=== PATIENT | female | born 1990 | race Caucasian/White ===

== ENCOUNTER 2017-03-11 01:35 | Inpatient (IN) | payer MEDICAID ==
[2017-03-11] VITALS (8 sets, daily range): BP systolic 109–154; BP diastolic 56–95
[~2017-03-11] VITALS: Ht 157.5 cm; Wt 83.9 kg
[~2017-03-11 01:35] MED LIST: DICLEGIS1 TCP PO; SEROQUEL400 MG PO
[2017-03-11] MEDS ORDERED: NOMEDS XX (01:56)
[2017-03-11 02:44] LABS: LYMPH # 3.7 K/mm3 (0.7-4.5); LYMPH % 30.6 % (10-50.0)
[2017-03-11 02:47] LABS: HEMOGLOBIN 12.1 g/dL (12.2-16.2)
--- NOTE | 2017-03-11 02:53 | Emergency Room Report ---
History of Present Illness Time Seen by [id number] Presenting Problem in Triage Pt arrived:Carried Presenting Problem:SORE, REDDENED KNOT ON RIGHT JAIN X 2 DAYS. HAS DEVELOPED INTO A BLISTER, INCREASED SWELLING, REDNESS AND SWELLING SINCE THEN. ALSO SIMILAR LEISION LEFT LEG UNDER THE KNEE CAP X 7 DAYS. 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 N Clinical Suspician of Infection? Y Mental Status: 1 - Regular (Normal Baseline) Sepsis Risk:Severe Sepsis Risk Have you (or family members/close friends) recently traveled outside the [place]? N If Yes, where/when: Have you had exposure to infectious disease within the past month? TB? Other? Specify: Source patient, RN notes reviewed, family, RN/MD Exam Limitations no limitations Comment This is a 26-year-old lady presented to the emergency room with a sore on her RIGHT confucianist, noticed first time 3 days ago, gradually getting worse, associated with chills and subjective fever. 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 The patient is afebrile upon arrival. She also has a history of iv drug abuse, but stated that she has not abused any drugs recently. ALLERGIES Coded Allergies: Sulfa (Sulfonamide Antibiotics) (Mild, 04/21/16) amoxicillin (Mild, 04/21/16) penicillin G (Mild, 04/21/16) cefprozil (From CEFZIL) (04/21/16) Uncoded Allergies: CEFIZIL (Mild, 12/09/15) Home Medications Reported Medications No Home Medications (NO HOME MEDICATIONS) 1 EACH XX ONCE History Medical History General CAD? No Angina: No [place]: No Hypertension? No Hyperlipidemia? No CHF? No DVT? No PE? No COPD? No Asthma? Yes Anemia? No GERD? No Gastric ulcers? No GI Bleed? No Hernia? No Thyroid Problems? No Hypothyroidism? No CVA? No Seizures? No Diabetes? No Renal Insuffiency? No End Stage Renal Disease? No UTI? No Stones? No BPH? No GB Disease: No Nephritic Syndrome? No Asplenia? No Hepatitis? Yes Sickle Cell Disease? No Arthritis? No Migraines? No Cataracts? No Glaucoma? No MRSA? Yes HIV? No TB? No Anxiety? No Depression? No Cancer? No More? No Immunization Hx DT/Tetanus NOT SURE Surgical Hx Previous Surgery?Y OVARIAN CYST X3 PODIATRIST Hx LMP 3 Weeks Ago Social History Smoking Hx Smoker: Current Every Day Smoker Tobacco: Yes Type Cigarettes Packs/day < 1 Pack Alcohol Alcohol: No Review of Systems All Other Systems Reviewed and Negative Constitutional see HPI, chills, fever (subjecttive) Skin lumps Physical Exam Vital Signs Vital Signs Date Time Temp Pulse Resp B/P Pulse O2 O2 Flow FiO2 Ox Delivery Rate 03/11 0241 116 16 128/75 100 03/11 0143 98.4 133 14 154/95 100 General Appearance normal appearance, WD/WN Eye Exam - bilateral eye normal exam, bilateral eye PERRL, bilateral eye EOMI Ear, Nose, Throat hearing grossly normal, normal ENT inspection Neck normal inspection, non-tender, supple, full range of motion Respiratory Status Yes: trachea midline, chest symmetrical, non tender chest. No: respiratory distress. Lung Sounds bilateral: normal breath sounds, lungs clear. 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 Right confucianist with soft tissue swelling, 5x5, erythematous, very tender to paplpation, extending into the right upper eyelid. eyelid Medical Decision Making LABS/Meds/Orders Pt receiving controlled substance in ED? No Comment 0315am - case d/w Dr Spaulding, advised of the patient's presentation, condition and findings, agreeable with admisssion, and management. Plan is to get an ECHO in am, and continue the iv Vancomycin. Results/Orders Laboratory Tests 03/11/17 023: Lactic Acid 1.1 03/11/17229: Sodium 139, Potassium 3.7, Chloride 101, Carbon Dioxide 29, BUN 8, Creatinine 0.7, Estimated Creat Clear 164, Estimated GFR (MDRD) 103, Glucose 90, Calcium 9.2, Total Bilirubin 0.2, AST 12 L, ALT 17, Alkaline Phosphatase 62, Total Protein 8.4 H, Albumin 3.6, Globulin 4.8 H, Albumin/Globulin Ratio 0.8 L, WBC 12.1 H, RBC 4.47, Hgb 12.1 L, Hct 37.9, MCV 84.9, RDW 15.9, Plt Count 356, MPV 7.0 L, Gran % 63.6, Gran # 7.7, Lymphocytes % 30.6, Monocytes % 4.4, Eosinophils % 1.0, Basophils % 0.3, Lymphocytes # 3.7, Monocytes # 0.5, Eosinophils # 0.1, Basophils # 0.0, PUBS MCHC 31.9, MCH 27.0 Current Medication Orders Sig/Sisi Start time Last Medication Dose Route Stop Time Status Admin Sodium Chloride 1,000 ML .STK-MED ONE 03/11 025 DC IV Miscellaneous 1 EACH CONSULT PHARMACY 03/11 024 AC Information * 03/11 1438 Sodium Chloride 1,000 ML .Q1H1M 03/11 024 DC IV 03/11 0345 Sodium Chloride 10 ML PRN PRN 03/11 0245 AC IV 03/12 0245 Orders Procedure Date/time Status Decision to admit 03/11 0319 Active URINALYSIS/COMPLETE 03/11 024 Active URINE 03/11 024 Active DRUG ABUSE SCREEN (10) 03/11 024 Active CULTURE, BLOOD 03/11 023 Active LACTIC ACID 03/11 023 Complete CBC WITH AUTO DIFF 03/11 023 Complete CHEM 12 PROFILE 03/11 0238 Complete Departure Departure Time of Disposition 0329 Disposition Still a Patient Clinical Impression Primary Impression: Cellulitis, face Secondary Impressions: History of drug abuse, History of endocarditis, Sinus tachycardia Condition STABLE Referrals [facility] F II (Family) ED Critical Care Critical Care No at [id number]
--- NOTE | 2017-03-11 02:53 | Emergency Room Report ---
History of Present Illness Time Seen by [id number] Presenting Problem in Triage Pt arrived:Carried Presenting Problem:SORE, REDDENED KNOT ON RIGHT MU-ISM X 2 DAYS. HAS DEVELOPED INTO A BLISTER, INCREASED SWELLING, REDNESS AND SWELLING SINCE THEN. ALSO SIMILAR LEISION LEFT LEG UNDER THE KNEE CAP X 7 DAYS. 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 N Clinical Suspician of Infection? Y Mental Status: 1 - Regular (Normal Baseline) Sepsis Risk:Severe Sepsis Risk Have you (or family members/close friends) recently traveled outside the [place]? N If Yes, where/when: Have you had exposure to infectious disease within the past month? TB? Other? Specify: Source patient, RN notes reviewed, family, RN/MD Exam Limitations no limitations Comment This is a 26-year-old lady presented to the emergency room with a sore on her RIGHT orthodoxy, noticed first time 3 days ago, gradually getting worse, associated with chills and subjective fever. 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 The patient is afebrile upon arrival. She also has a history of iv drug abuse, but stated that she has not abused any drugs recently. ALLERGIES Coded Allergies: Sulfa (Sulfonamide Antibiotics) (Mild, 04/21/16) amoxicillin (Mild, 04/21/16) penicillin G (Mild, 04/21/16) cefprozil (From CEFZIL) (04/21/16) Uncoded Allergies: CEFIZIL (Mild, 12/09/15) Home Medications Reported Medications No Home Medications (NO HOME MEDICATIONS) 1 EACH XX ONCE History Medical History General CAD? No Angina: No [place]: No Hypertension? No Hyperlipidemia? No CHF? No DVT? No PE? No COPD? No Asthma? Yes Anemia? No GERD? No Gastric ulcers? No GI Bleed? No Hernia? No Thyroid Problems? No Hypothyroidism? No CVA? No Seizures? No Diabetes? No Renal Insuffiency? No End Stage Renal Disease? No UTI? No Stones? No BPH? No GB Disease: No Nephritic Syndrome? No Asplenia? No Hepatitis? Yes Sickle Cell Disease? No Arthritis? No Migraines? No Cataracts? No Glaucoma? No MRSA? Yes HIV? No TB? No Anxiety? No Depression? No Cancer? No More? 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 Social History Smoking Hx Smoker: Current Every Day Smoker Tobacco: Yes Type Cigarettes Packs/day < 1 Pack Alcohol Alcohol: No Review of Systems All Other Systems Reviewed and Negative Constitutional see HPI, chills, fever (subjecttive) Skin lumps Physical Exam Vital Signs Vital Signs Date Time Temp Pulse Resp B/P Pulse O2 O2 Flow FiO2 Ox Delivery Rate 03/11 0241 116 16 128/75 100 03/11 0143 98.4 133 14 154/95 100 General Appearance normal appearance, WD/WN Eye Exam - bilateral eye normal exam, bilateral eye PERRL, bilateral eye EOMI Ear, Nose, Throat hearing grossly normal, normal ENT inspection Neck normal inspection, non-tender, supple, full range of motion Respiratory Status Yes: trachea midline, chest symmetrical, non tender chest. No: respiratory distress. Lung Sounds bilateral: normal breath sounds, lungs clear. 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 Right orthodoxy with soft tissue swelling, 5x5, erythematous, very tender to paplpation, extending into the right upper eyelid. eyelid Medical Decision Making LABS/Meds/Orders Pt receiving controlled substance in ED? No Comment 0315am - case d/w Dr Spaulding, advised of the patient's presentation, condition and findings, agreeable with admisssion, and management. Plan is to get an ECHO in am, and continue the iv Vancomycin. Results/Orders Laboratory Tests 03/11/17 023: Lactic Acid 1.1 03/11/17229: Sodium 139, Potassium 3.7, Chloride 101, Carbon Dioxide 29, BUN 8, Creatinine 0.7, Estimated Creat Clear 164, Estimated GFR (MDRD) 103, Glucose 90, Calcium 9.2, Total Bilirubin 0.2, AST 12 L, ALT 17, Alkaline Phosphatase 62, Total Protein 8.4 H, Albumin 3.6, Globulin 4.8 H, Albumin/Globulin Ratio 0.8 L, WBC 12.1 H, RBC 4.47, Hgb 12.1 L, Hct 37.9, MCV 84.9, RDW 15.9, Plt Count 356, MPV 7.0 L, Gran % 63.6, Gran # 7.7, Lymphocytes % 30.6, Monocytes % 4.4, Eosinophils % 1.0, Basophils % 0.3, Lymphocytes # 3.7, Monocytes # 0.5, Eosinophils # 0.1, Basophils # 0.0, PUBS MCHC 31.9, MCH 27.0 Current Medication Orders Sig/Sisi Start time Last Medication Dose Route Stop Time Status Admin Sodium Chloride 1,000 ML .STK-MED ONE 03/11 025 DC IV Miscellaneous 1 EACH CONSULT PHARMACY 03/11 024 AC Information * 03/11 1438 Sodium Chloride 1,000 ML .Q1H1M 03/11 024 DC IV 03/11 0345 Sodium Chloride 10 ML PRN PRN 03/11 0245 AC IV 03/12 0245 Orders Procedure Date/time Status Decision to admit 03/11 0319 Active URINALYSIS/COMPLETE 03/11 024 Active URINE 03/11 024 Active DRUG ABUSE SCREEN (10) 03/11 024 Active CULTURE, BLOOD 03/11 023 Active LACTIC ACID 03/11 023 Complete CBC WITH AUTO DIFF 03/11 023 Complete CHEM 12 PROFILE 03/11 0238 Complete Departure Departure Time of Disposition 0329 Disposition Still a Patient Clinical Impression Primary Impression: Cellulitis, face Secondary Impressions: History of drug abuse, History of endocarditis, Sinus tachycardia Condition STABLE Referrals [facility] F II (Family) ED Critical Care Critical Care No at [phone]
--- NOTE | 2017-03-11 07:23 | PHARMACY CLINIC NOTE ---
Patient Demographics Patient Demographics Admission date: 03/11/17 Date: 03/11/17 Time: 0723 Allergies Coded Allergies: Sulfa (Sulfonamide Antibiotics) (Mild, 04/21/16) amoxicillin (Mild, 04/21/16) penicillin G (Mild, 04/21/16) cefprozil (From CEFZIL) (04/21/16) Uncoded Allergies: CEFIZIL (Mild, 12/09/15) HEIGHT- FT: 5 IN: 2.00 K.[id number] VTE General Information Labs: Laboratory Tests 03/11 0230 Hematology Hgb (12.2 - 16.2 g/dL) 12.1 L Hct (37.0 - 47.0 %) 37.9 Plt Count (142 - 424 K/mm3) 356 Disclaimer The following section includes nursing documentation that has been pulled in for pharmacy review. Patient's VTE score: 0 Patient's VTE Risk: VERY LOW RISK Clinical trial participant? No VTE prophylaxis [id number] VTE prophylaxis ordered? Yes Type of prophylaxis/treatment: PRESTON at 0723
--- NOTE | 2017-03-11 08:56 | CONSULT NOTE ---
Pharmacokinetic Consult Date of consult: 03/11/17 Time of consult: 853 Referring provider: DR. SCHMIDT Reason for consult: VANCOMYCIN DOSING Allergies: Coded Allergies: Sulfa (Sulfonamide Antibiotics) (Mild, 04/21/16) amoxicillin (Mild, 04/21/16) penicillin G (Mild, 04/21/16) cefprozil (From CEFZIL) (04/21/16) Uncoded Allergies: CEFIZIL (Mild, 12/09/15) Home Medications: Reported Medications No Home Medications (NO HOME MEDICATIONS) 1 EACH XX ONCE Height (feet): 5 Height (inches): 2.00 Medical History: CAD? No Angina: No [place]: No Hypertension? No Hyperlipidemia? No CHF? No DVT? No PE? No COPD? No Asthma? Yes Anemia? No GERD? No Gastric ulcers? No GI Bleed? No Hernia? No Thyroid Problems? No Hypothyroidism? No CVA? No Seizures? No Diabetes? No Renal Insuffiency? No UTI? No Stones? No BPH? No GB Disease: No Nephritic Syndrome? No Asplenia? No Hepatitis? Yes Sickle Cell Disease? No Arthritis? No Migraines? No Cataracts? No Glaucoma? No MRSA? Yes HIV? No TB? No Anxiety? No Depression? No Cancer? No More? No Labs: Laboratory Tests 03/11/17 0230: Lactic Acid 1.1 03/11/17 0230: Sodium 139, Potassium 3.7, Chloride 101, Carbon Dioxide 29, BUN 8, Creatinine 0.7, Estimated Creat Clear 164, Estimated GFR (MDRD) 103, Glucose 90, Calcium 9.2, Total Bilirubin 0.2, AST 12 L, ALT 17, Alkaline Phosphatase 62, Total Protein 8.4 H, Albumin 3.6, Globulin 4.8 H, Albumin/Globulin Ratio 0.8 L, WBC 12.1 H, RBC 4.47, Hgb 12.1 L, Hct 37.9, MCV 84.9, RDW 15.9, Plt Count 356, MPV 7.0 L, Gran % 63.6, Gran # 7.7, Lymphocytes % 30.6, Monocytes % 4.4, Eosinophils % 1.0, Basophils % 0.3, Lymphocytes # 3.7, Monocytes # 0.5, Eosinophils # 0.1, Basophils # 0.0, PUBS MCHC 31.9, MCH 27.0 Microbiology 09/11 0230 BLOOD: Anaerobic Blood Culture - RECD 03/11 230 BLOOD: Aerobic Blood Culture - RECD 03/11 230 BLOOD: Anaerobic Blood Culture - RECD 03/11 230 BLOOD: Aerobic Blood Culture - RECD Problem List: 1. Cellulitis, face Plan: BASED ON PATIENT FACTORS, RECOMMEND VANCOMYCIN 1500 MG IV ONCE, FOLLOWED BY VANCOMYCIN 1250 MG IV Q12H. WILL OBTAIN VANCOMYCIN TROUGH LEVEL PRIOR TO 4TH DOSE. PHARMACY WILL FOLLOW DAILY AND ADJUST APPROPRIATE. at 0855
--- NOTE | 2017-03-11 08:58 | HISTORY AND PHYSICAL REPORT ---
History and Physical ([facility]) Date of admission: 03/11/17 Chief complaint: infection on her face History: History of Present Illness: Ms Rebecca marrero s a 26-year-old lady who presented to the emergency room with a sore on her RIGHT scientologist. She first noticed this place 3 days ago. It gradually worsened with edema and pain on this side of the face. She did express some pus from the wound. She experienced chills and subjective fever. Thus she presented to the ER. She was adm for IV ABX. Patient has a history of endocarditis of the tricuspid valve for which she was treated with daptomycin (x6 weeks) at [facility] in [place] approximately 1 year ago. She also has a history of IV drug abuse, but stated that she has not abused any drugs since 10/2016. She arrived to her room about 0300 and has slept little. She cannot tell any difference in the sore on her face. She states that she also has a place on her left leg. Past Medical History: Medical History: CAD? No Angina: No [place]: No Hypertension? No Hyperlipidemia? No CHF? No DVT? No PE? No COPD? No Asthma? No Anemia? No GERD? No Gastric ulcers? No GI Bleed? No Hernia? No Thyroid Problems? No Hypothyroidism? No CVA? No Seizures? No Diabetes? No Renal Insuffiency? No UTI? No Stones? No BPH? No GB Disease: No Nephritic Syndrome? No Asplenia? No Hepatitis? Yes Sickle Cell Disease? No Arthritis? No Migraines? No Cataracts? No Glaucoma? No MRSA? Yes HIV? No TB? No Anxiety? No Depression? No Cancer? No More? No Additional hx: H/O of endocarditis Surgical history: Previous Surgery?Y OVARIAN CYST X3 Medications: Reported Medications No Home Medications (NO HOME MEDICATIONS) 1 EACH XX ONCE Allergies: Coded Allergies: Sulfa (Sulfonamide Antibiotics) (Mild, 04/21/16) amoxicillin (Mild, 04/21/16) penicillin G (Mild, 04/21/16) cefprozil (From CEFZIL) (04/21/16) Uncoded Allergies: CEFIZIL (Mild, 12/09/15) Family History: Family history: Postive for: cancer. Negative for: CAD, DM. Social History: Smoking Hx Tobacco: Yes Smoker: Current Every Day Smoker Type: Cigarettes Packs/day: < 1 Pack Are you exposed to second hand Yes Alcohol: Alcohol: No Hx of Drug Use: Drug Use? No Review of Systems: Constitutional Positive for: chills. ENT No: ear ache, mouth pain, nasal congestion, sore throat. Cardiovascular No: chest pain, edema, palpitations. Respiratory No: shortness of air, non-productive, productive cough (sputum). GI Positive for: nausea, vomitting. No: GERD, abdominal pain, constipation, diarrhea, hematemeis, hematochezia, melena. (female) No: frequency, hematuria. Neurological No: confusion, dizziness, gait problem, headache, seizure, syncope. Musculoskeletal No: extremity pain, extremity swelling, joint pain. Physical Exam: Vital signs: 1ST Vital Signs Result Date Time Pulse Ox 100 03/11 143 B/P 154/95 03/11 143 Temp 98.4 03/11 143 Pulse 133 03/11 143 Resp 14 03/11 143 O2 Delivery ROOM AIR 03/11 400 Exam: General appearance: alert, no acute distress, sitting up in the bed getting ready to eat breakfast Eyes: anicteric, pupils reactive to light ENT: mucous membranes moist, pharynx normal Neck: full range of motion, lymphadenopathy (right), thyroid (normal) Cardiovascular: regular rate & rhythm Respiratory: clear to auscultation (bilat anterior and posterior) ABD: non-distended, soft, no tenderness, no guarding, bowel sounds present Extremities: full range of motion, no peripheral edema, scabs scattered on lower legs; one on left leg has surrounding erythema; Bilateral arms with scabs up both arms ( states she has not used IV Drugs since 10/2016 but picks at the scabs) Skin: edema of right side of the face and periorbital edema; multiple erythemic papules scattered on the face and around the hairline; right scientologist with a small draining wound with surrounding erythema Neuro: alert, oriented, speech clear Lab data: Labs: Laboratory Tests 03/11/17229: Lactic Acid 1.1 03/11/17229: Sodium 139, Potassium 3.7, Chloride 101, Carbon Dioxide 29, BUN 8, Creatinine 0.7, Estimated Creat Clear 164, Estimated GFR (MDRD) 103, Glucose 90, Calcium 9.2, Total Bilirubin 0.2, AST 12 L, ALT 17, Alkaline Phosphatase 62, Total Protein 8.4 H, Albumin 3.6, Globulin 4.8 H, Albumin/Globulin Ratio 0.8 L, WBC 12.1 H, RBC 4.47, Hgb 12.1 L, Hct 37.9, MCV 84.9, RDW 15.9, Plt Count 356, MPV 7.0 L, Gran % 63.6, Gran # 7.7, Lymphocytes % 30.6, Monocytes % 4.4, Eosinophils % 1.0, Basophils % 0.3, Lymphocytes # 3.7, Monocytes # 0.5, Eosinophils # 0.1, Basophils # 0.0, PUBS MCHC 31.9, MCH 27.0 Microbiology 03/11 230 BLOOD: Anaerobic Blood Culture - RECD 03/11 230 BLOOD: Aerobic Blood Culture - RECD 03/11 230 BLOOD: Anaerobic Blood Culture - RECD 03/11 230 BLOOD: Aerobic Blood Culture - RECD Diagnosis(es): 1. Cellulitis, face 2. History of drug abuse 3. History of endocarditis Plan: Hibiclens wash of body to include face; wound culture; continue with IV VANC at 0858
--- NOTE | 2017-03-11 22:01 | RADIOLOGY REPORT PS360 ---
PROCEDURE: 2-D M-mode and color Doppler study INDICATIONS FOR THE TEST: Chest pain+ COPD Heart Murmur+ Tobacco Smoking+ Palpitations Fatigue Syncope Edema+ Hypertension Diabetes Mellitus Rheumatic Fever SOB REYNOLDS Obesity Hyperlipidemia Family History HD Additional History bug bite to rt eye with abscess, hx of endocarditis TV PATIENT INFORMATION HEIGHT: 62 WEIGHT: 185 GENDER: Female B/P: 121/72 2-D/M-MODE INTERPRETATION: 2-D MEASUREMENTS OBSERVED VALUES IN CMS Right Ventricular Dimension (RVDd) 2.5 Interventricular Septum (Thickness)(IVsd) 1.1 Left Ventricular Internal Dimensions(LVIDd) 4.5 Left Ventricular Posterior Wall (Thickness)(LVPWd) 1.0 Aortic Root 2.6 Aortic Cusp Separation 1.7 Left Atrial Dimensions (LAD) 3.9 2D 1. Left atrium is qualitatively mildly enlarged, left ventricle is normal size, there is no concentric left ventricular hypertrophy, visually estimated ejection fraction 55% with no obvious regional wall motion abnormality. 2. The right atrium is normal size, the right ventricle is qualitatively mildly enlarged with normal contractility. 3. The aortic valve is minimally thickened and fibrosed. 4. The mitral and tricuspid valve leaflets are minimally thickened, there is no obvious valvular regurgitation seen. 5. The pulmonic valve is poorly visualized. 6. No significant pericardial effusion noted. DOPPLER INTERROGATION: Doppler interrogation of the aortic mitral and tricuspid valvular presence of mild mitral and tricuspid regurgitation, tricuspid and jet velocity is insufficient for calculation of the right ventricular systolic pressure. CONCLUSION: 1. Normal left ventricular size, preserved left ventricular systolic function, visually estimated ejection fraction 55% with no obvious regional wall motion abnormality. 2. Mildly enlarged right ventricle with normal contractility. 3. Mild mitral and tricuspid regurgitation. 4. No obvious valvular regurgitation identified with this study.
[2017-03-12] VITALS (8 sets, daily range): BP systolic 119–139; BP diastolic 67–88
--- NOTE | 2017-03-12 09:17 | ACUTE CARE PROGRESS NOTE (QUA) ---
Progress Notes Subjective Date 03/12/17 Time 0911 Note Patient does not feel cellulitis is any better; thinks has a place on the left side of face. Is eating without problems; ambulates well; denies CP and SOB; voiding QS Objective Findings Microbiology 03/11 1130 WOUND: Wound Culture - RECD Vital Signs Date Time Temp Pulse Resp B/P Pulse O2 O2 Flow FiO2 Ox Delivery Rate 03/12 0723 98.5 104 18 139/77 98 ROOM AIR 03/12 0400 99.0 92 16 138/88 100 ROOM AIR 03/12 0035 98.4 96 18 137/72 100 ROOM AIR 03/11 2032 98.5 100 20 134/76 99 03/11 1956 98.5 100 20 134/76 99 ROOM AIR 03/11 1630 97.9 99 18 112/64 100 ROOM AIR 03/11 0945 98.6 96 16 109/56 100 Current Medications Acetaminophen 650 MG Q6HP PRN PO Ibuprofen 600 MG Q6HP PRN PO Ibuprofen 0 .STK-MED ONE PO (DC) Vancomycin HCl 1,250 MG Q12H IV Sodium Chloride 250 ML Sodium Chloride 1,000 ML .STK-MED ONE IV (DC) Nicotine 21 MG DAILYP PRN TD Sodium Chloride 1,000 ML .Q8H IV Sodium Chloride 10 ML PRN PRN IV (DC) 03/11 1500 03/11 2300 03/12 0700 Intake Total 475 695 4468 Output Total Balance 427 846 7678 Intake, Oral 017 324 2735 Last VS-Temp:98.5 B/P:139/77 Pulse:104 Resp:18 SaO2:98 ROOM AIR Last weight lbs:185 oz:0 K.916 Method:Stated ECHO 03/11/17 CONCLUSION: 1. Normal left ventricular size, preserved left ventricular systolic function, visually estimated ejection fraction 55% with no obvious regional wall motion abnormality. 2. Mildly enlarged right ventricle with normal contractility. 3. Mild mitral and tricuspid regurgitation. 4. No obvious valvular regurgitation identified with this study. Exam General appearance: alert, no acute distress Cardiovascular: regular rate & rhythm Respiratory: clear to auscultation (bilat anterior and posterior) ABD: soft, no tenderness, bowel sounds present Extremities: multiple scabs on arms and legs; left lower leg erythema has resolved Skin: overall face with less edema and erythema; still with periorbital edema ; some blotches of redness on left side of face and cheek; papular scabs appear less on face ( she states she washed face and body with Hibiclens yesterday) Neuro: alert, oriented, speech clear Assessment/Plan Problem List 1. Cellulitis, face 2. History of drug abuse 3. History of endocarditis Patient condition slightly improved Plan: continue current care This inpt stay is expected to cross 2 MNs from start of care Yes at 0917
--- NOTE | 2017-03-12 09:17 | ACUTE CARE PROGRESS NOTE (QUA) ---
Progress Notes Subjective Date 03/12/17 Time 0911 Note Patient does not feel cellulitis is any better; thinks has a place on the left side of face. Is eating without problems; ambulates well; denies CP and SOB; voiding QS Objective Findings Microbiology 03/11 1130 WOUND: Wound Culture - RECD Vital Signs Date Time Temp Pulse Resp B/P Pulse O2 O2 Flow FiO2 Ox Delivery Rate 03/12 0723 98.5 104 18 139/77 98 ROOM AIR 03/12 0400 99.0 92 16 138/88 100 ROOM AIR 03/12 0035 98.4 96 18 137/72 100 ROOM AIR 03/11 2032 98.5 100 20 134/76 99 03/11 1956 98.5 100 20 134/76 99 ROOM AIR 03/11 1630 97.9 99 18 112/64 100 ROOM AIR 03/11 0945 98.6 96 16 109/56 100 Current Medications Acetaminophen 650 MG Q6HP PRN PO Ibuprofen 600 MG Q6HP PRN PO Ibuprofen 0 .STK-MED ONE PO (DC) Vancomycin HCl 1,250 MG Q12H IV Sodium Chloride 250 ML Sodium Chloride 1,000 ML .STK-MED ONE IV (DC) Nicotine 21 MG DAILYP PRN TD Sodium Chloride 1,000 ML .Q8H IV Sodium Chloride 10 ML PRN PRN IV (DC) 03/11 1500 03/11 2300 03/12 0700 Intake Total 228 100 2316 Output Total Balance 528 720 6703 Intake, Oral 008 851 5839 Last VS-Temp:98.5 B/P:139/77 Pulse:104 Resp:18 SaO2:98 ROOM AIR Last weight lbs:185 oz:0 K.916 Method:Stated ECHO 03/11/17 CONCLUSION: 1. Normal left ventricular size, preserved left ventricular systolic function, visually estimated ejection fraction 55% with no obvious regional wall motion abnormality. 2. Mildly enlarged right ventricle with normal contractility. 3. Mild mitral and tricuspid regurgitation. 4. No obvious valvular regurgitation identified with this study. Exam General appearance: alert, no acute distress Cardiovascular: regular rate & rhythm Respiratory: clear to auscultation (bilat anterior and posterior) ABD: soft, no tenderness, bowel sounds present Extremities: multiple scabs on arms and legs; left lower leg erythema has resolved Skin: overall face with less edema and erythema; still with periorbital edema ; some blotches of redness on left side of face and cheek; papular scabs appear less on face ( she states she washed face and body with Hibiclens yesterday) Neuro: alert, oriented, speech clear Assessment/Plan Problem List 1. Cellulitis, face 2. History of drug abuse 3. History of endocarditis Patient condition slightly improved Plan: continue current care This inpt stay is expected to cross 2 MNs from start of care Yes at 0917
[2017-03-13 00:16] VITALS: BP 122/69
[2017-03-13 04:03] VITALS: BP 106/73
[2017-03-13 08:00] VITALS: BP 134/77
--- NOTE | 2017-03-13 08:20 | ACUTE CARE PROGRESS NOTE (QUA) ---
Progress Notes Subjective Date 03/13/17 Time 0813 Note better today; she thinks the swelling is better; slept well; eating without problems; has been up in the room; states she did wash with Hibiclens yesterday Objective Findings Laboratory Tests 03/12/17 1633: Vancomycin Trough 4.9 L Vital Signs Date Time Temp Pulse Resp B/P Pulse O2 O2 Flow FiO2 Ox Delivery Rate 03/13 040 98.2 78 18 106/73 95 ROOM AIR 03/13 0016 98.2 88 18 122/69 99 ROOM AIR 03/12 2017 98.3 99 18 122/67 100 03/12 1944 98.3 99 18 122/67 100 ROOM AIR 03/12 1600 98.5 84 20 119/72 97 ROOM AIR 03/12 1134 98.2 86 20 122/78 97 ROOM AIR 03/12 0915 98.5 104 18 139/77 98 Current Medications Sodium Chloride 250 ML .STK-MED ONE IV (DC) Vancomycin HCl 0 .STK-MED ONE .ROUTE (DC) Sodium Chloride 0 .STK-MED ONE IV (DC) Vancomycin HCl 0 .STK-MED ONE .ROUTE (DC) Vancomycin HCl 1,500 MG Q8H IV Sodium Chloride 250 ML Sodium Chloride 250 ML .STK-MED ONE IV (DC) Vancomycin HCl 0 .STK-MED ONE .ROUTE (DC) Miscellaneous Information 1 EACH ONCE ONE * (DC) Acetaminophen 0 .STK-MED ONE PO (DC) Acetaminophen 650 MG Q6HP PRN PO Ibuprofen 600 MG Q6HP PRN PO Vancomycin HCl 1,250 MG Q12H IV (DC) Sodium Chloride 250 ML Nicotine 21 MG DAILYP PRN TD Sodium Chloride 1,000 ML .Q8H IV 03/12 1500 03/12 2300 03/13 0700 Intake Total 1000 480 Output Total Balance 1000 480 Intake, Oral 1000 480 Last VS-Temp:98.2 B/P:106/73 Pulse:78 Resp:18 SaO2:95 ROOM AIR Last weight lbs:185 oz:0 K.916 Method:Stated > WOUND CULTURE Final 03/13/17-645 Organism 1 STAPHYLOCOCCUS AUREUS Organism 2 STAPHYLOCOCCUS EPIDERMIDIS S AUREUS S MICHAEL M.I.C. RX M.I.C. RX --------- ------ --------- ------ TRIMET/SULFA <=10 S CLINDAMYCIN <=0.25 S <=0.25 S ERYTHROMYCIN >=8 R >=8 R GENTAMICIN <=0.5 S <=0.5 S LEVOFLOXACIN 4 R <=0.12 R NITROFURANTOIN <=16 S <=16 S OXACILLIN >=4 R >=4 R BENZYLPEN >=0.5 R >=0.5 R RIFAMPIN <=0.5 S <=0.5 S TETRACYCLINE <=1 S <=1 S VANCOMYCIN 1 S 1 S Exam General appearance: alert, active, no acute distress, well-developed, well- nourished Cardiovascular: regular rate & rhythm Respiratory: clear to auscultation (bilat anterior and posterior) Extremities: one inflammed area on left lower leg Skin: face with less edema and minimal left facial erythema Neuro: alert, oriented Assessment/Plan Problem List 1. Cellulitis, face 2. History of drug abuse 3. History of endocarditis Patient condition Improved Plan: Wound culture + MRSA sensitive to Septra and Clindamycin; She is allergic to Sulfa; Can be discharged on the Clindamycin; Will need to continue to wash with Hibiclens This inpt stay is expected to cross 2 MNs from start of care No at 0819
--- NOTE | 2017-03-13 08:36 | CONSULT NOTE ---
Pharmacokinetic Consult Date of consult: 03/13/17 Time of consult: 0831 Referring provider: DR. SCHMIDT Reason for consult: VANCOMYCIN TROUGH LEVEL Allergies: Coded Allergies: Sulfa (Sulfonamide Antibiotics) (Mild, 04/21/16) amoxicillin (Mild, 04/21/16) penicillin G (Mild, 04/21/16) cefprozil (From CEFZIL) (04/21/16) Uncoded Allergies: CEFIZIL (Mild, 12/09/15) Home Medications: Reported Medications No Known Home Medications Height (feet): 5 Height (inches): 2.00 Medical History: CAD? No Angina: No NH: No Hypertension? No Hyperlipidemia? No CHF? No DVT? No PE? No COPD? No Asthma? No Anemia? No GERD? No Gastric ulcers? No GI Bleed? No Hernia? No Thyroid Problems? No Hypothyroidism? No CVA? No Seizures? No Diabetes? No Renal Insuffiency? No UTI? No Stones? No BPH? No GB Disease: No Nephritic Syndrome? No Asplenia? No Hepatitis? Yes Sickle Cell Disease? No Arthritis? No Migraines? No Cataracts? No Glaucoma? No MRSA? Yes HIV? No TB? No Anxiety? No Depression? No Cancer? No More? No Additional hx: H/O of endocarditis Labs: Laboratory Tests 03/12/17 1633: Vancomycin Trough 4.9 L Problem List: 1. Cellulitis, face Plan: BASED ON VANCOMYCIN TROUGH LEVEL AND PATIENT FACTORS, RECOMMEND CHANGING DOSE AND INTERVAL TO VANCOMYCIN 1500 MG IV Q8H. WILL OBTAIN ANOTHER VANCOMYCIN TROUGH LEVEL PRIOR TO DOSE TOMORROW MORNING. PHARMACY WILL CONTINUE TO MONITOR DAILY AND ADJUST APPROPRIATE. at 0835
[2017-03-13] MEDS ORDERED: CLINDAMYCIN HC300 MG PO (09:16)
--- NOTE | 2017-03-14 21:22 | DISCHARGE SUMMARY STANDARD ---
Discharge Summary ([facility]2) Date of admission: 03/11/17 Date of discharge: 03/13/17 Problem List: 1. Cellulitis, face 2. History of drug abuse 3. History of endocarditis History of present illness: History of Present Illness: Ms Rebecca marrero s a 26-year-old lady who presented to the emergency room with a sore on her RIGHT denominational. She first noticed this place 3 days ago. It gradually worsened with edema and pain on this side of the face. She did express some pus from the wound. She experienced chills and subjective fever. Thus she presented to the ER. She was adm for IV ABX. Patient has a history of endocarditis of the tricuspid valve for which she was treated with daptomycin (x6 weeks) at [facility] in [place] approximately 1 year ago. She also has a history of IV drug abuse, but stated that she has not abused any drugs since 10/2016. She arrived to her room about 0300 and has slept little. She cannot tell any difference in the sore on her face. She stated that she also has a place on her left leg. Exam on admission: 1ST Vital Signs Result Date Time Pulse Ox 100 03/11 0143 B/P 154/95 03/11 0143 Temp 98.4 03/11 0143 Pulse 133 03/11 0143 Resp 14 03/11 0143 O2 Delivery ROOM AIR 03/11 0400 Exam: General appearance: alert, no acute distress, sitting up in the bed getting ready to eat breakfast Eyes: anicteric, pupils reactive to light ENT: mucous membranes moist, pharynx normal Neck: full range of motion, lymphadenopathy (right), thyroid (normal) Cardiovascular: regular rate & rhythm Respiratory: clear to auscultation (bilat anterior and posterior) ABD: non-distended, soft, no tenderness, no guarding, bowel sounds present Extremities: full range of motion, no peripheral edema, scabs scattered on lower legs; one on left leg has surrounding erythema; Bilateral arms with scabs up both arms ( states she has not used IV Drugs since 10/2016 but picks at the scabs) Skin: edema of right side of the face and periorbital edema; multiple erythemic papules scattered on the face and around the hairline; right denominational with a small draining wound with surrounding erythema Neuro: alert, oriented, speech clear Hospital Course: Patient was started on IV vanc on admission. She washed her face and body with Hibiclens daily. The facial erythema and edema greatly improved as did the leg erythema and facial acne. She ate well and ambulated in in her room. Culture revealed MRSA sensitive to septra (which she is allergic to ) and clindamycin. On 03/13/17 she was improved and ready to be discharged to home on PO ABX. Laboratory data this visit: 03/11/17 0230: Lactic Acid 1.1 03/11/17 0230: Sodium 139, Potassium 3.7, Chloride 101, Carbon Dioxide 29, BUN 8, Creatinine 0.7, Estimated Creat Clear 164, Estimated GFR (MDRD) 103, Glucose 90, Calcium 9.2, Total Bilirubin 0.2, AST 12 L, ALT 17, Alkaline Phosphatase 62, Total Protein 8.4 H, Albumin 3.6, Globulin 4.8 H, Albumin/Globulin Ratio 0.8 L, WBC 12.1 H, RBC 4.47, Hgb 12.1 L, Hct 37.9, MCV 84.9, RDW 15.9, Plt Count 356, MPV 7.0 L, Gran % 63.6, Gran # 7.7, Lymphocytes % 30.6, Monocytes % 4.4, Eosinophils % 1.0, Basophils % 0.3, Lymphocytes # 3.7, Monocytes # 0.5, Eosinophils # 0.1, Basophils # 0.0, PUBS MCHC 31.9, MCH 27.0 > WOUND CULTURE Final 03/13/17 Organism 1 STAPHYLOCOCCUS AUREUS Organism 2 STAPHYLOCOCCUS EPIDERMIDIS S AUREUS S HUDSONER M.I.C. RX M.I.C. RX --------- ------ --------- ------ TRIMET/SULFA <=10 S CLINDAMYCIN <=0.25 S <=0.25 S ERYTHROMYCIN >=8 R >=8 R GENTAMICIN <=0.5 S <=0.5 S LEVOFLOXACIN 4 R <=0.12 R NITROFURANTOIN <=16 S <=16 S OXACILLIN >=4 R >=4 R BENZYLPEN >=0.5 R >=0.5 R RIFAMPIN <=0.5 S <=0.5 S TETRACYCLINE <=1 S <=1 S VANCOMYCIN 1 S 1 S Imagin03/11/17 ECHO CONCLUSION: 1. Normal left ventricular size, preserved left ventricular systolic function, visually estimated ejection fraction 55% with no obvious regional wall motion abnormality. 2. Mildly enlarged right ventricle with normal contractility. 3. Mild mitral and tricuspid regurgitation. 4. No obvious valvular regurgitation identified with this study. Discharge medications: Start taking the following new medications: Clindamycin Hcl (Clindamycin 300MG) 300 MG CAPSULE 300 MILLIGRAM ORAL FOUR TIMES A DAY Qty = 28 No Refills Disposition: Discharged to home in stable and satisfactory condition. with: WM Lucy HOLBROOK II Follow up: 2 DAYS Comments, Specifics r/t O2, Equipment, Antibiotics, etc: Discussed Rehab Activity: Cont Current activity Diet: Continue same diet Discharge to: HOME Agency needed? N Meds as per reconciliation sheet at [id number]
--- OUTSIDE RECORDS SUMMARY | 2017-04-08 06:11 | External Medical Summary Rpt ---
Author Author , LIBAN Moore LIBAN Address Unknown Phone [email or web address] Care Team Providers Care Strategic Development Manager Name Role Phone [facility] Unavailable [facility]ICE, [facility] TOBY, OTBY Unavailable Unavailable PRETTY JAM, PRETTY JAM Unavailable Unavailable [facility] Unavailable Unavailable [facility]YS[facility]ANS, [facility] FAITH MARIYA, VIANNEY MARIYA Unavailable Unavailable FAITH CAROLA, FAITH CAROLA Unavailable Unavailable DANYELL, DANYELL Unavailable Unavailable DALE RUPINDER, DALE Unavailable Unavailable RUPINDER [facility], Unavailable Unavailable [facility] Unavailable Unavailable INC, [facility] HARTIG KAROLINA, HARTIG Unavailable Unavailable KAROLINA [facility], [facility]YNCH Unavailable Unavailable AND HERNANDEZ LIVAN, HERNANDEZ LIVAN Unavailable Unavailable ANGELA MCKOY, ANGELA Unavailable Unavailable MCKOY LAMBERS DON, LAMBERS Unavailable Unavailable DON [facility], Unavailable Unavailable [facility], Unavailable Unavailable PLL[facility], [facility] LOMELI JOH, Unavailable Unavailable YANI AARON POLICASTRO RUPINDER, Unavailable Unavailable POLICA[facility]O RUPINDER [facility] Unavailable Unavailable [facility], [facility] Unavailable Unavailable [facility], [facility] RENIVÁN TURCIOS, RENUSCTed Unavailable Unavailable KAROLINA HESS, Unavailable Unavailable MARIA A HEA PATEL GUR, PATEL Unavailable Unavailable YAMILA NIEVES, Unavailable Unavailable SARAHI JOSHUA, JOSHUA Unavailable Unavailable [facility] Unavailable Unavailable FLOOR SUPERVISOR , [facility] FLOOR SUPERVISOR [facility] Unavailable Unavailable PH[facility]ICIANS, [facility] ZAID ARAUJO Unavailable Unavailable [facility] Un[facility] Un[facility], [facility] Unavailable Unavailable ME, [facility] BILLY SCO, BILLY SCO Unavailable Unavailable VON HOENE AMA, VON Unavailable Unavailable HOENE AMA TAMI EDEN Unavailable Unavailable MIRANDA Purpose Continuity of Care Document - 04-17-2011 through 2016 Problems Code Diagnosis DOS Provider Status N390 URINARY 07-06-2016 ST TRACT [facility] INFECTION HEALTHCARE SITE NOT EDGE SPECIFIED R5381 OTHER 07-06-2016 [facility] R5383 OTHER 07-06-2016 [facility] O031 DELAY/EXCES 04-23-2016 [facility]IA S [facility] FOLLOW PRACTICE INCMPL SPONT N939 ABNORMAL 04-22-2016 QUALIFIED UTERINE & EMERGENCY VAGINAL SPECIALI BLEEDING UNSPECIFIED R102 PELVIC AND 04-22-2016 QUALIFIED PERINEAL EMERGENCY PAIN SPECIALI R7889 FINDING OTH 04-22-2016 QUALIFIED SPEC EMERGENCY SUBSTANCES SPECIALI NOT NORM FOUND BLOOD Z8614 PERSONAL HX 04-22-2016 [facility] R[facility] INFECTION Z880 ALLERGY 04-22-2016 [facility] Z882 ALLERGY 04-22-2016 [facility] STATUS N898 OTHER 04-21-2016 [facility] SPECIFIED [facility], NONINFLAMMA PLLC TORY DISORDERS VAGINA O036 DELAY/EXCES 04-21-2016 [facility]W [facility] CMPL/UNS SPONT P87024 CARRIER/GERTRUDIS 04-21-2016 [facility] METHIC[facility] RSIST STAPH Z720 TOBACCO USE 04-21-2016 [facility] R799 ABNORMAL 04-19-2016 ST FINDING OF CAT BLOOD PHYSICIANS CHEMISTRY UNSPECIFIED M1288 OTHER 04-18-2016 [facility] ARTHROPATHI ES NEC OTHER SPEC SITE M609 MYOSITIS 04-18-2016 [facility] UNSPECIFIED [facility] 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 INSUFFICIEN CY B1920 UNS VIRAL 04-15-2016 [facility] WITHOUT PHYSICIANS HEPATIC COMA I330 ACUTE AND 04-15-2016 [facility] INFECTIVE PHYSICIANS ENDOCARDITI S M4650 OTHER 04-15-2016 [facility] SPONDYLOPAT PHYSICIANS HIES SITE UNSPECIFIED K48704 SPONDYLOSIS 04-15-2016 [facility] W/O ASSOCIATES MYELOPATH/R [facility] ADICULOPATH Y LUMB RGN R7881 BACTEREMIA 04-15-2016 [facility] PHYS[facility]IANS B1710 ACUTE 03-27-2016 ST HEPATITIS C CAT WITHOUT MED CTR FLOOR SUPERVISOR HEPATIC ST COMA Y51190 OTHER LONG 02-29-2016 ST TERM CAT CURRENT MED CTR FLOOR SUPERVISOR DRUG ST THERAPY A499 BACTERIAL 02-21-2016 ST INFECTION CAT UNSPECIFIED PHYSICIANS 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 02-15-2016 ST C TRICUSPID ACT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 INSUFFICIEN CY I38 ENDOCARDITI 02-15-2016 ANESTHESIA S VALVE GROUP UNSPECIFIED PRACTICE Z452 ENCOUNTER 02-15-2016 RADIOLOGY ADJUSTMENT& ASSOCIATES [facility] VASCULAR ACCESS DEVICE Z331 02-11-2016 [facility] CAT INCIDENTAL PHYSICIANS A4102 SEPSIS D/T 02-10-2016 ST METHICILLIN CAT RSIST [facility]ALTHCARE STAPH [facility] I2690 SEPTIC 02-10-2016 ST PULMONARY CAT EMBO W/O HEALTHCARE ACUTE COR EDGE PULMONALE C00678 PRE-EXISTIN 02-10-2016 ST G ESSENTIAL CAT HTN COMP HEALTHCARE PREG FIRST [facility] TRI C50689 OTH 02-10-2016 ST MATERNAL CAT INF & HEALTHCARE PARASIT DZ EDGE COMP PREG 1ST TRI U00525 DRUG USE 02-10-2016 ST COMPLICATIN CAT G [facility]ALTHCARE [facility] TRIMESTER Z3A01 LESS THAN 8 02-10-2016 ST WEEKS CAT [facility] K5900 CONSTIPATIO 02-06-2016 [facility] N PHYSICIANS, UNSPECIFIED PLLC O2691 02-06-2016 [facility] RELATED [facility]YS[facility], CONDITIONS PLLC UNS 1ST TRIMESTER N8320 UNSPECIFIED 01-28-2016 [facility] OVARIAN PHYSICIANS, CYSTS PLLC R1032 LEFT LOWER 01-28-2016 [facility] QUADRANT [facility], PAIN PLLC J029 ACUTE 12-09-2015 [facility] PHARYNGITIS [facility]YSICIANS, PLLC UNSPECIFIED V741 SCREENING 02-17-2015 ST EXAMINATION CAT FOR PHYSICIANS PULMONARY TUBERCULOSI S 44742 TWIN 07-14-2014 ST CAT UNSPECIFIED MED CTR TO EPISODE OF CARE 36251 OTH CURRENT 08-09-2011 [facility] MAT CONDS MATERNAL CLASSIFIABL MED E ELSW ANTPRTM 71766 DECR 08-09-2011 [facility] MOVMNTS MATERNAL MGMT MOTH MED ANTPRTM COND/COMP 37350 08-09-2011 [facility] DISTRESS MATERNAL AFFECT MED MANAGEMENT MOTH ANTEPARTUM V239 UNSPECIFIED 08-09-2011 [facility] HIGH-RISK MATERNAL MED 25647 UNS 04-17-2011 [facility] ABNORM MGMT MATERNAL MOTH ME ANTPRTM COND/COMP L02.91 CUTANEOUS ABSCESS, UNSPECIFIED L03.211 CELLULITIS OF FACE N83.209 UNSPECIFIED OVARIAN CYST, UNSPECIFIED SIDE R00.0 TACHYCARDIA , UNSPECIFIED R10.9 UNSPECIFIED ABDOMINAL PAIN Z34.90 ENCNTR FOR SUPRVSN OF NORMAL , UNSP, UNSP TRIMESTER Z86.79 PERSONAL HISTORY OF OTHER DISEASES OF THE CIRCULATORY SYSTEM Z87.898 PERSONAL HISTORY OF OTHER SPECIFIED CONDITIONS Allergies, Adverse Reactions, Alerts Clinical Alert Notifications Alert Member has >/= 3 hosp admit & >/= 1 ED visit in 365 days Medications Na ND Rx Da Fi Fi Am Da Di Ph RX Ph St me C No te ll ll ou ys ag ar # ys at rm s nt no ma ic us Or Da si cy ia de te s n re d QU 16 05 06 30 30 00 GR Ac ET 72 -1 -2 .0 00 AN ti IA 90 9- 3- 00 02 T ve PI 14 20 20 24 CO NE 80 17 17 23 UN 1 69 TY FU PENNY BERNARD TE S, 20 IN 0 C. MG TA B NC 57 05 06 30 30 00 GR Ac RT 66 -0 -0 .0 00 AN ti AZ 40 3- 2- 00 02 T ve AP 50 20 20 26 CO IN 01 17 17 48 UN E [address] MG BERNARD S, TA BL IN ET C. BU 64 05 06 90 30 00 GR Ac SP 38 -0 -0 .0 00 AN ti IR 00 3- 2- 00 02 T ve ON 74 20 20 26 CO E 20 17 17 48 UN HC [address] EBRNARD MG S, TA IN BL C. ET QU 16 04 05 30 30 00 GR Ac ET 72 -1 -1 .0 00 AN ti IA 90 7- 9- 00 02 T ve PI 14 20 20 24 CO NE 80 17 17 23 UN [address] RA BERNARD TE S, 20 IN 0 C. MG TA B CL 00 02 03 6. 3 00 WA Ac IN 71 -0 -1 00 00 LG ti DA 35 7- 0- 0 04 RE ve MY 25 20 20 77 EN CI 60 17 17 14 S N 1 42 #0 HC 57 L 63 30 0 MG CA PS UL E IB 55 02 03 21 6 00 GR Ac UP 11 -0 -1 .0 00 AN ti RO 10 8- 0- 00 02 T ve FE 68 20 20 24 CO N 40 17 17 84 UN 80 [address] JOANA WASHBURN S, BL ET IN C. PA 52 02 03 47 30 00 GR Ac RO 37 -0 -1 3. 00 AN ti EX 60 8- 0- 00 02 T ve 02 20 20 0 24 CO 0. 10 17 17 84 UN 12 2 70 TY % OR DR ALCANTARA S, RI NS IN E C. QU 16 01 02 30 30 00 GR Ac ET 72 -0 -1 .0 00 AN ti IA 90 8- 0- 00 02 T ve PI 14 20 20 23 CO NE 80 17 17 77 UN [address] RA BERNARD TE S, 20 IN 0 C. MG TA B QU 16 12 01 30 30 00 GR Ac ET 72 -1 -1 .0 00 AN ti IA 90 2- 3- 00 02 T ve PI 14 20 20 23 CO NE 80 16 17 77 UN [address] RA BERNARD TE S, 20 IN 0 C. MG TA B Procedures Procedure [place] [address] [facility] FREE [address] [place] [address] THYROXINE [facility]ALTH[place] [address] [facility] THYROID [address] [place] [address] STIMULATI NG HEALTHCAR HEALTHCAR [place] [address] [facility] TRIIODOTH [address] [place] [address] YRONINE T3 FREE HEALTHCAR HEALTHCAR E EDGE E EDGE BLOOD 30828 [facility] COUNT [address] [place] [address] COMPLETE AUTOMATED HEALTHCAR HEALTHCAR E EDGE E EDGE COMPREHEN [address] [facility] SIVE [address] [place] [address] METABOLIC PANEL HEALTHCAR HEALTHCAR E EDGE E EDGE INJECTION J2250 [facility] HCL PER 1 MG INJECTION J2405 [facility] ON HCL PER 1 MG INJECTION J2765 [facility] AMIDE HCL UP TO 10 MG BLOOD 22996 [facility] COUNT 6 [facility] HOSP AUTOMATED ANESTHESI 21279 ANESTHESI DANYELL A VAGINAL 6 A GROUP PRACTICE PROCEDURE W/BIOPSY NOS COLLECTIO 40973 [facility] N VENOUS 6 [facility] [place] [address] [facility] SURG 6 [facility] PATHOLOGY [facility] HOSP GROSS&RUPINDER ROSCOPIC EXAM ANESTHESI 74221 [facility] A 6 [facility] INCOMPLET [facility] HOSP E/[place] [address] [facility] INCOMPLET 6 [facility] E [facility]OSP HOSP ANY TRIMESTER SURGICAL GONADOTRO 37472 [facility] PIN 6 [facility] [place] [address] [facility] UTERUS 6 [facility] REAL TIME [facility] HOSP W/IMAGE DCMTN TRANSVAG SBSQ 42936 [facility] OBSERVATI 6 [facility] ON [facility] HOSP CARE/DAY 15 MINUTES INJECTION J2210 [facility]P ONOVINE MALEATE UP TO 0.2 MG INJECTION J2590 [facility] OXYTOCIN 6 [facility] UP TO 10 HOSP HOSP UNITS INJECTION J2704 [facility] PROPOFOL 6 [facility] 10 MG HOSP HOSP INJECTION J3010 [facility] FENTANYL 6 [facility]OSP 0.1 MG SMR PRIM 43567 [facility] SRC WET 6 [facility] NFCT AGT IADNA 19066 [facility] CHLAMYDIA 6 [facility] TRACHOMAT IS AMPLIFIED PROBE TQ BLOOD 39372 [facility] TYPING 6 [facility] SEROLOGIC [facility] HOSP RH (D) GONADOTRO 23936 [facility] PIN 6 [facility] HOSP QUANTITAT [place] ANTIBODY 75183 [facility] SCREEN 6 [facility] RBC EACH HOSP HOSP SERUM TECHNIQUE BLOOD 58216 [facility] TYPING 6 [facility] SEROLOGIC [facility] HOSP ABO COLLECTIO 22212 [facility] N VENOUS 6 [facility] BLOOD [facility]OS[facility] HOSP VENIPUNCT URE IADNA 44645 [facility] NEISSERIA 6 [facility] HOSP HOSP GONORRHO[place] [address] [facility] LACTATE 6 [facility] [place] [place] [address] [facility] INFUSION 6 [facility] HYDRATION [facility] HOSP INITIAL 31 MIN-1 [place] [address] [facility] INFUSION 6 [facility] HYDRATION [facility]OS[facility] HOSP EACH ADDITIONA L HOUR BLOOD 92531 [facility] COUNT 6 [facility] COMPLETE [facility]OSP HOSP AUTO&AUTO DIFRNTL WBC CULTURE 65321 [facility] BACTERIAL 6 [facility] BLOOD HOSP HOSP AEROBIC W/ID ISOLATES BASIC 29489 [facility] METABOLIC 6 [facility] PANEL HOSP HOSP CALCIUM IONIZED URNLS DIP 08170 [facility] 6 [facility] STICK/TAB HOSP HOSP LET RGNT AUTO W/O MICROSCOP Y URINE 56875 [facility] 6 [facility] TEST HOSP HOSP VISUAL COLOR CMPRSN METHS INITIAL 67011 [facility] OBSERVATI 6 [facility] HOSP CARE/DAY 30 MINUTES INITIAL 17300 [facility] INPATIENT 6 CAT AMA CONSULT NEW/ESTAB PHYSICIAN [place] [address] [place] [address] RADIOLOGY PRETTY MCKEON GUIDANCE 6 NEEDLE ASSOCIATE PLACEMENT S OF [facility] BIOPSY RADIOLOGY PRETT[facility]ON MUSCLE 6 PERCUTANE ASSOCIATE OUS S OF [facility] NEEDLE SBSQ 42944 [facility] 6 CLINIC, CARE/DAY INC 15 MINUTES ECHO 63317 [facility] T[facility] R-T 6 CAT JEAN 2D W/WOM-MOD PHYSICIAN E COMPL S SPEC&COLR D INITIAL 14623 [facility] INPATIENT 6 CLINIC, CLINIC, CONSULT INC INC NEW/ESTAB PT 55 MIN MRI 21288 RADIOLOGY BILLY SCO SPINAL 6 CANAL ASSOCIATE LUMBAR S OF [facility] W/O & W/CONTR MATRL SEDIMENTA [address] TION RATE 6 CAT CAT RBC MED CTR MED CTR AUTOMATED FLOOR SUPERVISOR ST FLOOR SUPERVISOR ST COLLECTIO [address] N VENOUS 6 CAT CAT BLOOD MED CTR MED CTR VENIPUNCT FLOOR SUPERVISOR ST FLOOR SUPERVISOR ST URE C-REACTIV [address] E PROTEIN 6 CAT CAT MED CTR MED CTR FLOOR SUPERVISOR ST FLOOR SUPERVIS[address] HEPATIC [address] FUNCTION 6 CAT CAT PANEL MED CTR MED CTR FLOOR SUPERVISOR ST FLOOR SUPERVISOR [address] CULT[address] BACTERIAL 6 CAT CAT BLOOD MED CTR MED CTR AEROBIC FLOOR SUPERVISOR ST FLOOR SUPERVISOR ST W/ID ISOLATES BLOOD [address] COUNT 6 CAT CAT COMPLETE MED CTR MED CTR AUTOMATED FLOOR [place] [address] INFUSION 6 CAT CAT THERAPY/P MED CTR MED CTR ROPHYLAXI FLOOR SUPERVISOR ST FLOOR SUPERVISOR ST S /DX 1ST TO [address] IN[address] 6 CAT CAT DAPTOMYCI MED CTR MED CTR N [address] FLOOR SUPERVISOR ST INFUSION J7050 [address] ST NORMAL 6 CAT CAT SALINE MED CTR MED CTR SOLUTION FLOOR SUPERVISOR ST FLOOR SUPERVISOR ST [address] IN[address] 6 CAT CAT DAPTOMYCI MED CTR MED CTR N [address] [address] INFUSION 6 CAT CAT THERAPY/P MED CTR MED CTR ROPHYLAXI FLOOR SUPERVISOR ST FLOOR SUPERVISOR ST S /DX 1ST TO [address] NORMAL 6 CAT CAT SALINE MED CTR MED CTR SOLUTION FLOOR SUPERVISOR ST FLOOR SUPERVISOR ST [address] NORMAL 6 CAT CAT SALINE MED CTR MED CTR SOLUTION FLOOR SUPERVISOR ST FLOOR SUPERVISOR [address] [place] [address] INFUSION 6 CAT CAT THERAPY/P MED CTR MED CTR ROPHYLAXI FLOOR SUPERVISOR ST FLOOR SUPERVISOR ST S /DX 1ST TO [address] IN[address] 6 CAT CAT DAPTOMYCI MED CTR MED CTR N [address] FLOOR SUPERVISOR ST INFUSION J70[address] ST NORMAL 6 CAT CAT SALINE MED CTR MED CTR SOLUTION FLOOR SUPERVISOR ST FLOOR SU[address]VIS[address] [place] [address] INFUSION 6 CAT CAT THERAPY/P MED CTR MED CTR ROPHYLAXI FLOOR SUPERVISOR ST FLOOR SUPERVISOR ST S /DX 1ST TO [address] IN[address] 6 CAT CAT DAPTOMYCI MED CTR MED CTR N [address] FLOOR SUPERVISOR ST INJECTION J0[address] 6 CAT CAT DAPTOMYCI MED CTR MED CTR N [address] [address] INFUSION 6 CAT CAT THERAPY/P MED CTR MED CTR ROPHYLAXI FLOOR SUPERVISOR ST FLOOR SUPERVISOR ST S /DX 1ST TO [address] SIVE 6 CAT CAT METABOLIC MED CTR MED CTR PANEL FLOOR SUPERVISOR ST FLOOR SUPERVISOR ST BLOOD [address] COUNT 6 CAT CAT COMPLETE MED CTR MED CTR AUTO&AUTO FLOOR SUPERVISOR ST FLOOR SUPERVISOR ST DIFRNTL WBC INFUSION J7050 ST ST NORMAL 6 CAT CAT SALINE MED CTR MED CTR SOLUTION FLOOR SUPERVISOR ST FLOOR SUPERVISOR ST [address] TION RATE 6 CAT CAT RBC MED CTR MED CTR AUTOMATED FLOOR SUPERVISOR ST FLOOR SUPERVISOR ST CREATINE [address] KINASE 6 CAT CAT TOTAL MED CTR MED CTR FLOOR SUPERVISOR ST FLOOR SUPERVISOR ST C-REACTIV [address] E PROTEIN 6 CAT CAT MED CTR MED CTR FLOOR SUPERVISOR ST FLOOR SUPERVISOR ST COLLECTIO [address] N VENOUS 6 CAT CAT BLOOD MED CTR MED CTR VENIPUNCT FLOOR SUPERVISOR ST FLOOR SUPERVISOR ST URE INFUSION J7050 ST ST NORMAL 6 ACT CAT SALINE MED CTR MED CTR SOLUTION FLOOR SUPERVISOR ST FLOOR [address] INFUSION 6 CAT CAT THERAPY/P MED CTR MED CTR ROPHYLAXI FLOOR SUPERVISOR ST FLOOR SUPERVISOR ST S /DX 1ST TO [address] IN[address] 6 CAT CAT DAPTOMYCI MED CTR MED CTR N [address] [address] INFUSION 6 CAT CAT THERAPY/P MED CTR MED CTR ROPHYLAXI FLOOR SUPERVISOR ST FLOOR SUPERVISOR ST S /DX 1ST TO [address] [place] [address] INFUSION 6 CAT CAT THERAPY/P MED CTR MED CTR ROPHYLAXI FLOOR SUPERVISOR ST FLOOR SUPERVISOR ST S /DX 1ST TO [address] IN[address] 6 CAT CAT DAPTOMYCI MED CTR MED CTR N [address] FLOOR SUPERVISOR ST INFUSION J70[address] ST NORMAL 6 CAT CAT SALINE MED CTR MED CTR SOLUTION FLOOR SUPERVISOR ST FLOOR SUPERVISOR ST [address] NORMAL 6 CAT CAT SALINE MED CTR MED CTR SOLUTION FLOOR SUPERVISOR ST FLOOR SUPERVIS[address] INFUSION 6 CAT CAT THERAPY/P MED CTR MED CTR ROPHYLAXI FLOOR SUPERVISOR ST FLOOR SUPERVISOR ST S /DX 1ST TO [address] IN[address] 6 CAT CAT DAPTOMYCI MED CTR MED CTR N [address] [address] INFUSION 6 CAT CAT THERAPY/P MED CTR MED CTR ROPHYLAXI FLOOR SUPERVISOR ST FLOOR SUPERVISOR ST S /DX 1ST TO [address] METABOLIC 6 CAT CAT PANEL MED CTR MED CTR CALCIUM FLOOR SUPERVISOR ST FLOOR SUPERVISOR ST TOTAL BLOOD [address] COUNT 6 CAT CAT COMPLETE MED CTR MED CTR AUTO&AUTO FLOOR SUPERVISOR ST FLOOR SUPERVISOR ST DIFRNTL WBC C-REACTIV [address] E PROTEIN 6 CAT CAT MED CTR MED CTR FLOOR SUPERVISOR ST FLOOR SUPERVISOR ST CREATINE [address] KINASE MB 6 CAT CAT FRACTION MED CTR MED CTR ONLY FLOOR SUPERVISOR ST FLOOR SUPERVISOR ST INJECTION J0878 ST ST 6 CAT CAT DAPTOMYCI MED CTR MED CTR N [address] F[address] FLOOR SUPERVISOR ST INFUSION J7050 [address] ST NORMAL 6 CAT CAT SALINE MED CTR MED CTR SOLUTION FLOOR SUPERVISOR ST FLOOR SUPERVISOR ST [address] TION RATE 6 CAT CAT RBC MED CTR MED CTR AUTOMATED FLOOR SUPERVISOR ST FLOOR SUPERVISOR ST INFUSION J7050 ST ST NORMAL 6 CAT CAT SALINE MED CTR MED CTR SOLUTION FLOOR SUPERVISOR ST FLOOR SUPERVISOR ST [address] IN[address] 6 CAT CAT DAPTOMYCI MED CTR MED CTR N [address] [address] INFUSION 6 CAT CAT THERAPY/P MED CTR MED CTR ROPHYLAXI FLOOR SUPERVISOR ST FLOOR SUPERVISOR ST S /DX 1ST TO [address] [place] [address] INFUSION 6 CAT CAT THERAPY/P MED CTR MED CTR ROPHYLAXI FLOOR SUPERVISOR ST FLOOR SUPERVISOR ST S /DX 1ST TO [address] NORMAL 6 CAT CAT SALINE MED CTR MED CTR SOLUTION FLOOR SUPERVISOR ST FLOOR SUPERVISOR ST [address] IN[address] 6 CAT CAT DAPTOMYCI MED CTR MED CTR N [address] FLOOR SUPERVISOR ST INFUSION J70[address] ST NORMAL 6 CAT CAT SALINE MED CTR MED CTR SOLUTION FLOOR SUPERVISOR ST FLOOR SUPERVISOR [address] [place] [address] INFUSION 6 CAT CAT THERAPY/P MED CTR MED CTR ROPHYLAXI FLOOR SUPERVISOR ST FLOOR SUPERVISOR ST S /DX 1ST TO [address] IN[address] 6 CAT CAT DAPTOMYCI MED CTR MED CTR N [address] FLOOR SUPERVISOR ST INJECTION J0878 [address] ST 6 CAT CAT DAPTOMYCI MED CTR MED CTR N [address] F[address] FLOOR SUPERVISOR ST INFUSION J7050 ST ST NORMAL 6 CAT CAT SALINE MED CTR MED CTR SOLUTION FLOOR SUPERVISOR ST FLOOR SUPERVISOR [address] NORMAL 6 CAT CAT SALINE MED CTR MED CTR SOLUTION FLOOR SUPERVISOR ST FLOOR SUPERVISOR ST [address] IN[address] 6 CAT CAT DAPTOMYCI MED CTR MED CTR N [address] [address] INFUSION 6 CAT CAT THERAPY/P MED CTR MED CTR ROPHYLAXI FLOOR SUPERVISOR ST FLOOR SUPERVISOR ST S /DX 1ST TO [address] [place] [address] INFUSION 6 CAT CAT THERAPY/P MED CTR MED CTR ROPHYLAXI FLOOR SUPERVISOR ST FLOOR SUPERVISOR ST S /DX 1ST TO [address] NORMAL 6 CAT CAT SALINE MED CTR MED CTR SOLUTION FLOOR SUPERVISOR ST FLOOR SUPERVISOR ST [address] IN[address] 6 CAT CAT DAPTOMYCI MED CTR MED CTR N [address] FLOOR SUPERVISOR ST CREATINE [address] KINASE 6 CAT CAT TOTAL MED CTR MED CTR FLOOR SUPERVISOR ST FLOOR SUPERVISOR ST INFUSION J7050 ST ST NORMAL 6 CAT CAT SALINE MED CTR MED CTR SOLUTION FLOOR SUPERVISOR ST FLOOR SUPERVISOR [address] TION RATE 6 CAT CAT RBC MED CTR MED CTR AUTOMATED FLOOR SUPERVISOR ST FLOOR SUPERVISOR ST INJECTION J0878 ST ST 6 CAT CAT DAPTOMYCI MED CTR MED CTR N [address] FLOOR SUPERVISOR ST C-REACTIV [address] E PROTEIN 6 CAT CAT MED CTR MED CTR FLOOR SUPERVISOR ST FLOOR SUPERVISOR ST COLLECTIO [address] N VENOUS 6 CAT CAT BLOOD MED CTR MED CTR VENIPUNCT FLOOR SUPERVISOR ST FLOOR SUPERVISOR ST URE BASIC [address] METABOLIC 6 CAT CAT PANEL MED CTR MED CTR CALCIUM FLOOR SUPERVISOR [place] [address] INFUSION 6 CAT CAT THERAPY/P MED CTR MED CTR ROPHYLAXI FLOOR SUPERVISOR ST FLOOR SUPERVISOR ST S /DX 1ST TO [address] B[address] COUNT 6 CAT CAT COMPLETE MED CTR MED CTR AUTO&AUTO FLOOR SUPERVISOR ST F[place] [address] INFUSION 6 CAT CAT THERAPY/P MED CTR MED CTR ROPHYLAXI FLOOR SUPERVISOR ST FLOOR SUPERVISOR ST S /DX 1ST TO [address] NORMAL 6 CAT CAT SALINE MED CTR MED CTR SOLUTION FLOOR SUPERVISOR ST FLOOR SUPERVISOR ST [address] IN[address] 6 CAT CAT DAPTOMYCI MED CTR MED CTR N [address] FLOOR SUPERVISOR ST INJECTION J0878 [address] ST 6 CAT CAT DAPTOMYCI MED CTR MED CTR N [address]VISOR [address] FLOOR SUPERVISOR ST INFUSION J70[address] ST NORMAL 6 CAT CAT SALINE MED CTR MED CTR SOLUTION FLOOR SUPERVISOR ST FLOOR SU[address]VIS[address] [place] [address] INFUSION 6 CAT CAT THERAPY/P MED CTR MED CTR ROPHYLAXI FLOOR SUPERVISOR ST FLOOR SUPERVISOR ST S /DX 1ST TO [address] [place] [address] INFUSION 6 CAT CAT THERAPY/P MED CTR MED CTR ROPHYLAXI FLOOR SUPERVISOR ST FLOOR SUPERVISOR ST S /DX 1ST TO [address] NORMAL 6 CAT CAT SALINE MED CTR MED CTR SOLUTION FLOOR SUPERVISOR ST FLOOR SUPERVIS[address] 6 CAT [facility] N [address] FLOOR SUPERVISOR ST INJECTION J[address] 6 CAT CAT [facility] N [address] [address] INFUSION 6 CAT CAT THERAPY/P MED CTR MED CTR ROPHYLAXI FLOOR SUPERVISOR ST FLOOR SUPERVISOR ST S /DX 1ST TO [address] IN[address] NORMAL 6 CAT CAT SALINE MED CTR MED CTR SOLUTION FLOOR SUPERVISOR ST FLOOR SUPERVIS[address] NORMAL 6 CAT CAT SALINE MED CTR MED CTR SOLUTION FLOOR SUPERVISOR ST FLOOR SUPERVIS[address] [place] [address] INFUSION 6 CAT CAT THERAPY/P MED CTR MED CTR ROPHYLAXI FLOOR SUPERVISOR ST FLOOR SUPERVISOR ST S /DX 1ST TO [address] IN[address] 6 CAT CAT [facility] MED CTR N [address] FLOOR SUPERVISOR ST INJECTION J0878 [address] 6 CAT CAT DAP[facility] MED [facility] MED CTR N [address] [address] INFUSION 6 CAT CAT THERAPY/P MED CTR MED CTR ROPHYLAXI FLOOR SUPERVISOR ST FLOOR SUPERVISOR ST S /DX 1ST TO [address] IN[address] NORMAL 6 CAT CAT SALINE MED CTR MED CTR SOLUTION FLOOR SUPERVISOR ST FLOOR SUPERVISOR ST 250 CC SBSQ [id number] CARE/DAY 25 PHYSICIAN MINUTES S HOSP[facility] [id number] [facility] DISCHARGE [address] [place] [address] MANAGEMEN PHYSICIAN T > 30 S MIN SBSQ [id number] CARE/DAY 25 PHYSICIAN MINUTES S SBSQ [id number] CARE/DAY 35 PHYSICIAN MINUTES S [place] [id number] [facility]Y [place] [facility] MCKOY VENOUS ASSOCIATE ACCESS S OF [facility] DEV PLACEMENT FLUORO [id number] ST ST SUP VENA 6 [facility] CONTRST E EDGE E EDGE GUID INSERTION [id number] ST ST INFUSION 6 CAT CAT DEVC SUPERIOR HEALTHCAR HEALTHCAR VENA CAVA E EDGE E EDGE PERQ DOPPLER [id number] ST FAITH MARIYA ECHOCARD 6 CAT PULSE WAVE PHYSICIAN W/SPECTRA S L DISPLAY ANES [id number] ANESTHESI FAITH [place] NON-INVAS 6 A GROUP [facility] PRACTICE IMAGING/R ADIATION THERAPY [facility] [address] RADIOLOGY [place] ACCESS 6 MCKOY SITS VSL ASSOCIATE PATENCY S OF [facility] NDL ENTRY ECHO [id number] [facility] TRANSESOP 6 CAT HAG R-T 2D W/PRB PHYSICIAN IMG S ACQUISJ I&R DOP 21242 VIANNEY MARIYA ECHOCARD 6 CAT COLOR FLOW PHYSICIAN VELOCITY S MAPPING INSJ PRPH 42338 [facility] [place] CVC W/O 6 MCKOY SUBQ ASSOCIATE PORT/MOTTLER MACHINE FEEDER S OF NOTH AGE 5 YR/> ECHO 64988 [facility] TTHRC R-T 6 CAT [place] 2D W/WOM-MOD PHYSICIAN PHYSICIAN E COMPL S S SPEC&COLR D INITIAL 96357 [facility] INPATIENT 6 CAT CONSULT NEW/ESTAB PHYSICIAN PT 40 S MIN URNLS DIP 96290 [facility] STICK/TAB INC INC LET REAGENT AUTO MICROSCOP Y COMPREHEN 77227 [facility] SIVE 6 [facility] METABOLIC INC INC PANEL BLOOD 06036 [facility] COUNT 6 [facility] COMPLETE INC INC AUTO&[place] [address] [facility] INFUSION 6 [facility] THERAPY/P INC INC ROPHYLAXI S /DX 1ST TO 1 HR CULTURE 80793 [facility] BACTERIAL 6 [facility] INC INC QUANTTATI VE COLONY COUNT URINE CUL BACT 68699 [facility] XCPT 6 [facility] URINE INC INC BLOOD/[place] [address] [facility] STREPTOCO 6 [facility] CCUS INC INC GROUP A SKIN TEST 25563 [facility] 5 CAT TURCIOS TUBERCULO SIS PHYSICIAN [place] [address] [facility] A SURG 5 CAT HESS PATHOLOGY MED CTR GROSS&RUPINDER ROSCOPIC EXAM [place] PREG 75682 [facility] UTERUS 2 MATERNAL AND W/DETAIL MED MAGUI 1ST GESTATION 91692 [facility] BIOPHYSIC 2 MATERNAL AND AL PROFILE MED W/O NON-STRES S TESTING US PREG 73560 [facility] UTERUS 1 MATERNAL DON W/DETAIL ME MAGUI 1ST GESTATION Encounters Encounter Start End Date Code Location Performer Type Date [facility] ST - 7 7 CAT OUTPATIEN T [facility] EMER[facility] 69909 QUALIFIED POLICASTR DEPT 6 6 O RUPINDER VISIT EMERGENCY HIGH SPECIALI SEVERITY& THREAT FUN EMERGENCY 02358 [facility] 6 6 [facility] T VISIT HIGH/URGE NT SEVERITY [facility]OSP[facility] - 6 6 [facility] OUTPATIEN [facility] T EMERGENCY 05270 [facility] 6 6 [facility] DEPARTMEN INC T VISIT LIMITED/M INOR PROB EMERGENCY 71667 JEWELS LICONA 6 6 PHYSICIAN DEPARTMEN S, [facility] T VISIT HIGH/URGE NT SEVERITY [facility] - 6 6 [facility] OUTPATIEN INC T EMERGENCY 92514 [facility] DEPT 6 6 EMERGENCY GRE VISIT HIGH PHYSICIAN SEVERITY& S THREAT [facility] ST - 6 6 CAT OUTPATIEN MED CTR T [facility] ST - 6 6 CAT OUTPATIEN MED CTR T [facility] ST - 6 6 CAT OUTPATIEN MED CTR T [facility] ST - 6 6 CAT OUTPATIEN MED CTR T [facility] ST - 6 6 CAT OUTPATIEN MED CTR T [facility] - 6 6 CAT OUTPATIEN MED CTR T [facility] - 6 6 CAT OUTPATIEN MED CTR T [facility] - 6 6 CAT OUTPATIEN MED CTR T [facility] - 6 6 CAT OUTPATIEN MED CTR T [facility] - 6 6 CAT OUTPATIEN MED CTR T [facility] 24574 INFECTIOU YANI OUTPATIEN 6 6 S DISEASE AGNIESZKA T VISIT 15 [facility] - 6 6 CAT OUTPATIEN MED CTR T [facility] - 6 6 CAT OUTPATIEN MED CTR T [facility] - 6 6 CAT OUTPATIEN MED CTR T [facility] - 6 6 CAT OUTPATIEN MED CTR T [facility] - 6 6 CAT OUTPATIEN MED CTR T [facility] - 6 6 CAT OUTPATIEN MED CTR T [facility] - 6 6 CAT OUTPATIEN MED CTR T [facility] - 6 6 [facility] OUTPATIEN INC T EMERGENCY 16029 JEWELS PAULAEY 6 6 PHYSICIAN R[facility] [facility] T VISIT HIGH/URGE NT SEVERITY EMERGENCY 27658 [facility] 6 6 [facility] DEPARTMEN INC T VISIT LOW/MODER SEVERITY EMERGENCY 98340 JEWELS RENUSCH 6 6 PHYSICIAN [facility] T VISIT HIGH/URGE NT SEVERITY EMERGENCY 28723 JEWELS RENUSCH 6 6 PHYSICIAN [facility] [employer] [facility] T VISIT MODERATE SEVERITY HOSPITAL [facility] - 6 6 [facility] OUTPATIEN INC T EMERGENCY 25216 [facility] 6 6 [facility] DEPARTMEN INC T VISIT LOW/MODER SEVERITY
--- OUTSIDE RECORDS SUMMARY | 2017-04-08 06:11 | External Medical Summary Rpt ---
Author Author , LIBAN Moore LIBAN Address Unknown Phone [email or web address] [facility] D[facility] Care Team Providers Care Crane Rigger Name Role Phone [facility] Unavailable [facility], [facility] TOBY, TOBY Unavailable Unavailable PRETTY JAM, PRETTY JAM Unavailable Unavailable [facility] Unavailable Unavailable [facility]IC[facility], [facility] FAITH MARIYA, VIANNEY MARIYA Unavailable Unavailable FAITH CAROLA, FAITH CAROLA Unavailable Unavailable DANYELL, DANYELL Unavailable Unavailable DALE RUPINDER, DALE Unavailable Unavailable [facility], Unavailable Unavailable [facility] Unavailable Unavailable INC, [facility] HARTIG KAROLINA, HARTIG Unavailable Unavailable KAROLINA LYNCH AND, LYNCH Unavailable Unavailable AND HERNANDEZ LIVAN, HERNANDEZ LIVAN Unavailable Unavailable ANGELA MCKOY, ANGELA Unavailable Unavailable MCKOY LAMBERS DON, LAMBERS Unavailable Unavailable DON [facility], Unavailable Unavailable [facility], Unavailable Unavailable PLL[facility], [facility] LOMELI JOH, Unavailable Unavailable YANI AARON POLICASTRO RUPINDER, Unavailable Unavailable POLICASTRO RUPINDER [facility] Unavailable Unavailable [facility], [facility] Unavailable Unavailable [facility], [facility] RENIVÁN TURCIOS, RENUSCTed Unavailable Unavailable KAROLINA HESS, Unavailable Unavailable MARIA A HEA PATEL GUR, PATEL Unavailable Unavailable YAMILA NIEVES, Unavailable Unavailable SARAHI JOSHUA, JOSHUA Unavailable Unavailable [facility], Unavailable Unavailable [facility] Unavailable Unavailable CROZER OPERATOR , [facility] CROZER OPERATOR [facility] Unavailable Unavailable PHYSICIANS, [facility] [...] EDGE SPECIFIED R5381 OTHER 07-06-2016 [facility] MALAISE [facility] R5383 OTHER 07-06-2016 ST FATIGUE [facility] O031 DELAY/EXCES 04-23-2016 [facility]IA S [facility] FOLLOW PRACTICE INCMPL SPONT N939 ABNORMAL 04-22-2016 [facility] UTERINE & EMERGENCY VAGINAL SPECIALI BLEEDING UNSPECIFIED R102 PELVIC AND 04-22-2016 QUALIFIED PERINEAL EMERGENCY PAIN SPECIALI R7889 FINDING OTH 04-22-2016 QUALIFIED SPEC EMERGENCY SUBSTANCES SPECIALI NOT NORM FOUND BLOOD Z8614 PERSONAL HX 04-22-2016 [facility] R[facility]ST STAPH INFECTION Z880 ALLERGY 04-22-2016 [facility] Z882 ALLERGY 04-22-2016 [facility] S STATUS N898 OTHER 04-21-2016 [facility] SPECIFIED [facility], NONINFLAMMA PLLC TORY DISORDERS VAGINA O036 DELAY/EXCES 04-21-2016 [facility] FLW INC CMPL/UNS SPONT [id number] CARRIER/GERTRUDIS 04-21-2016 [facility] M[facility] RSIST STAPH Z720 TOBACCO USE 04-21-2016 [facility] R799 ABNORMAL 04-19-2016 ST FINDING [facility] BLOOD PHYSICIANS CHEMISTRY UNSPECIFIED M1288 OTHER 04-18-2016 [facility] ARTHROPATHI ES NEC OTHER SPEC SITE M609 MYOSITIS 04-18-2016 [facility] UNSPECIFIED [facility] 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 INSUFFICIEN CY B1920 UNS VIRAL 04-15-2016 [facility] WITHOUT PHYSICIANS HEPATIC COMA I330 ACUTE AND 04-15-2016 [facility] INFECTIVE PHYSICIANS ENDOCARDITI S M4650 OTHER 04-15-2016 [facility] SPONDYLOPAT PHYSICIANS HIES SITE UNSPECIFIED P33440 SPONDYLOSIS 04-15-2016 [facility] W/O ASSOC[facility]ATES MYELOPATH/R [facility] ADICULOPATH Y LUMB RGN R7881 BACTEREMIA 04-15-2016 [facility] B1710 ACUTE 03-27-2016 ST HEPATITIS C CAT WITHOUT MED CTR CROZER OPERATOR HEPATIC ST COMA O69706 OTHER LONG 02-29-2016 ST TERM CAT CURRENT MED CTR CROZER OPERATOR DRUG ST THERAPY A499 BACTERIAL 02-21-2016 ST INFECTION CAT UNSPECIFIED PHYSICIANS 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 INSUFFICIEN CY I38 ENDOCARDITI 02-15-2016 ANESTHESIA S VALVE GROUP UNSPECIFIED PRACTICE Z452 ENCOUNTER 02-15-2016 [facility]OLOG[facility] ADJUSTMENT& [facility] VASCULAR ACCESS DEVICE Z331 02-11-2016 [facility] INCIDENTAL PHYSICIANS A4102 SEPSIS D/T 02-10-2016 ST METHICILLIN CAT RSIST HEALTHCARE STAPH EDGE I2690 SEPTIC 02-10-2016 ST PULMONARY CAT EMBO W/O HEALTHCARE ACUTE COR EDGE PULMONALE L67931 PRE-EXISTIN 02-10-2016 ST G ESSENTIAL CAT HTN COMP HEALTHCARE PREG FIRST EDGE TRI B46627 OTH 02-10-2016 ST MATERNAL CAT INF & HEALTHCARE PARASIT DZ EDGE COMP PREG 1ST TRI L48827 DRUG USE 02-10-2016 ST COMPLICATIN CAT G [...] EXAMINATION CAT FOR PHYSICIANS PULMONARY TUBERCULOSI S 50151 TWIN 07-14-2014 [facility] UNSPECIFIED MED CTR TO EPISODE OF CARE 67126 OTH CURRENT 08-09-2011 [facility] MAT CONDS MATERNAL CLASSIFIABL MED E ELSW ANTPRTM 51437 DECR 08-09-2011 [facility] MOVMNTS MATERNAL MGMT MOTH MED ANTPRTM COND/COMP 43700 08-09-2011 [facility] DISTRESS MATERNAL AFFECT MED MANAGEMENT MOTH ANTEPARTUM V239 UNSPECIFIED 08-09-2011 [facility] HIGH-RISK MATERNAL MED 58611 UNS 04-17-2011 [facility] ABNORM MGMT MATERNAL MOTH [...] 20 IN 0 C. MG TA B OH 57 05 06 30 30 00 GR [...] HC 6 [address] BERNARD MG S, TA IN BL C. ET [...] [place] Code [place] [address] [facility] FREE [address] [place] [address] THYROXINE HEALTHCAR [place] [address] [facility] THYROID [address] [place] [address] STIMULATI NG HEALTHCAR HEALTHCAR [place] [address] [facility] TRIIODOTH [address] [place] [address] YRONINE T3 FREE HEALTHCAR HEALTHCAR E EDGE E EDGE BLOOD 22357 [facility] COUNT [address] [place] [address] COMPLETE AUTOMATED HEALTHCAR HEALTHCAR E EDGE E EDGE COMPREHEN 63878 [facility] SIVE [address] [place] [address] METABOLIC PANEL HEALTHCAR HEALTHCAR E EDGE E EDGE INJECTION J2250 [facility] HCL PER 1 MG INJECTION J2405 [facility] ON HCL PER 1 MG INJECTION J2765 [facility] AMIDE HCL UP TO 10 MG BLOOD 45344 [facility] COUNT 6 [facility]OS[facility] AUTOMATED ANESTHESI 38435 ANESTHESI DANYELL A VAGINAL 6 A GROUP PRACTICE PROCEDURE W/BIOPSY NOS COLLECTIO 86662 [facility] N VENOUS 6 [facility] [place] [address] [facility] SURG 6 [facility] PATH[facility] GROSS&RUPINDER ROSCOPIC EXAM ANESTHESI 36181 [facility] A 6 [facility]OSP E/[place] [address] [facility] INCOMPLET 6 [facility] E [facility] HOSP ANY TRIMESTER SURGICAL GONADOTRO 07862 [facility] PIN 6 [facility] [place] 25388 [facility] UTERUS 6 [facility] REAL TIME [facility] HOSP W/IMAGE DCMTN TRANSVAG SBSQ 39455 [facility] OBSERVATI 6 [facility] ON [facility] HOSP CARE/DAY 15 MINUTES INJECTION J2210 [facility]OSP ONOVINE MALEATE UP TO 0.2 MG INJECTION J2590 [facility] OXYTOCIN 6 [facility] UP TO 10 HOSP HOSP UNITS INJECTION J2704 [facility] PROPOFOL 6 [facility] 10 MG HOSP HOSP INJECTION J3010 [facility] FENTANYL 6 [facility]OSP 0.1 MG SMR PRIM 95967 [facility] SRC WET 6 [facility] NFCT AGT IADNA 37169 [facility] CHLAMYDIA 6 [facility] TRACHOMAT IS AMPLIFIED PROBE TQ BLOOD 97274 [facility] TYPING 6 [facility] SER[facility]IC [facility] RH (D) GONADOTRO 57361 [facility] PIN 6 [facility]OSP QUANTITAT [place] ANTIBODY 26464 [facility] SCREEN 6 [facility] RBC EACH [facility]OS[facility] HOSP SERUM TECHNIQUE BLOOD 70936 [facility] TYPING 6 [facility] SEROLOGIC [facility] HOSP ABO COLLECTIO 59098 [facility] N VENOUS 6 [facility] BLOOD [facility]OSP HOSP VENIPUNCT URE IADNA 16586 [facility] NEISSERIA 6 [facility] HOSP HOSP GONORRHOE [place] [address] [facility] LACTATE 6 [place] [address] [facility] INFUSION 6 [facility] HYDRATION [facility] HOSP INITIAL 31 MIN-1 [place] [address] [facility] INFUSION 6 [facility] HYDRATION [facility] HOSP EACH ADDITIONA L HOUR BLOOD 09168 [facility] COUNT 6 [facility] COMPLETE [facility] HOSP AUTO&AUTO DIFRNTL WBC CULTURE 03951 [facility] BACTERIAL 6 [facility] BLOOD [facility]OSP HOSP AEROBIC W/ID ISOLATES BASIC 59672 [facility] METABOLIC 6 [facility] PANEL HOSP HOSP CALCIUM IONIZED URNLS DIP 86987 [facility] STICK/TAB [facility] HOSP LET RGNT AUTO W/O MICROSCOP Y URINE 68382 [facility] 6 [facility] TEST HOSP HOSP VISUAL COLOR CMPRSN METHS INITIAL 00434 [facility] OBSERVATI 6 [facility] ON [facility] HOSP CARE/DAY 30 MINUTES INITIAL 20862 [facility] INPATIENT 6 CAT AMA CONSULT NEW/ESTAB PHYSICIAN [place] [address] [place] [address] RADIOLOGY PRETTY MCKEON GUIDANCE 6 NEEDLE ASSOCIATE PLACEMENT S [facility] BIOPSY RADIOLOGY PRETTY MCKEON MUSCLE 6 PERCUTANE ASSOCIATE OUS S [facility] NEEDLE SBSQ 49105 [facility] 6 CLINIC, CARE/DAY INC 15 MINUTES ECHO [address] 6 CAT JEAN 2D W/WOM-MOD PHYSICIAN E COMPL S SPEC&COLR D INITIAL 95988 [facility] INPATIENT 6 CLINIC, CLINIC, CONSULT INC INC NEW/ESTAB PT 55 MIN MRI 29027 RADIOLOGY BILLY SCO SPINAL 6 CANAL ASSOCIATE LUMBAR S [facility] W/O & W/CONTR MATRL SEDIMENTA [address] TION RATE 6 CAT CAT RBC MED CTR MED CTR AUTOMATED CROZER OPERATOR ST CROZER OPERATOR ST COLLECTIO [address] N VENOUS 6 CAT CAT BLOOD MED CTR MED CTR VENIPUNCT CROZER OPERATOR ST CROZER OPERATOR ST URE C-REACTIV [address] E PROTEIN 6 CAT CAT MED CTR MED CTR CROZER OPERATOR ST CROZER OPERATOR ST HEPATIC [address] FUNCTION 6 CAT CAT PANEL MED CTR MED CTR CROZER OPERATOR ST CROZER OPERATOR ST CULTURE [address] BACTERIAL 6 CAT CAT BLOOD MED CTR MED CTR AEROBIC CROZER OPERATOR ST CROZER OPERATOR ST W/ID ISOLATES BLOOD [address] COUNT 6 CAT CAT COMPLETE MED CTR MED CTR AUTOMATED CROZER [place] [address] INFUSION 6 CAT CAT THERAPY/P MED CTR MED CTR ROPHYLAXI CROZER OPERATOR ST CROZER OPERATOR ST S /DX 1ST TO [address] IN[address] 6 CAT CAT DAPTOMYCI MED CTR MED CTR N [address] CROZER OPERATOR ST INFUSION J7050 ST ST NORMAL 6 CAT CAT SALINE MED CTR MED CTR SOLUTION CROZER OPERATOR ST CROZER OPERATOR ST [address] IN[address] 6 CAT CAT DAPTOMYCI MED CTR MED CTR N [address] [place] [place] [address] INFUSION 6 CAT CAT THERAPY/P MED CTR MED CTR ROPHYLAXI CROZER OPERATOR ST CROZER OPERATOR ST S /DX 1ST TO [address] IN[address] NORMAL 6 CAT CAT SALINE MED CTR MED CTR SOLUTION CROZER OPERATOR ST CROZER OPERATOR ST [address] NORMAL 6 CAT CAT SALINE MED CTR MED CTR SOLUTION CROZER OPERATOR ST CROZER [address] INFUSION 6 CAT CAT THERAPY/P MED CTR MED CTR ROPHYLAXI CROZER OPERATOR ST CROZER OPERATOR ST S /DX 1ST TO [address] IN[address] 6 CAT CAT DAPTOMYCI MED CTR MED CTR N [address] CROZER OPERATOR ST INFUSION J70[address] ST ST NORMAL 6 CAT CAT SALINE MED CTR MED CTR SOLUTION CROZER OPERATOR ST CROZER [address] [place] [address] INFUSION 6 CAT CAT THERAPY/P MED CTR MED CTR ROPHYLAXI CROZER OPERATOR ST CROZER OPERATOR ST S /DX 1ST TO [address] IN[address] 6 CAT CAT DAPTOMYCI MED CTR MED CTR N [address] CROZER OPERATOR ST INJECTION J0[address] 6 CAT CAT DAPTOMYCI MED CTR MED CTR N [address] [place] [place] [address] INFUSION 6 CAT CAT THERAPY/P MED CTR MED CTR ROPHYLAXI CROZER OPERATOR ST CROZER OPERATOR ST S /DX 1ST TO [address] SIVE 6 CAT CAT METABOLIC MED CTR MED CTR PANEL CROZER OPERATOR ST CROZER OPERATOR ST BLOOD [address] COUNT 6 CAT CAT COMPLETE MED CTR MED CTR AUTO&AUTO CROZER OPERATOR ST CROZER OPERATOR ST DIFRNTL WBC INFUSION J7050 ST ST NORMAL 6 CAT CAT SALINE MED CTR MED CTR SOLUTION CROZER OPERATOR ST CROZER OPERATOR ST [address] TION RATE 6 CAT CAT RBC MED CTR MED CTR AUTOMATED CROZER OPERATOR ST CROZER OPERATOR ST CREATINE [address] KINASE 6 CAT CAT TOTAL MED CTR MED CTR CROZER OPERATOR ST CROZER OPERATOR ST C-REACTIV [address] E PROTEIN 6 CAT CAT MED CTR MED CTR CROZER OPERATOR ST CROZER OPERATOR ST COLLECTIO [address] N VENOUS 6 CAT CAT BLOOD MED CTR MED CTR VENIPUNCT CROZER OPERATOR ST CROZER OPERATOR ST URE INFUSION J7050 ST ST NORMAL 6 CAT CAT SALINE MED CTR MED CTR SOLUTION CROZER OPERATOR ST CROZER [address] [place] [address] INFUSION 6 CAT CAT THERAPY/P MED CTR MED CTR ROPHYLAXI CROZER OPERATOR ST CROZER OPERATOR ST S /DX 1ST TO [address] IN[address] 6 CAT CAT DAPTOMYCI MED CTR MED CTR N [address] [place] [place] [address] INFUSION 6 CAT CAT THERAPY/P MED CTR MED CTR ROPHYLAXI CROZER OPERATOR ST CROZER OPERATOR ST S /DX 1ST TO [address] [place] [address] INFUSION 6 CAT CAT THERAPY/P MED CTR MED CTR ROPHYLAXI CROZER OPERATOR ST CROZER OPERATOR ST S /DX 1ST TO [address] IN[address] 6 CAT CAT DAPTOMYCI MED CTR MED CTR N [address] CROZER OPERATOR ST INFUSION J70[address] ST NORMAL 6 CAT CAT SALINE MED CTR MED CTR SOLUTION CROZER OPERATOR ST CROZER OPER[address] NORMAL 6 CAT CAT SALINE MED CTR MED CTR SOLUTION CROZER OPERATOR ST CROZER [address] INFUSION 6 CAT CAT THERAPY/P MED CTR MED CTR ROPHYLAXI CROZER OPERATOR ST CROZER OPERATOR ST S /DX 1ST TO [address] IN[address] 6 CAT CAT DAPTOMYCI MED CTR MED CTR N [address] [place] [place] [address] INFUSION 6 CAT CAT THERAPY/P MED CTR MED CTR ROPHYLAXI CROZER OPERATOR ST CROZER OPERATOR ST S /DX 1ST TO [address] METABOLIC 6 CAT CAT PANEL MED CTR MED CTR CALCIUM CROZER OPERATOR ST CROZER OPERATOR ST TOTAL BLOOD [address] COUNT 6 CAT CAT COMPLETE MED CTR MED CTR AUTO&AUTO CROZER OPERATOR ST CROZER OPERATOR ST DIFRNTL WBC C-REACTIV [address] E PROTEIN 6 CAT CAT MED CTR MED CTR CROZER OPERATOR ST CROZER OPERATOR ST CREATINE [address] KINASE MB 6 CAT CAT FRACTION MED CTR MED CTR ONLY CROZER OPERATOR ST CROZER OPERATOR ST INJECTION J0878 ST ST 6 CAT CAT DAPTOMYCI MED CTR MED CTR N [address] CROZER OPERATOR ST INFUSION J70[address] ST ST NORMAL 6 CAT CAT SALINE MED CTR MED CTR SOLUTION CROZER OPERATOR ST CROZER OPER[address] TION RATE 6 CAT CAT RBC MED CTR MED CTR AUTOMATED CROZER OPERATOR ST CROZER OPERATOR ST INFUSION J7050 ST ST NORMAL 6 CAT CAT SALINE MED CTR MED CTR SOLUTION CROZER OPERATOR ST CROZER OPERATOR ST [address] IN[address] 6 CAT CAT DAPTOMYCI MED CTR MED CTR N [address] [place] [place] [address] INFUSION 6 CAT CAT THERAPY/P MED CTR MED CTR ROPHYLAXI CROZER OPERATOR ST CROZER OPERATOR ST S /DX 1ST TO [address] [place] [address] INFUSION 6 CAT CAT THERAPY/P MED CTR MED CTR ROPHYLAXI CROZER OPERATOR ST CROZER OPERATOR ST S /DX 1ST TO [address] IN[address] NORMAL 6 CAT CAT SALINE MED CTR MED CTR SOLUTION CROZER OPERATOR ST CROZER OPERATOR ST [address] IN[address] 6 CAT CAT DAPTOMYCI MED CTR MED CTR N [address] CROZER OPERATOR ST INFUSION J70[address] ST ST NORMAL 6 CAT CAT SALINE MED CTR MED CTR SOLUTION CROZER OPERATOR ST CROZER [address] [place] [address] INFUSION 6 CAT CAT THERAPY/P MED CTR MED CTR ROPHYLAXI CROZER OPERATOR ST CROZER OPERATOR ST S /DX 1ST TO [address] IN[address] 6 CAT CAT DAPTOMYCI MED CTR MED CTR N [address] CROZER OPERATOR ST INJECTION J0[address] ST 6 CAT CAT DAPTOMYCI MED CTR MED CTR N [address] CROZER OPERATOR ST INFUSION J[address] ST NORMAL 6 CAT CAT SALINE MED CTR MED CTR SOLUTION CROZER OPERATOR ST CROZER OPERATOR ST [address] NORMAL 6 CAT CAT SALINE MED CTR MED CTR SOLUTION CROZER OPERATOR ST CROZER OPERATOR ST [address] IN[address] 6 CAT CAT DAPTOMYCI MED CTR MED CTR N [address] [place] [place] [address] INFUSION 6 CAT CAT THERAPY/P MED CTR MED CTR ROPHYLAXI CROZER OPERATOR ST CROZER OPERATOR ST S /DX 1ST [place] [address] [place] [address] INFUSION 6 CAT CAT THERAPY/P MED CTR MED CTR ROPHYLAXI CROZER OPERATOR ST CROZER OPERATOR ST S /DX 1ST TO [address] IN[address] NORMAL 6 CAT CAT SALINE MED CTR MED CTR SOLUTION CROZER OPERATOR ST CROZER OPERATOR ST [address] IN[address] 6 CAT CAT DAPTOMYCI MED CTR MED CTR N [address] OPER[address] CROZER OPERATOR ST CREAT[address] KINASE 6 CAT CAT TOTAL MED CTR MED CTR CROZER OPERATOR ST CROZER OPERATOR ST INFUSION J7050 ST ST NORMAL 6 CAT CAT SALINE MED CTR MED CTR SOLUTION CROZER OPERATOR ST CROZER OPERATOR ST [address] TION RATE 6 CAT CAT RBC MED CTR MED CTR AUTOMATED CROZER OPERATOR ST CROZER OPERATOR ST INJECTION J0878 ST ST 6 CAT CAT DAPTOMYCI MED CTR MED CTR N [address] CROZER OPERATOR ST C-REACTIV [address] E PROTEIN 6 CAT CAT MED CTR MED CTR CROZER OPERATOR ST CROZER OPERATOR ST COLLECTIO [address] N VENOUS 6 CAT CAT BLOOD MED CTR MED CTR VENIPUNCT CROZER OPERATOR ST CROZER OPERATOR ST URE BASIC [address] METABOLIC 6 CAT CAT PANEL MED CTR MED CTR CALCIUM CROZER OPERATOR [place] [address] INFUSION 6 CAT CAT THERAPY/P MED CTR MED CTR ROPHYLAXI CROZER OPERATOR ST CROZER OPERATOR ST S /DX 1ST TO [address] COUNT 6 CAT CAT COMPLETE MED CTR MED CTR AUTO&AUTO CROZER OPERATOR ST CRO[place] [address] INFUSION 6 CAT CAT THERAPY/P MED CTR MED CTR ROPHYLAXI CROZER OPERATOR ST CROZER OPERATOR ST S /DX 1ST TO [address] NORMAL 6 CAT CAT SALINE MED CTR MED CTR SOLUTION CROZER OPERATOR ST CROZER OPERATOR ST [address] IN[address] 6 CAT CAT DAPTOMYCI MED CTR MED CTR N 1 [address] OPERATOR ST CROZER OPERATOR ST INJECTION J0[address] ST 6 CAT CAT DAPTOMYCI MED CTR MED CTR N 1 [address] OPER[address] CROZER OPERATOR ST INFUSION J70[address] ST NORMAL 6 CAT CAT SALINE MED CTR MED CTR SOLUTION CROZER OPERATOR ST CRO[address] INFUSION 6 CAT CAT THERAPY/P MED CTR MED CTR ROPHYLAXI CROZER OPERATOR ST CROZER OPERATOR ST S /DX 1ST [place] [address] [place] [address] INFUSION 6 CAT CAT THERAPY/P MED CTR MED CTR ROPHYLAXI CROZER OPERATOR ST CROZER OPERATOR ST S /DX 1ST TO [address] IN[address] NORMAL 6 CAT CAT SALINE MED CTR MED CTR SOLUTION CROZER OPERATOR ST CROZER OPERATOR ST [address] 6 CAT CAT DAPTOMYCI MED CTR MED CTR N [address] OPER[address] CROZER OPERATOR ST INJECTION J0[address] ST 6 CAT CAT DAPTOMYCI MED CTR MED CTR N [address] [place] [place] [address] INFUSION 6 CAT CAT THERAPY/P MED CTR MED CTR ROPHYLAXI CROZER OPERATOR ST CROZER OPERATOR ST S /DX 1ST TO [address] IN[address] NORMAL 6 CAT CAT SALINE MED CTR MED CTR SOLUTION CROZER OPERATOR ST CROZER OPERATOR ST [address] NORMAL 6 CAT CAT SALINE MED CTR MED CTR SOLUTION CROZER OPERATOR ST CROZER [address] [place] [address] INFUSION 6 CAT CAT THERAPY/P MED CTR MED CTR ROPHYLAXI CROZER OPERATOR ST CROZER OPERATOR ST S /DX 1ST TO [address] IN[address] 6 CAT CAT DAPTOMYCI MED CTR MED CTR N [address] OPER[address] CROZER OPERATOR ST INJECTION J0[address] 6 CAT CAT DAPTOMYCI MED CTR MED CTR N [address] [place] [place] [address] INFUSION 6 CAT CAT THERAPY/P MED CTR MED CTR ROPHYLAXI CROZER OPERATOR ST CROZER OPERATOR ST S /DX 1ST TO [address] IN[address] NORMAL 6 CAT CAT SALINE MED CTR MED CTR SOLUTION CROZER OPERATOR ST CROZER OPERATOR ST 250 CC SBSQ [id number] CARE/DAY 25 PHYSICIAN MINUTES S HOSPITAL [address] [facility] DISCHARGE [address] [place] [address] MANAGEMEN PHYSICIAN T > 30 S MIN SBSQ [id number] CARE/DAY 25 PHYSICIAN MINUTES S SBSQ [address] CARE/DAY 35 PHYSICIAN MINUTES S [place] [address] RADIOLOGY ARECIBO CENTRAL 6 MCKOY VENOUS ASSOCIATE ACCESS S [facility] DEV PLACEMENT FLUORO [id number] ST [facility] SUP VENA 6 [facility] CONTRST E EDGE E EDGE GUID INSERTION [id number] ST ST INFUSION 6 CAT CAT DEVC SUPERIOR HEALTHCAR HEALTHCAR VENA CAVA E EDGE E EDGE PERQ DOPPLER [address] ST FAITH MARIYA ECHOCARD 6 CAT PULSE WAVE PHYSICIAN W/SPECTRA S L DISPLAY ANES 81795 ANESTHESI FAITH CAROLA NON-INVAS 6 A GROUP [facility] IMAGING/R ADIATION THERAPY [facility] [address] RADIOLOGY ANGELA ACCESS 6 MCKOY SITS VSL ASSOCIATE PATENCY S [facility] NDL ENTRY ECHO [address] ST FAITH MARIYA TRANSESOP 6 CAT HAG R-T 2D W/PRB PHYSICIAN IMG S ACQUISJ I&R DOP 08488 VIANNEY MARIYA ECHOCARD 6 CAT COLOR FLOW PHYSICIAN VELOCITY S MAPPING INSJ PRPH 22699 RADIOLOGY ARECIBO CVC W/O 6 MCKOY SUBQ ASSOCIATE PORT/PRESCHOOL PROGRAM DIRECTOR S OF NOTH AGE 7 YR/> ECHO 74193 [facility] TTHRC R-T 6 CAT [place] 2D W/WOM-MOD PHYSICIAN PHYSICIAN E COMPL S S SPEC&COLR D INITIAL 05827 [facility] INPATIENT 6 CAT CONSULT NEW/ESTAB PHYSICIAN PT 40 S MIN URNLS DIP 49505 [facility] STICK/TAB INC INC LET REAGENT AUTO MICROSCOP Y COMPREHEN 22912 [facility] SIVE 6 [facility] METABOLIC INC INC PANEL BLOOD 40541 [facility] COUNT [facility] COMPLETE INC INC AUTO&[place] [address] [facility] INFUSION 6 [facility] THERAPY/P INC INC ROPHYLAXI S /DX 1ST TO 1 HR CULTURE 68102 [facility] BACTERIAL 6 [facility] INC INC QUANTTATI VE COLONY COUNT URINE CUL BACT 87992 [facility] XCPT 6 [facility] URINE INC INC BLOOD/[place] [address] [facility] STREPTOCO 6 [facility] CCUS INC INC GROUP A SKIN TEST 90825 [facility] CREST 5 CAT TURCIOS TUBERCULO SIS PHYSICIAN [place] [address] [facility] A SURG 5 CAT HESS PATHOLOGY MED CTR GROSS&RUPINDER ROSCOPIC EXAM [place] PREG 06966 [facility] UTERUS 2 MATERNAL AND W/DETAIL MED MAGUI 1ST GESTATION 59281 [facility] BIOPHYSIC 2 MATERNAL AND AL PROFILE MED W/O NON-STRES S TESTING US PREG 48666 [facility] UTERUS 1 MATERNAL DON W/DETAIL ME MAGUI 1ST GESTATION Encounters Encounter Start End Date Code Location Performer Type Date [facility] - 7 7 CAT [facility]IEN T [facility] 70069 QUALIFIED POLICASTR DEPT 6 6 O RUPINDER VISIT EMERGENCY HIGH SPECIALI SEVERITY& THREAT FUN EMERGENCY 17232 [facility] H[facility]/URGE NT SEVERITY [facility] - [facility] 69577 [facility] 6 6 [facility] DEPARTMEN INC T VISIT LIMITED/M INOR PROB EMERGENCY 65891 JEWELS LICONA 6 6 PHYSICIAN DEPARTMEN S, [facility] T VISIT HIGH/URGE NT SEVERITY [facility] - 6 6 [facility] OUTPATIEN INC T EMERGENCY 64621 [place] [facility] DEPT 6 6 EMERGENCY GRE VISIT HIGH PHYSICIAN SEVERITY& S THREAT [facility] - 6 6 CAT OUTPATIEN MED CTR T [facility] - 6 6 CAT OUTPATIEN MED CTR T [facility] - 6 6 CAT OUTPATIEN MED CTR T [facility] - 6 6 CAT OUTPATIEN MED CTR T [facility] - 6 6 CAT OUTPATIEN MED CTR T [facility] - 6 6 CAT OUTPATIEN MED CTR T [facility] - 6 6 CAT OUTPATIEN MED CTR T [facility] - 6 6 CAT OUTPATIEN MED CTR T [facility] - 6 6 CAT OUTPATIEN MED CTR T [facility] ST - 6 6 CAT OUTPATIEN MED CTR T [facility] [id number] INFECTIOU YANI OUTPATIEN 6 6 S DISEASE AGNIESZKA T VISIT [address] [facility] - 6 6 CAT OUTPATIEN [facility] T [facility] - 6 6 CAT OUTPATIEN [facility] T [facility] - 6 6 CAT OUTPATIEN [facility] - 6 6 CAT OUTPATIEN [facility] - 6 6 CAT OUTPATIEN [facility] - 6 6 CAT OUTPATIEN [facility] - 6 6 CAT OUTPATIEN [facility] - 6 6 [facility] OUTPATIEN INC T EMERGENCY [id number] JEWELS PAULAEY 6 6 PHYSICIAN [facility] [employer] T VISIT HIGH/URGE NT SEVERITY EMERGENCY [id number] [facility] 6 6 [facility] DEPARTMEN INC T VISIT LOW/MODER SEVERITY EMERGENCY [id number] JEWELS RENUSCH 6 6 PHYSICIAN [facility] [employer] T VISIT HIGH/URGE NT SEVERITY EMERGENCY [id number] JEWELS RENUSCH 6 6 PHYSICIAN [facility] [employer] T VISIT MODERATE SEVERITY [facility] - 6 6 [facility] OUTPATIEN INC T EMERGENCY [id number] [facility] 6 6 [facility] DEPARTMEN INC T VISIT LOW/MODER SEVERITY
--- OUTSIDE RECORDS SUMMARY | 2017-04-08 06:13 | External Medical Summary Rpt ---
Author Author , LIBAN Organization LIBAN Address Unknown Phone [email or web address] Care Team Providers Care Telephone Operators Supervisor Name Role Phone [facility] Unavailable Unavailable PR[facility]ICE, [facility] TOBY, TOBY Unavailable Unavailable PRETTY JAM, PRETTY JAM Unavailable Unavailable [facility] Unavailable Unavailable PHYSICIANS, [facility] VIANNEY MERAZ, VIANNEY MARIYA Unavailable Unavailable DANYELL, DANYELL Unavailable Unavailable DALE RUPINDER, DALE Unavailable Unavailable [facility], Unavailable Unavailable [facility] Unavailable Unavailable INC, [facility] HARTIG KAROLINA, HARTIG Unavailable Unavailable KAROLINA LYNCH AND, LYNCH Unavailable Unavailable AND HERNANDEZ LIVAN, HERNANDEZ LIVAN Unavailable Unavailable ANGELA MCKOY, ANGELA Unavailable Unavailable MCKOY LAMBERS DON, LAMBERS Unavailable Unavailable DON [facility], Unavailable Unavailable [facility], [facility], Unavailable Unavailable [facility], [facility] LOMELI JOH, Unavailable Unavailable LOMELI JOH POLICASTRO RUPINDER, Unavailable Unavailable POLICA[facility] RUPIND[facility] Unavailable Unavailable [facility], [facility] Unavailable Unavailable [facility], [facility] RENIVÁN TURCIOS, RENIVÁN Unavailable Unavailable KAROLINA AARON, JJ Unavailable Unavailable AGNIESZKA HESS, Unavailable Unavailable MARIA A HEArnold PATEL GUR, PATEL Unavailable Unavailable GUR SARAHI NIEVES, Unavailable Unavailable SARAHI JOSHUA, JOSHUA Unavailable Unavailable [facility] Unavailable Unavailable [facility], Unavailable Unavailable [facility] Unavailable Unavailable EXECUTIVE [facility] , [facility] Unavailable Unavailable PHYSICIANS, [facility] ZAID ARAUJO Unavailable Unavailable [facility] Un[facility] Un[facility], [facility] Unavailable Unavailable ME, [facility] BILLY SCO, BILLY SCO Unavailable Unavailable VON HOENE AMA, VON Unavailable Unavailable [facility] ZALKIND MIRANDA, ZALKIND Unavailable Unavailable MIRANDA Purpose Continuity of Care Document - 04-17-2011 through 2016 Problems Code Diagnosis DOS Provider Status N390 URINARY 07-06-2016 ST TRACT [facility] INFECTION HEALTHCARE SITE NOT EDGE SPECIFIED R5381 OTHER 07-06-2016 [facility] EDGE R5383 OTHER 07-06-2016 [facility] EDGE O031 DELAY/EXCES 04-23-2016 [facility]IA S [facility] FOLLOW PRACTICE INCMPL SPONT N939 ABNORMAL 04-22-2016 QUALIFIED UTERINE & EMERGENCY VAGINAL SPECIALI BLEEDING UNSPECIFIED R102 PELVIC AND 04-22-2016 QUALIFIED PERINEAL EMERGENCY PAIN SPECIALI R7889 FINDING OTH 04-22-2016 QUALIFIED SPEC EMERGENCY SUBSTANCES SPECIALI NOT NORM FOUND BLOOD Z8614 PERSONAL HX 04-22-2016 [facility] RSIST STAPH INFECTION Z880 ALLERGY 04-22-2016 [facility] Z882 ALLERGY 04-22-2016 [facility] STATUS N898 OTHER 04-21-2016 [facility], NONINFLAMMA PLLC TORY DISORDERS VAGINA O036 DELAY/EXCES 04-21-2016 [facility]W [facility] CMPL/UNS SPONT J07404 CARRIER/GERTRUDIS 04-21-2016 [facility] M[facility] RSIST STAPH Z720 TOBACCO USE 04-21-2016 [facility] R799 ABNORMAL 04-19-2016 ST FINDING OF CTA BLOOD PHYSICIANS CHEMISTRY UNSPECIFIED M1288 OTHER 04-18-2016 [facility] ARTHROPATHI ES NEC OTHER SPEC SITE M609 MYOSITIS 04-18-2016 RAD[facility] UNSPECIFIED ASSOCIATES OF NOT 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 INSUFFICIEN CY B1920 UNS VIRAL 04-15-2016 [facility] WITHOUT PHYSICIANS HEPATIC COMA I330 ACUTE AND 04-15-2016 [facility] SUBACUTE [facility] INFECTIVE PHYSICIANS ENDOCARDITI S M4650 OTHER 04-15-2016 [facility] SPONDYLOPAT PHYSICIANS HIES SITE UNSPECIFIED C37085 SPONDYLOSIS 04-15-2016 [facility] W/O ASSOC[facility]ATES MYELOPATH/R OF [facility] ADICULOPATH Y LUMB RGN R7881 BACTEREMIA 04-15-2016 [facility] B1710 ACUTE 03-27-2016 HEPATITIS C CAT WITHOUT MED CTR EXECUTIVE [facility]MAN OF THE BOARD HEPATIC ST COMA J04391 OTHER LONG 02-29-2016 ST TERM CAT CURRENT MED CTR EXECUTIVE CHAIRMAN OF THE BOARD DRUG ST THERAPY A499 BACTERIAL 02-21-2016 ST INFECTION CAT UNSPECIFIED PHYSICIANS 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 INSUFFICIEN CY I38 ENDOCARDITI 02-15-2016 ANESTHESIA S VALVE GROUP UNSPECIFIED PRACTICE Z452 ENCOUNTER 02-15-2016 RADIOLOGY ADJUSTMENT& ASSOCIATES [facility] VASCULAR ACCESS DEVICE Z331 02-11-2016 [facility] INCIDENTAL PHYSICIANS A4102 SEPSIS D/T 02-10-2016 ST METHICILLIN CAT RSIST HEALTHCARE STAPH EDGE I2690 SEPTIC 02-10-2016 ST PULMONARY CAT EMBO W/O HEALTHCARE ACUTE COR EDGE PULMONALE B21020 PRE-EXISTIN 02-10-2016 ST G ESSENTIAL CAT HTN COMP HEALTHCARE PREG FIRST EDGE TRI K12086 OTH 02-10-2016 ST MATERNAL CAT INF & HEALTHCARE PARASIT DZ EDGE COMP PREG 1ST TRI U59387 DRUG USE 02-10-2016 ST COMPLICATIN CAT G [...] EXAMINATION CAT FOR PHYSICIANS PULMONARY TUBERCULOSI S 93602 TWIN 07-14-2014 ST CAT UNSPECIFIED MED CTR TO EPISODE OF CARE 83809 OT CURRENT 08-09-2011 [facility] MAT CONDS MATERNAL CLASSIFIABL MED E ELSW ANTPRTM 68238 DECR 08-09-2011 [facility] MOVMNTS MATERNAL MGMT MOTH MED ANTPRTM COND/COMP 89122 08-09-2011 [facility] DISTRESS MATERNAL AFFECT MED MANAGEMENT MOTH ANTEPARTUM V239 UNSPECIFIED 08-09-2011 [facility] HIGH-RISK MATERNAL MED 49402 UNS 04-17-2011 [facility] ABNORM MGMT MATERNAL MOTH ME ANTPRTM COND/COMP Medications Na ND Rx Da Fi Fi [...] 20 IN 0 C. MG TA B UT 57 05 06 30 30 00 GR [...] HC [address] JOANA LIVINGSTON S, TA IN BL C. ET QU 16 04 05 30 30 00 GR Ac ET 72 -1 -1 .0 00 AN ti IA 90 7- 9- 00 02 T ve PI 14 20 20 24 CO NE 80 17 17 23 UN [address] RA JOANA SIFUENTES S, 20 IN 0 C. MG TA [...] 12 2 70 TY % OR DR AL UG S, RI NS IN E C. QU 16 01 02 30 30 00 GR Ac ET 72 -0 -1 .0 00 AN ti IA 90 8- 0- 00 02 T ve PI 14 20 20 23 CO NE 80 17 17 77 UN 1 57 TY FU PENNY SIFUENTES S, 20 IN 0 C. MG TA B QU 16 12 01 30 30 00 GR Ac ET 72 -1 -1 .0 00 AN ti IA 90 2- 3- 00 02 T ve PI 14 20 20 23 CO NE 80 16 17 77 UN 1 57 TY NAN SIFUENTES S, 20 IN 0 C. MG TA B Procedures Procedure [place] [address] [facility] TRIIODOTH 7 CAT CAT YRONINE T3 FREE HEALTHCAR HEALTHCAR E EDGE E EDGE BLOOD [address] [facility] COUNT 7 CAT CAT COMPLETE AUTOMATED HEALTH[place] [address] [facility] FREE 7 CAT CAT THYROXINE HEALTHCAR [place] [address] [facility] THYROID 7 CAT CAT STIMULATI NG HEALTHCAR HEALTHCAR HORMONE E EDGE E EDGE TSH COMPREHEN 98922 [facility] SIVE 7 CAT CAT METABOLIC PANEL [place] [address] [facility] SURG 6 [facility]IST SCIENTOLOGIST PATHOLOGY HOSP HOSP GROSS&RUPINDER ROSCOPIC EXAM ANESTHESI 36038 [facility] A 6 [facility]ENTOLOGIST SCI[facility]OLOG[facility] INCOMPLET HOSP HOSP E/MISSED INJECTION J2250 [facility] 6 [facility] HCL PER 1 MG ANESTHESI 84182 ANESTHESI DANYELL A VAGINAL 6 A GROUP PRACTICE PROCEDURE W/BIOPSY NOS COLLECTIO 43937 [facility] N VENOUS 6 [facility] BLOOD HOSP HOSP VENIPUNCT URE INJECTION J2704 [facility] PROPOFOL 6 SCIENTOLOGIST SCIENTOLOGIST 10 MG HOSP HOSP INJECTION J3010 [facility] FENTANYL 6 SCIENTOLOGIST [facility] HOSP 0.1 MG BLOOD 12779 [facility] COUNT 6 SCIENTOLOGIST SCIENTOLOGIST COMPLETE HOSP HOSP AUTOMATED GONADOTRO 02407 [facility] PIN 6 [facility]OLOGIST SCI[facility] [place] [address] [facility] INCOMPLET 6 [facility] E HOSP HOSP ANY TRIMESTER SURGICAL SBSQ 79560 [facility] OBSERVATI 6 [facility]IST SCIENTOLOGIST ON HOSP HOSP CARE/DAY 15 MINUTES US PREG 90628 [facility] UTERUS 6 [facility] REAL TIME HOSP HOSP W/IMAGE DCMTN TRANSVAG INJECTION J2210 [facility] 6 [facility]IST [facility] HOSP ONOVINE MALEATE UP TO 0.2 MG INJECTION J2590 [facility] OXYTOCIN 6 SCIENTOLOGIST SCIENTOLOGIST UP TO 10 HOSP HOSP UNITS INJECTION J2405 [facility] 6 [facility]OLOGIST [facility]OLOG[facility] HOSP ON HCL PER 1 MG INJECTION J2765 [facility] 6 [facility] METOCLOPR HOSP HOSP AMIDE HCL UP TO 10 MG GONADOTRO 45870 [facility] PIN 6 [facility]ENTOLOGIST SCIENTOLOGIST [facility]P HOSP QUANTITAT [place] BLOOD 93757 [facility] TYPING 6 [facility] SEROLOGIC HOSP HOSP RH (D) SMR PRIM 66235 [facility] SRC WET 6 [facility] MOUNT HOSP HOSP NFCT AGT IADNA 68314 [facility] CHLAMYDIA 6 [facility] HOSP HOSP TRACHOMAT IS AMPLIFIED PROBE TQ URINE 43672 [facility] 6 [facility] TEST HOSP HOSP VISUAL COLOR CMPRSN METHS BLOOD 92052 [facility] COUNT 6 [facility] COMPLETE HOSP HOSP AUTO&AUTO DIFRNTL WBC CULTURE 00488 [facility] BACTERIAL 6 [facility] BLOOD HOSP HOSP AEROBIC W/ID ISOLATES INITIAL 24889 [facility] OBSERVATI 6 [facility] SCIENTOLOGIST ON HOSP HOSP CARE/DAY 30 MINUTES BASIC 65116 [facility] METABOLIC 6 [facility] PANEL HOSP HOSP CALCIUM IONIZED COLLECTIO 04128 [facility] N VENOUS 6 [facility] [place] [address] [facility] INFUSION 6 [facility] HYDRATION HOSP HOSP INITIAL 31 MIN-[place] [address] [facility] INFUSION 6 [facility] HYDRATION HOSP HOSP EACH ADDITIONA L HOUR ANTIBODY 92731 [facility] SCREEN 6 [facility] SCIENTOLOGIST RBC EACH HOSP HOSP SERUM TECHNIQUE BLOOD 87428 [facility] TYPING 6 [facility] [place] [address] [facility] LACTATE 6 [facility] HOSP HOSP URNLS DIP 41823 [facility] 6 [facility] STICK/TAB HOSP HOSP LET RGNT AUTO W/O MICROSCOP Y IADNA 72258 [facility] NEISSERIA 6 [facility] HOSP HOSP GONORRHOE AE AMPLIFIED PROBE TQ INITIAL 84020 [facility] INPATIENT 6 CAT AMA CONSULT NEW/ESTAB PHYSICIAN PT 40 S MIN SBSQ 72814 [facility] 6 CLINIC, CARE/DAY [place] [address] [place] [address] [facility] PRETTY MCKEON GUIDANCE 6 NEEDLE ASSOCIATE PLACEMENT S OF [facility] BIOPSY 20196 [facility] MUSCLE 6 PERCUTANE ASSOCIATE OUS S OF [facility] NEEDLE ECHO [address] ST ZALKIND TTHRC R-T 6 CAT MIRANDA 2D W/WOM-MOD PHYSICIAN E COMPL S SPEC&COLR D INITIAL 33196 [facility] INPATIENT 6 CLINIC, CLINIC, CONSULT INC INC NEW/ESTAB PT 55 MIN MRI 61630 RADIOLOGY BILLY SCO SPINAL 6 CANAL ASSOCIATE LUMBAR S OF [facility] W/O & W/CONTR MATRL COLLECTIO [address] N VENOUS 6 CAT CAT BLOOD MED CTR MED CTR VENIPUNCT EXECUTIVE CHAIRMAN OF THE BOARD ST EXECUTIVE CHAIRMAN OF THE BOARD ST URE C-REACTIV [address] E PROTEIN 6 CAT CAT MED CTR MED CTR EXECUTIVE CHAIRMAN OF THE BOARD ST EXECUTIVE CHA[facility]MAN OF THE BOARD ST CULTURE [address] BACTERIAL 6 CAT CAT BLOOD MED CTR MED CTR AEROBIC EXECUTIVE CHAIRMAN OF THE BOARD ST EXECUTIVE CHAIRMAN OF THE BOARD ST W/ID ISOLATES BLOOD [address] COUNT 6 CAT CAT COMPLETE MED CTR MED CTR AUTOMATED EXECUTIVE CHAIRMAN OF THE BOARD ST EXECUTIVE CHAIRMAN OF THE BOARD ST HEPATIC [address] FUNCTION 6 CAT CAT PANEL MED CTR MED CTR EXECUTIVE CHAIRMAN OF THE BOARD ST EXECUTIVE CHAIRMAN OF THE BOARD ST SEDIM[address] TION RATE 6 CAT CAT RBC MED CTR MED CTR AUTOMATED EXECUTIVE CHAIRMAN OF THE BOARD ST EXECUTIVE [place] [address] INFUSION 6 CAT CAT THERAPY/P MED CTR MED CTR ROPHYLAXI EXECUTIVE CHAIRMAN OF THE BOARD ST EXECUTIVE CHAIRMAN OF THE BOARD ST S /DX 1ST TO [address] NORMAL 6 CAT CAT SALINE MED CTR MED CTR SOLUTION EXECUTIVE CHAIRMAN OF THE BOARD ST EXECUTIVE CHAIRMAN OF THE BOARD ST [address] 6 CAT CAT DAPTOMYCI MED CTR MED CTR N 1 MG EXECUTIVE CHAIRMAN OF THE BOARD ST EXECUTIVE CHAIRMAN OF THE BOARD ST INJECTION J0[address] ST 6 CAT CAT DAPTOMYCI MED CTR MED CTR N 1 MG EXECUTIVE CHAIRMAN OF THE BOARD ST EXECUTIVE CHAIRMAN OF THE BOARD ST INFUSION J[address] ST NORMAL 6 CAT CAT SALINE MED CTR MED CTR SOLUTION EXECUTIVE CHAIRMAN OF THE BOARD ST EXECUTIVE CHAIRMAN OF THE [address] INFUSION 6 CAT CAT THERAPY/P MED CTR MED CTR ROPHYLAXI EXECUTIVE CHAIRMAN OF THE BOARD ST EXECUTIVE CHAIRMAN OF THE BOARD ST S /DX 1ST [place] [address] [place] [address] INFUSION 6 CAT CAT THERAPY/P MED CTR MED CTR ROPHYLAXI EXECUTIVE CHAIRMAN OF THE BOARD ST EXECUTIVE CHAIRMAN OF THE BOARD ST S /DX 1ST TO [address] IN[address] NORMAL 6 CAT CAT SALINE MED CTR MED CTR SOLUTION EXECUTIVE CHAIRMAN OF THE BOARD ST EXECUTIVE CHAIRMAN OF THE BOARD ST [address] 6 CAT CAT DAPTOMYCI MED CTR MED CTR N 1 MG EXECUTIVE CHAIRMAN OF THE BOARD ST EXECUTIVE CHAIRMAN OF THE BOARD ST INFUSION J70[address] ST ST NORMAL 6 CAT CAT SALINE MED CTR MED CTR SOLUTION EXECUTIVE CHAIRMAN OF THE BOARD ST EXECUTIVE CHAIRMAN OF THE BOARD ST [address] 6 CAT CAT DAPTOMYCI MED CTR MED CTR N 1 MG EXECUTIVE CHAIRMAN OF THE BOARD ST EXECUTIVE [place] [address] INFUSION 6 CAT CAT THERAPY/P MED CTR MED CTR ROPHYLAXI EXECUTIVE CHAIRMAN OF THE BOARD ST EXECUTIVE CHAIRMAN OF THE BOARD ST S /DX 1ST TO [address] [place] [address] INFUSION 6 CAT CAT THERAPY/P MED CTR MED CTR ROPHYLAXI EXECUTIVE CHAIRMAN OF THE BOARD ST EXECUTIVE CHAIRMAN OF THE BOARD ST S /DX 1ST TO [address] COUNT 6 CAT CAT COMPLETE MED CTR MED CTR AUTO&AUTO EXECUTIVE CHAIRMAN OF THE BOARD ST EXECUTIVE CHAIRMAN OF THE BOARD ST DIFRNTL WBC SEDIMENTA [address] TION RATE 6 CAT CAT RBC MED CTR MED CTR AUTOMATED EXECUTIVE CHAIRMAN OF THE BOARD ST EXECUTIVE CHAIRMAN OF THE BOARD ST CREAT[address] KINASE 6 CAT CAT TOTAL MED CTR MED CTR EXECUTIVE CHAIRMAN OF THE BOARD ST EXECUTIVE CHAIRMAN OF THE BOARD ST C-REACTIV [address] E PROTEIN 6 CAT CAT MED CTR MED CTR EXECUTIVE CHAIRMAN OF THE BOARD ST EXECUTIVE CHAIRMAN OF THE BO[address] ST COMPREHEN [address] SIVE 6 CAT CAT METABOLIC MED CTR MED CTR PANEL EXECUTIVE CHAIRMAN OF THE BOARD ST EXECUTIVE CHAIRMAN OF THE BOARD ST COLLECTIO [address] N VENOUS 6 CAT CAT BLOOD MED CTR MED CTR VENIPUNCT EXECUTIVE CHAIRMAN OF THE BOARD ST EXECUTIVE CHAIRMAN OF THE BOARD ST URE INFUSION J7050 ST ST NORMAL 6 CAT CAT SALINE MED CTR MED CTR SOLUTION EXECUTIVE CHAIRMAN OF THE BOARD ST EXECUTIVE CHAIRMAN OF THE BOARD ST [address] 6 CAT CAT DAPTOMYCI MED CTR MED CTR N 1 MG EXECUTIVE CHAIRMAN OF THE BOARD ST EXECUTIVE CHAIRMAN OF THE BOARD ST INJECTION J0[address] 6 CAT CAT DAPTOMYCI MED CTR MED CTR N 1 MG EXECUTIVE CHAIRMAN OF THE BOARD ST EXECUTIVE CHAIRMAN OF THE BOARD ST INFUSION J70[address] ST NORMAL 6 CAT CAT SALINE MED CTR MED CTR SOLUTION EXECUTIVE CHAIRMAN OF THE BOARD ST EXECUTIVE CHAIRMAN OF THE [address] INFUSION 6 CAT CAT THERAPY/P MED CTR MED CTR ROPHYLAXI EXECUTIVE CHAIRMAN OF THE BOARD ST EXECUTIVE CHAIRMAN OF THE BOARD ST S /DX 1ST TO [address] INFUSION 6 CAT CAT THERAPY/P MED CTR MED CTR ROPHYLAXI EXECUTIVE CHAIRMAN OF THE BOARD ST EXECUTIVE CHAIRMAN OF THE BOARD ST S /DX 1ST [place] [address] [place] [address] INFUSION 6 CAT CAT THERAPY/P MED CTR MED CTR ROPHYLAXI EXECUTIVE CHAIRMAN OF THE BOARD ST EXECUTIVE CHAIRMAN OF THE BOARD ST S /DX 1ST TO [address] IN[address] NORMAL 6 CAT CAT SALINE MED CTR MED CTR SOLUTION EXECUTIVE CHAIRMAN OF THE BOARD ST EXECUTIVE CHAIRMAN OF THE BOARD ST [address] 6 CAT CAT DAPTOMYCI MED CTR MED CTR N 1 MG EXECUTIVE CHAIRMAN OF THE BOARD ST EXECUTIVE CHAIRMAN OF THE BOARD ST INJECTION J[address] 6 CAT CAT DAPTOMYCI MED CTR MED CTR N 1 MG EXECUTIVE CHAIRMAN OF THE BOARD ST EXECUTIVE CHAIRMAN OF THE BOARD ST INFUSION J[address] ST NORMAL 6 CAT CAT SALINE MED CTR MED CTR SOLUTION EXECUTIVE CHAIRMAN OF THE BOARD ST EXECUTIVE CHAIRMAN OF [address] INFUSION 6 CAT CAT THERAPY/P MED CTR MED CTR ROPHYLAXI EXECUTIVE CHAIRMAN OF THE BOARD ST EXECUTIVE CHAIRMAN OF THE BOARD ST S /DX 1ST TO [address] B[address] COUNT 6 CAT CAT COMPLETE MED CTR MED CTR AUTO&AUTO EXECUTIVE CHAIRMAN OF THE BOARD ST EXECUTIVE CHAIRMAN OF THE BOARD ST DIFRNTL WBC BASIC [address] METABOLIC 6 CAT CAT PANEL MED CTR MED CTR CALCIUM EXECUTIVE CHAIRMAN OF THE BOARD ST EXECUTIVE CHAIRMAN OF THE BOARD ST TOTAL SEDIMENTA [address] TION RATE 6 CAT CAT RBC MED CTR MED CTR AUTOMATED EXECUTIVE CHAIRMAN OF THE BOARD ST EXECUTIVE CHAIRMAN OF THE BOARD [address] CRE[address] KINASE MB 6 CAT CAT FRACTION MED CTR MED CTR ONLY EXECUTIVE CHAIRMAN OF THE BOARD [place] [address] INFUSION 6 CAT CAT THERAPY/P MED CTR MED CTR ROPHYLAXI EXECUTIVE CHAIRMAN OF THE BOARD ST EXECUTIVE CHAIRMAN OF THE BOARD ST S /DX 1ST TO 1 [place] C-[address]IV [address] E PROTEIN 6 CAT CAT MED CTR MED CTR EXECUTIVE CHAIRMAN OF THE BOARD ST EXECUTIVE CHAIRMAN OF THE BOARD ST INFUSION J7050 ST ST NORMAL 6 CAT CAT SALINE MED CTR MED CTR SOLUTION EXECUTIVE CHAIRMAN OF THE BOARD ST EXECUTIVE CHAIRMAN OF THE BOARD ST [address] 6 CAT CAT DAPTOMYCI MED CTR MED CTR N 1 MG EXECUTIVE CHAIRMAN OF THE BOARD ST EXECUTIVE CHAIRMAN OF THE BOARD ST INJECTION J[address] 6 CAT CAT DAPTOMYCI MED CTR MED CTR N 1 MG EXECUTIVE CHAIRMAN OF THE BOARD ST EXECUTIVE CHAIRMAN OF THE BOARD ST INFUSION J[address] ST ST NORMAL 6 CAT CAT SALINE MED CTR MED CTR SOLUTION EXECUTIVE CHAIRMAN OF THE BOARD ST EXECUTIVE CHAIRMAN OF [address] INFUSION 6 CAT CAT THERAPY/P MED CTR MED CTR ROPHYLAXI EXECUTIVE CHAIRMAN OF THE BOARD ST EXECUTIVE CHAIRMAN OF THE BOARD ST S /DX 1ST TO [address] IN[address] 6 CAT CAT DAPTOMYCI MED CTR MED CTR N 1 MG EXECUTIVE CHAIRMAN OF THE BOARD ST EXECUTIVE CHAIRMAN OF THE BOARD ST INFUSION J7050 ST ST NORMAL 6 CAT CAT SALINE MED CTR MED CTR SOLUTION EXECUTIVE CHAIRMAN OF THE BOARD ST EXECUTIVE CHAIRMAN OF THE [address] INFUSION 6 CAT CAT THERAPY/P MED CTR MED CTR ROPHYLAXI EXECUTIVE CHAIRMAN OF THE BOARD ST EXECUTIVE CHAIRMAN OF THE BOARD ST S /DX 1ST TO [address] [place] [address] INFUSION 6 CAT CAT THERAPY/P MED CTR MED CTR ROPHYLAXI EXECUTIVE CHAIRMAN OF THE BOARD ST EXECUTIVE CHAIRMAN OF THE BOARD ST S /DX 1ST TO [address] IN[address] NORMAL 6 CAT CAT SALINE MED CTR MED CTR SOLUTION EXECUTIVE CHAIRMAN OF THE BOARD ST EXECUTIVE CHAIRMAN OF THE BOARD ST [address] 6 CAT CAT DAPTOMYCI MED CTR MED CTR N 1 MG EXECUTIVE CHAIRMAN OF THE BOARD ST EXECUTIVE CHAIRMAN OF THE BOARD ST INFUSION J70[address] ST ST NORMAL 6 CAT CAT SALINE MED CTR MED CTR SOLUTION EXECUTIVE CHAIRMAN OF THE BOARD ST EXECUTIVE CHAIRMAN OF THE BOARD ST [address] 6 CAT CAT DAPTOMYCI MED CTR MED CTR N 1 MG EXECUTIVE CHAIRMAN OF THE BOARD ST EXECUTIVE CHAIRMAN OF THE BOARD ST INJECTION J[address] 6 CAT CAT DAPTOMYCI MED CTR MED CTR N 1 MG EXECUTIVE CHAIRMAN OF THE BOARD ST EXECUTIVE CHAIRMAN OF THE BOARD ST INFUSION J70[address] ST ST NORMAL 6 CAT CAT SALINE MED CTR MED CTR SOLUTION EXECUTIVE CHAIRMAN OF THE BOARD ST EXECUTIVE CHAIRMAN OF [address] INFUSION 6 CAT CAT THERAPY/P MED CTR MED CTR ROPHYLAXI EXECUTIVE CHAIRMAN OF THE BOARD ST EXECUTIVE CHAIRMAN OF THE BOARD ST S /DX 1ST TO [address] IN[address] 6 CAT CAT DAPTOMYCI MED CTR MED CTR N 1 MG EXECUTIVE CHAIRMAN OF THE BOARD ST EXECUTIVE CHAIRMAN OF THE BOARD ST INFUSION J7050 ST ST NORMAL 6 CAT CAT SALINE MED CTR MED CTR SOLUTION EXECUTIVE CHAIRMAN OF THE BOARD ST EXECUTIVE CHAIRMAN OF THE [address] INFUSION 6 CAT CAT THERAPY/P MED CTR MED CTR ROPHYLAXI EXECUTIVE CHAIRMAN OF THE BOARD ST EXECUTIVE CHAIRMAN OF THE BOARD ST S /DX 1ST [address] [place] [address] INFUSION 6 CAT CAT THERAPY/P MED CTR MED CTR ROPHYLAXI EXECUTIVE CHAIRMAN OF THE BOARD ST EXECUTIVE CHAIRMAN OF THE BOARD ST S /DX 1ST TO [address] B[address] COUNT 6 CAT CAT COMPLETE MED CTR MED CTR AUTO&AUTO EXECUTIVE CHAIRMAN OF THE BOARD ST EXECUTIVE CHAIRMAN OF THE BOARD ST DIFRNTL WBC SEDIMENTA [address] TION RATE 6 CAT CAT RBC MED CTR MED CTR AUTOMATED EXECUTIVE CHAIRMAN OF THE BOARD ST EXECUTIVE CHAIRMAN OF THE BOARD [address] BAS[address] METABOLIC 6 CAT CAT PANEL MED CTR MED CTR CALCIUM EXECUTIVE CHAIRMAN OF THE BOARD ST EXECUTIVE CHAIRMAN OF THE BOARD ST TOTAL CREATINE [address] KINASE 6 CAT CAT TOTAL MED CTR MED CTR EXECUTIVE CHAIRMAN OF THE BOARD ST EXECUTIVE CHAIRMAN OF THE BOARD ST INFUSION J7050 ST ST NORMAL 6 CAT CAT SALINE MED CTR MED CTR SOLUTION EXECUTIVE CHAIRMAN OF THE BOARD ST EXECUTIVE CHAIRMAN OF THE BOARD ST [address] N VENOUS 6 CAT CAT BLOOD MED CTR MED CTR VENIPUNCT EXECUTIVE CHAIRMAN OF THE BOARD ST EXECUTIVE CHAIRMAN OF THE BOARD ST URE C-REACTIV [address] E PROTEIN 6 CAT CAT MED CTR MED CTR EXECUTIVE CHAIRMAN OF THE BOARD ST EXECUTIVE CHAIRMAN OF THE BOARD ST INJECTION J[address] ST 6 CAT CAT DAPTOMYCI MED CTR MED CTR N 1 MG EXECUTIVE CHAIRMAN OF THE BOARD ST EXECUTIVE CHAIRMAN OF THE BOARD ST INJECTION J[address] 6 CAT CAT DAPTOMYCI MED CTR MED CTR N 1 MG EXECUTIVE CHAIRMAN OF THE BOARD ST EXECUTIVE CHAIRMAN OF THE BOARD ST INFUSION J[address] ST NORMAL 6 CAT CAT SALINE MED CTR MED CTR SOLUTION EXECUTIVE CHAIRMAN OF THE BOARD ST EXECUTIVE CHAIRMAN OF THE [address] INFUSION 6 CAT CAT THERAPY/P MED CTR MED CTR ROPHYLAXI EXECUTIVE CHAIRMAN OF THE BOARD ST EXECUTIVE CHAIRMAN OF THE BOARD ST S /DX 1ST TO [address] INFUSION 6 CAT CAT THERAPY/P MED CTR MED CTR ROPHYLAXI EXECUTIVE CHAIRMAN OF THE [facility] EXECUTIVE CHAIRMAN OF [facility] ST S /DX 1ST TO [id number] NORMAL 6 CAT CAT SALINE MED CTR MED CTR SOLUTION EXECUTIVE CHAIRMAN OF [facility] EXECUTIVE CHAIRMAN OF [facility] [id number] 6 CAT CAT DAPTOMYCI MED CTR MED CTR N 1 MG EXECUTIVE CHAIRMAN OF [facility] EXECUTIVE [facility]MAN OF [facility] ST INJECTION [id number] [address] 6 CAT CAT DAPTOMYCI MED CTR MED CTR N 1 MG EXECUTIVE CHAIRMAN OF THE [facility] EXECUTIVE [facility]AIRMAN OF [employer] [facility] INFUSION [id number] ST ST NORMAL 6 CAT CAT SALINE MED CTR MED CTR SOLUTION EXECUTIVE CHAIRMAN OF THE [facility] EXECUTIVE CHAIRMAN OF [employer] [address] [place] [id number] INFUSION 6 CAT CAT THERAPY/P MED CTR MED CTR ROPHYLAXI EXECUTIVE CHAIRMAN OF [facility] EXECUTIVE CHAIRMAN OF [facility] [address] S /DX 1ST TO [address] [place] [id number] INFUSION 6 CAT CAT THERAPY/P MED CTR MED CTR ROPHYLAXI EXECUTIVE CHAIRMAN OF [facility] EXECUTIVE CHAIRMAN OF [facility] ST S /DX 1ST TO [id number] NORMAL 6 CAT CAT SALINE MED CTR MED CTR SOLUTION EXECUTIVE CHAIRMAN OF [facility] EXECUTIVE CHAIRMAN [facility] [id number] 6 CAT CAT DAPTOMYCI MED CTR MED CTR N 1 MG EXECUTIVE CHAIRMAN [facility] EXECUTIVE CHAIRMAN [facility] [employer] [facility] [address] INJECTION [id number] 6 CAT CAT DAPTOMYCI MED CTR MED CTR N 1 MG EXECUTIVE CHAIRMAN OF THE [facility] EXECUTIVE CHA[facility]MAN OF [employer] [facility] INFUSION [id number] ST ST NORMAL 6 CAT CAT SALINE MED CTR MED CTR SOLUTION EXECUTIVE CHAIRMAN OF THE [facility] EXECUTIVE CHAIRMAN OF [employer] [place] [address] [place] [id number] INFUSION 6 CAT CAT THERAPY/P MED CTR MED CTR ROPHYLAXI EXECUTIVE CHAIRMAN OF [employer] [facility] [facility] EXECUTIVE CHAIRMAN OF [facility] ST S /DX 1ST TO [address] [place] [id number] INFUSION 6 CAT CAT THERAPY/P MED CTR MED CTR ROPHYLAXI EXECUTIVE CHAIRMAN OF [employer] [facility] [facility] EXECUTIVE CHAIRMAN OF THE [facility] ST S /DX 1ST TO [id number] NORMAL 6 CAT CAT SALINE MED CTR MED CTR SOLUTION EXECUTIVE [facility]MAN OF [facility] EXECUTIVE [facility]AIRMAN OF [facility] [id number] 6 CAT CAT DAPTOMYCI MED CTR MED CTR N 1 [facility] [employer] [employer] [facility] SBSQ [id number] CARE/DAY 25 PHYSICIAN MINUTES S HOSPITAL [address] [facility] DISCHARGE [address] [place] [address] MANAGEMEN PHYSICIAN T > 30 S MIN [facility] [address] CARE/DAY 25 PHYSICIAN MINUTES S [facility] [address] CARE/DAY 35 PHYSICIAN MINUTES S [place] [address]23 [facility] [place] CENTRAL 6 MCKOY VENOUS ASSOCIATE ACCESS S OF [facility] DEV PLACEMENT ANES 72124 ANESTHESI JJ NON-INVAS 6 A GROUP [facility] IMAGING/R ADIATION THERAPY DOPPLER [address] [facility] FA[facility] MARI[facility] ECHOCARD 6 CAT PULSE WAVE PHYSICIAN W/SPECTRA S L DISPLAY INSJ PRP 02848 [facility] [place] CVC W/O 6 MCKOY SUBQ ASSOCIATE PORT/BONDING EQUIPMENT OPERATOR S OF [facility] AGE 7 YR/> ECHO [address] [facility] TRANSESOP 6 CAT HAG R-T 2D W/PRB PHYSICIAN IMG S ACQUISJ I&R DOP [address] [facility] FA[facility] MARI[facility] ECHOCARD 6 [place] COLOR FLOW PHYSICIAN V[place]OC[place] 68921 [facility] [place] ACCESS 6 MCKOY SITS VSL ASSOCIATE PATENCY S OF [facility] NDL ENTRY FLUORO [id number] ST ST SUP VENA 6 CAT CAT CAVA LOW [facility] CONTRST E EDGE E EDGE GUID INSERTION [id number] ST ST INFUSION 6 CAT CAT DEVC [facility] VENA CAVA E EDGE E EDGE PERQ ECHO [address] [facility] R-T 6 CAT CAT 2D W/WOM-MOD PHYSICIAN PHYSICIAN E COMPL S S SPEC&COLR D INITIAL 72196 [facility] INPATIENT 6 CAT CONSULT NEW/ESTAB PHYSICIAN PT 40 S MIN CULTURE 72650 [facility] BACTERIAL 6 [facility] INC [place] [address] [facility] INFUSION 6 [facility] THERAPY/P INC INC ROPHYLAXI S /DX 1ST TO 1 HR BLOOD 73943 [facility] COUNT 6 [facility] COMPLETE INC INC AUTO&AUTO DIFRNTL WBC URNLS DIP 82841 [facility] STICK/TAB INC INC LET REAGENT AUTO MICROSCOP Y COMPREHEN 44450 [facility] SIVE 6 [facility] [address] [facility] STREPTOCO 6 [facility] CCUS INC INC GROUP A CUL BACT 37455 [facility] XCPT 6 [facility] URINE INC INC BLOOD/STO OL AEROBIC ISOL SKIN TEST 66811 [facility] 5 CAT TURCIOS TUBERCULO SIS PHYSICIAN [place]TRADERM [place] [address] [facility] SURG 5 CAT HESS PATHOLOGY MED CTR GROSS&RUPINDER ROSCOPIC EXAM 24288 [facility] BIOPHYSIC 2 MATERNAL AND AL PROFILE MED W/O NON-STRES S TESTING US PREG 29059 [facility] UTERUS 2 MATERNAL AND W/DETAIL MED MAGUI 1ST GESTATION US PREG 31516 [facility] UTERUS 1 MATERNAL DON W/DETAIL ME MAGUI 1ST GESTATION Encounters Encounter Start End Date Code Location Performer Type Date [facility] - 6 6 [facility] 09149 QUALIFIED POLICASTR DEPT 6 6 O RUPINDER VISIT EMERGENCY HIGH SPECIALI SEVERITY& THREAT FUN EMERGENCY 24634 [facility] 6 [facility]/URGE NT SEVERITY [facility] - 6 6 [facility] OUTPATIEN INC T EMERGENCY 98844 JEWELS MOJICAER LIVAN 6 6 PHYSICIAN DEPARTMEN [facility], [facility] T VISIT HIGH/URGE NT SEVERITY EMERGENCY 00521 [facility] 6 6 [facility] DEPARTMEN INC T VISIT LIMITED/M INOR PROB EMERGENCY 23690 [facility] DEPT 6 6 EMERGENCY GRE VISIT HIGH PHYSICIAN SEVERITY& S THREAT [facility] ST - 6 6 CAT OUTPATIEN MED CTR T [facility] - 6 6 CAT OUTPATIEN MED CTR T [facility] - 6 6 CAT OUTPATIEN MED CTR T [facility] - 6 6 CAT OUTPATIEN MED CTR T [facility] - 6 6 CAT OUTPATIEN MED CTR T [facility] - 6 6 CAT OUTPATIEN MED CTR T [facility] - 6 6 CAT OUTPATIEN MED CTR T [facility] - 6 6 CAT OUTPATIEN MED CTR T [facility] - 6 6 CAT OUTPATIEN MED CTR T [facility] ST - 6 6 CAT OUTPATIEN MED CTR T [facility] [address]4863 INFECTIOU LOMELI [facility] S DISEASE AGNIESZKA T VISIT [address] [facility] [address] - 6 6 CAT OUTPATIEN MED CTR T [facility] - 6 6 CAT OUTPATIEN MED CTR T [facility] - 6 6 CAT OUTPATIEN MED CTR T [facility] - 6 6 CAT OUTPATIEN MED CTR T [facility] - 6 6 CAT OUTPATIEN MED CTR T [facility] - 6 6 CAT OUTPATIEN MED CTR T [facility] - 6 6 CAT OUTPATIEN MED CTR T [facility] ST - 6 6 [facility] 16818 JEWELS HUNTER 6 6 PHYSICIAN RUPINDER [facility] T VISIT HIGH/URGE NT SEVERITY HOSPITAL [facility] - 6 6 [facility] OUTPATIEN INC T EMERGENCY 33681 [facility] 6 6 [facility] LOW/MODER SEVERITY EMERGENCY 99315 JEWELS GARCIA 6 6 PHYSICIAN YOHANA NAVARRETEC T VISIT HIGH/URGE NT SEVERITY HOSPITAL [facility] - 6 6 [facility] OUTPATIEN INC T EMERGENCY 21970 JEWELS GARCIA 6 6 YOHANA MOREC T VISIT MODERATE SEVERITY EMERGENCY 45539 [facility] 6 6 [facility] LOW/MODER SEVERITY
--- OUTSIDE RECORDS SUMMARY | 2017-04-08 06:13 | External Medical Summary Rpt ---
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 Role Phone [facility] Unavailable PR[facility], [facility] TOBY, TOBY Unavailable Unavailable PRETTY JAM, PRETTY JAM Unavailable Unavailable [facility] Unavailable Unavailable PHYSICIANS, [facility] VIANNEY MERAZ, VIANNEY MARIYA Unavailable Unavailable DANYELL, DANYELL Unavailable Unavailable DALE RUPINDER, DALE Unavailable Unavailable [facility], Unavailable Unavailable [facility] Unavailable Unavailable INC, [facility] HARTIG KAROLINA, HARTIG Unavailable Unavailable KAROLINA LYNCH AND, LYNCH Unavailable Unavailable AND HERNANDEZ LIVAN, HERNANDEZ LIVAN Unavailable Unavailable ANGELA MCKOY, ANGELA Unavailable Unavailable MCKOY LAMBERS DON, LAMBERS Unavailable Unavailable DON [facility], Unavailable Unavailable [facility], Unavailable Unavailable PLL[facility], [facility] LOMELI JOH, Unavailable Unavailable LOMELI JOH POLICASTRO RUPINDER, Unavailable Unavailable POLICASTRO RUPINDER [facility] Unavailable Unavailable [facility], [facility] Unavailable Unavailable [facility], [facility] RENIVÁN TURCIOS, RENIVÁN Unavailable Unavailable KAROLINA AARON, JJ Unavailable Unavailable AGNIESZKA HESS, Unavailable Unavailable MARIA A HEArnold PATEL GUR, PATEL Unavailable Unavailable GUR SARAHI NIEVES, Unavailable Unavailable SARAHI JOSHUA, JOSHUA Unavailable Unavailable [facility] Unavailable Unavailable [facility], Unavailable Unavailable [facility] Unavailable Unavailable CERTIFIED MEDICINE AIDE , [facility] CERTIFIED MEDICINE AIDE [facility] Unavailable Unavailable PHYSICIANS, [facility] ZAID [...] EDGE SPECIFIED R5381 OTHER 07-06-2016 [facility] MALAISE [facility] EDGE R5383 OTHER 07-06-2016 [facility] FATIGUE [facility] EDGE O031 DELAY/EXCES 04-23-2016 [facility]IA S [facility] FOLLOW PRACTICE INCMPL SPONT N939 ABNORMAL 04-22-2016 QUALIFIED UTERINE & EMERGENCY VAGINAL SPECIALI BLEEDING UNSPECIFIED R102 PELVIC AND 04-22-2016 QUALIFIED PERINEAL EMERGENCY PAIN SPECIALI R7889 FINDING OTH 04-22-2016 QUALIFIED SPEC EMERGENCY SUBSTANCES SPECIALI NOT NORM FOUND BLOOD Z8614 PERSONAL HX 04-22-2016 [facility] RSIST STAPH INFECTION Z880 ALLERGY 04-22-2016 [facility] Z882 ALLERGY 04-22-2016 [facility] S STATUS N898 OTHER 04-21-2016 [facility] SPECIFIED [facility], NONINFLAMMA PLLC TORY DISORDERS VAGINA O036 DELAY/EXCES 04-21-2016 [facility] FLW INC CMPL/UNS SPONT [id number] CARRIER/GERTRUDIS 04-21-2016 [facility] M[facility]IC[facility] RSIST STAPH Z720 TOBACCO USE 04-21-2016 [facility] R799 ABNORMAL 04-19-2016 ST FINDING OF [facility] BLOOD PHYSICIANS CHEMISTRY UNSPECIFIED M1288 OTHER 04-18-[address] 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 INSUFFICIEN CY B1920 UNS VIRAL 04-15-2016 [facility] C [facility]GENCY WITHOUT PHYSICIANS HEPATIC COMA I330 ACUTE AND 04-15-2016 [facility] SUBACUTE [facility] INFECTIVE PHYSICIANS ENDOCARDITI S M4650 OTHER 04-15-2016 [facility] SPONDYLOPAT PHYSICIANS HIES SITE UNSPECIFIED W26582 SPONDYLOSIS 04-15-2016 [facility] W/O ASSOCIATES MYELOPATH/R OF [facility] ADICULOPATH Y LUMB RGN R7881 BACTEREMIA 04-15-2016 [facility] PHYSICIANS B1710 ACUTE 03-27-2016 HEPATITIS C CAT WITHOUT MED CTR CERTIFIED MEDICINE AIDE HEPATIC ST COMA X81867 OTHER LONG 02-29-2016 ST TERM CAT CURRENT MED CTR CERTIFIED MEDICINE AIDE DRUG ST THERAPY A499 BACTERIAL 02-21-2016 ST INFECTION CAT UNSPECIFIED PHYSICIANS 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 INSUFFICIEN CY I38 ENDOCARDITI 02-15-2016 ANESTHESIA S VALVE GROUP UNSPECIFIED PRACTICE Z452 ENCOUNTER 02-15-2016 RADIOLOGY ADJUSTMENT& ASSOCIATES [facility] VASCULAR ACCESS DEVICE Z331 02-11-2016 [facility] STATE CAT INCIDENTAL PHYSICIANS A4102 SEPSIS D/T 02-10-2016 ST METHICILLIN CAT RSIST HEALTHCARE STAPH EDGE I2690 SEPTIC 02-10-2016 ST PULMONARY CAT EMBO W/O HEALTHCARE ACUTE COR EDGE PULMONALE B62285 PRE-EXISTIN 02-10-2016 ST G ESSENTIAL CAT HTN COMP HEALTHCARE PREG FIRST EDGE TRI R84671 OTH 02-10-2016 ST MATERNAL CAT INF & HEALTHCARE PARASIT DZ EDGE COMP PREG 1ST TRI L98772 DRUG USE 02-10-2016 ST COMPLICATIN CAT G [...] EXAMINATION CAT FOR PHYSICIANS PULMONARY TUBERCULOSI S 30374 TWIN 07-14-2014 ST [facility] UNSPECIFIED MED CTR TO EPISODE OF CARE 39626 OT CURRENT 08-09-2011 [facility] MAT CONDS MATERNAL CLASSIFIABL MED E ELSW ANTPRTM 15115 DECR 08-09-2011 [facility] MOVMNTS MATERNAL MGMT MOTH MED ANTPRTM COND/COMP 15505 08-09-2011 [facility] DISTRESS MATERNAL AFFECT MED MANAGEMENT MOTH ANTEPARTUM V239 UNSPECIFIED 08-09-2011 [facility] HIGH-RISK MATERNAL MED 90489 UNS 04-17-2011 [facility] ABNORM MGMT MATERNAL MOTH [...] 20 IN 0 C. MG TA B AL 57 05 06 30 30 00 GR [...] [place] [address] [facility] TRIIODOTH 7 CAT CAT YRONINE T3 FREE HEALTHCAR HEALTHCAR E EDGE E EDGE BLOOD 48514 [facility] COUNT 7 CAT CAT COMPLETE AUTOMATED HEALTHCAR [place] [address] [facility] FREE 7 CAT CAT THYROXINE HE[place] [address] [facility] THYROID 7 CAT CAT STIMULATI NG HEALTHCAR HEALTHCAR HORMONE E EDGE E EDGE TSH COMPREHEN 57163 [facility] SIVE 7 CAT CAT METABOLIC PANEL [facility] [address] [facility] SURG [facility] GROSS&RUPINDER ROSCOPIC EXAM ANESTHESI 54106 [facility] A 6 [facility]OSP E/MISSED INJECTION J2250 [facility] HCL PER 1 MG ANESTHESI 13943 ANESTHESI DANYELL A VAGINAL 6 A GROUP PRACTICE PROCEDURE W/BIOPSY NOS COLLECTIO 79502 [facility] N VENOUS 6 [facility] HOSP VENIPUNCT URE INJECTION J2704 [facility] PROPOFOL 6 [facility] 10 MG HOSP HOSP INJECTION J3010 [facility] FENTANYL 6 [facility] HOSP 0.1 MG BLOOD 92937 [facility] COUNT 6 [facility] COM[facility]TE [facility] HOSP AUTOMATED GONADOTRO 86230 [facility] PIN [facility] [place] [address] [facility] INCOMPLET 6 [facility] E [facility] HOSP ANY TRIMESTER SURGICAL SBSQ 01697 [facility] OBSERVATI 6 [facility] ON [facility] HOSP CARE/DAY 15 MINUTES US PREG 63021 [facility] UTERUS 6 [facility] REAL TIME [facility]OS[facility] HOSP W/IMAGE DCMTN TRANSVAG INJECTION J2210 [facility]P ONOVINE MALEATE UP TO 0.2 MG INJECTION J2590 [facility] OXYTOCIN 6 [facility] UP TO 10 HOSP HOSP UNITS INJECTION J2405 [facility] HOSP ON HCL PER 1 MG INJECTION J2765 [facility] 6 [facility] METOCLOPR [facility] HOSP AMIDE HCL UP TO 10 MG GONADOTRO 19917 [facility] PIN 6 [facility] HOSP QUANTITAT [place] BLOOD 84983 [facility] TYPING 6 [facility] SEROLOGIC [facility] HOSP RH (D) SMR PRIM 44905 [facility] SRC WET 6 [facility] M[facility] HOSP NFCT AGT IADNA 83264 [facility] CHLAMYDIA 6 [facility] HOSP HOSP TRACHOMAT IS AMPLIFIED PROBE TQ URINE 13151 [facility] 6 [facility] TEST HOSP HOSP VISUAL COLOR CMPRSN METHS BLOOD 46608 [facility] COUNT 6 [facility] COMPLETE HOSP HOSP AUTO&AUTO DIFRNTL WBC CULTURE 19520 [facility] BACTERIAL 6 [facility] BLOOD [facility]OSP HOSP AEROBIC W/ID ISOLATES INITIAL 15508 [facility] OBSERVATI 6 [facility]P CARE/DAY 30 MINUTES BASIC 08790 [facility] METABOLIC 6 [facility] PANEL HOSP HOSP CALCIUM IONIZED COLLECTIO 67354 [facility] N VENOUS 6 [facility] [place] [address] [facility] INFUSION 6 [facility] HYDRATION [facility]OS[facility] HOSP INITIAL 31 MIN-[place] [address] [facility] INFUSION 6 [facility] HYDRATION HOSP HOSP EACH ADDITIONA L HOUR ANTIBODY 37975 [facility] SCREEN 6 [facility] RBC EACH [facility]OSP HOSP SERUM TECHNIQUE BLOOD 39365 [facility] TYPING 6 [facility] [place] [address] [facility] LACTATE 6 [facility] HOSP HOSP URNLS DIP 15792 [facility] 6 [facility] STICK/TAB HOSP HOSP LET RGNT AUTO W/O MICROSCOP Y IADNA 59762 [facility] NEISSERIA 6 [facility] HOSP HOSP GONORRHOE AE AMPLIFIED PROBE TQ INITIAL 07919 [facility] INPATIENT 6 CAT AMA CONSULT NEW/ESTAB PHYSICIAN PT 40 S MIN SBSQ 11932 [facility] 6 CLINIC, CARE/DAY [place] [address] [place] [address] RADI[facility] PRETTY MCKEON GUIDANCE 6 NEEDLE ASSOCIATE PLACEMENT S OF [facility] BIOPSY 20196 [facility] MUSCLE 6 PERCUTANE ASSOCIATE OUS S OF [facility] NEEDLE ECHO [address]94 ST ZALKIND TTHRC R-T 6 CAT MIRANDA 2D W/WOM-MOD PHYSICIAN E COMPL S SPEC&COLR D INITIAL 00420 [facility] INPATIENT 6 CLINIC, CLINIC, CONSULT INC INC NEW/ESTAB PT 55 MIN MRI 35540 RADI[facility] BILLY SCO SPINAL 6 CANAL ASSOCIATE LUMBAR S OF [facility] W/O & W/CONTR MATRL COLLECTIO [address] N VENOUS 6 CAT CAT BLOOD MED CTR MED CTR VENIPUNCT CERTIFIED MEDICINE AIDE ST CERTIFIED MEDICINE AIDE ST URE C-REACTIV [address] E PROTEIN 6 CAT CAT MED CTR MED CTR CERTIFIED MEDICINE AIDE ST CERTIFIED MEDICINE AIDE ST CULTURE [address] BACTERIAL 6 CAT CAT BLOOD MED CTR MED CTR AEROBIC CERTIFIED MEDICINE AIDE ST CERTIFIED MEDICINE AIDE ST W/ID ISOLATES BLOOD [address] COUNT 6 CAT CAT COMPLETE MED CTR MED CTR AUTOMATED CERTIFIED MEDICINE AIDE ST CERTIFIED MEDICINE AIDE ST HEPATIC [address] FUNCTION 6 CAT CAT PANEL MED CTR MED CTR CERTIFIED MEDICINE AIDE ST CERTIFIED MEDICINE AIDE ST SEDIMENTA [address] TION RATE 6 CAT CAT RBC MED CTR MED CTR AUTOMATED CERTIFIED MEDICINE AIDE [place] [address] INFUSION 6 CAT CAT THERAPY/P MED CTR MED CTR ROPHYLAXI CERTIFIED MEDICINE AIDE ST CERTIFIED MEDICINE AIDE ST S /DX 1ST TO [address] NORMAL 6 CAT CAT SALINE MED CTR MED CTR SOLUTION CERTIFIED MEDICINE AIDE ST CERTIFIED MEDICINE AIDE ST [address] 6 CAT CAT DAPTOMYCI MED CTR MED CTR N 1 MG CERTIFIED MEDICINE AIDE ST CERTIFIED MEDICINE AIDE ST INJECTION J0878 ST ST 6 CAT CAT DAPTOMYCI MED CTR MED CTR N 1 MG CERTIFIED MEDICINE AIDE ST CERTIFIED MEDICINE AIDE ST INFUSION J7050 ST ST NORMAL 6 CAT CAT SALINE MED CTR MED CTR SOLUTION CERTIFIED MEDICINE AIDE ST CERTIFIED MEDICINE AIDE [address] INFUSION 6 CAT CAT THERAPY/P MED CTR MED CTR ROPHYLAXI CERTIFIED MEDICINE AIDE ST CERTIFIED MEDICINE AIDE ST S /DX 1ST [place] [address] [place] [address] INFUSION 6 CAT CAT THERAPY/P MED CTR MED CTR ROPHYLAXI CERTIFIED MEDICINE AIDE ST CERTIFIED MEDICINE AIDE ST S /DX 1ST TO [address] NORMAL 6 CAT CAT SALINE MED CTR MED CTR SOLUTION CERTIFIED MEDICINE AIDE ST CERTIFIED MEDICINE AIDE ST [address] 6 CAT CAT DAPTOMYCI MED CTR MED CTR N 1 MG CERTIFIED MEDICINE AIDE ST CERTIFIED MEDICINE AIDE ST INFUSION J7050 ST ST NORMAL 6 CAT CAT SALINE MED CTR MED CTR SOLUTION CERTIFIED MEDICINE AIDE ST CERTIFIED MEDICINE AIDE ST [address] 6 CAT CAT DAPTOMYCI MED CTR MED CTR N 1 MG CERTIFIED MEDICINE AIDE ST [place]ERT[place] [address] INFUSION 6 CAT CAT THERAPY/P MED CTR MED CTR ROPHYLAXI CERTIFIED MEDICINE AIDE ST CERTIFIED MEDICINE AIDE ST S /DX 1ST TO [address] [place] [address] INFUSION 6 CAT CAT THERAPY/P MED CTR MED CTR ROPHYLAXI CERTIFIED MEDICINE AIDE ST CERTIFIED MEDICINE AIDE ST S /DX 1ST TO [address] COUNT 6 CAT CAT COMPLETE MED CTR MED CTR AUTO&AUTO CERTIFIED MEDICINE AIDE ST CERTIFIED MEDICINE AIDE ST DIFRNTL WBC SEDIMENTA [address] TION RATE 6 CAT CAT RBC MED CTR MED CTR AUTOMATED CERTIFIED MEDICINE AIDE ST CERTIFIED MEDICINE AIDE ST CREATINE [address] KINASE 6 CAT CAT TOTAL MED CTR MED CTR CERTIFIED MEDICINE AIDE ST CERTIFIED MEDICINE AIDE ST C-REACTIV [address] E PROTEIN 6 CAT CAT MED CTR MED CTR CERTIFIED MEDICINE AIDE ST CERTIFIED MEDICINE AIDE ST COMPREHEN [address] SIVE 6 CAT CAT METABOLIC MED CTR MED CTR PANEL CERTIFIED MEDICINE AIDE ST CERTIFIED MEDICINE AIDE ST COLLECTIO [address] N VENOUS 6 CAT CAT BLOOD MED CTR MED CTR VENIPUNCT CERTIFIED MEDICINE AIDE ST CERTIFIED MEDICINE AIDE ST URE INFUSION J7050 ST ST NORMAL 6 CAT CAT SALINE MED CTR MED CTR SOLUTION CERTIFIED MEDICINE AIDE ST CERTIFIED MEDICINE AIDE ST [address] 6 CAT CAT DAPTOMYCI MED CTR MED CTR N 1 MG CERTIFIED MEDICINE AIDE ST CERTIFIED MEDICINE AIDE ST INJECTION J0878 ST ST 6 CAT CAT DAPTOMYCI MED CTR MED CTR N 1 MG CERTIFIED MEDICINE AIDE ST CERTIFIED MEDICINE AIDE ST INFUSION J7050 ST ST NORMAL 6 CAT CAT SALINE MED CTR MED CTR SOLUTION CERTIFIED MEDICINE AIDE ST CERTIFIED MEDICINE AIDE [address] [place] [address] INFUSION 6 CAT CAT THERAPY/P MED CTR MED CTR ROPHYLAXI CERTIFIED MEDICINE AIDE ST CERTIFIED MEDICINE AIDE ST S /DX 1ST [place] [address] [place] [address] INFUSION 6 CAT CAT THERAPY/P MED CTR MED CTR ROPHYLAXI CERTIFIED MEDICINE AIDE ST CERTIFIED MEDICINE AIDE ST S /DX 1ST TO [address] [place] [address] INFUSION 6 CAT CAT THERAPY/P MED CTR MED CTR ROPHYLAXI CERTIFIED MEDICINE AIDE ST CERTIFIED MEDICINE AIDE ST S /DX 1ST TO [address] NORMAL 6 CAT CAT SALINE MED CTR MED CTR SOLUTION CERTIFIED MEDICINE AIDE ST CERTIFIED MEDICINE AIDE ST [address] 6 CAT CAT DAPTOMYCI MED CTR MED CTR N 1 MG CERTIFIED MEDICINE AIDE ST CERTIFIED MEDICINE AIDE ST INJECTION J0878 ST ST 6 CAT CAT DAPTOMYCI MED CTR MED CTR N 1 MG CERTIFIED MEDICINE AIDE ST CERTIFIED MEDICINE AIDE ST INFUSION J7050 ST ST NORMAL 6 CAT ACT SALINE MED CTR MED CTR SOLUTION CERTIFIED MEDICINE AIDE ST CERTIFIED MEDICINE AIDE [address] [place] [address] INFUSION 6 CAT CTA THERAPY/P MED CTR MED CTR ROPHYLAXI CERTIFIED MEDICINE AIDE ST CERTIFIED MEDICINE AIDE ST S /DX 1ST TO [address] COUNT 6 CAT CAT COMPLETE MED CTR MED CTR AUTO&AUTO CERTIFIED MEDICINE AIDE ST CERTIFIED MEDICINE AIDE ST DIFRNTL WBC BASIC [address] METABOLIC 6 CAT CAT PANEL MED CTR MED CTR CALCIUM CERTIFIED MEDICINE AIDE ST CERTIFIED MEDICINE AIDE ST TOTAL SEDIMENTA [address] TION RATE 6 CAT CAT RBC MED CTR MED CTR AUTOMATED CERTIFIED MEDICINE AIDE ST CERTIFIED MEDICINE AIDE ST CREATINE [address] KINASE MB 6 CAT CAT FRACTION MED CTR MED CTR ONLY CERTIFIED MEDICINE AIDE [place] [address] INFUSION 6 CAT CAT THERAPY/P MED CTR MED CTR ROPHYLAXI CERTIFIED MEDICINE AIDE ST CERTIFIED MEDICINE AIDE ST S /DX 1ST TO 1 HR C-REACTIV [address] ST ST E PROTEIN 6 CAT CAT MED CTR MED CTR CERTIFIED MEDICINE AIDE ST CERTIFIED MEDICINE AIDE ST INFUSION J7050 ST ST NORMAL 6 CAT CAT SALINE MED CTR MED CTR SOLUTION CERTIFIED MEDICINE AIDE ST CERTIFIED MEDICINE AIDE ST [address] 6 CAT CAT DAPTOMYCI MED CTR MED CTR N 1 MG CERTIFIED MEDICINE AIDE ST CERTIFIED MEDICINE AIDE ST INJECTION J0878 ST ST 6 CAT CAT DAPTOMYCI MED CTR MED CTR N 1 MG CERTIFIED MEDICINE AIDE ST CERTIFIED MEDICINE AIDE ST INFUSION J7050 ST ST NORMAL 6 CAT CAT SALINE MED CTR MED CTR SOLUTION CERTIFIED MEDICINE AIDE ST CERTIFIED MEDICINE AIDE [place] [address] [place] [address] INFUSION 6 CAT CAT THERAPY/P MED CTR MED CTR ROPHYLAXI CERTIFIED MEDICINE AIDE ST CERTIFIED MEDICINE AIDE ST S /DX 1ST TO [address] 6 CAT CAT DAPTOMYCI MED CTR MED CTR N 1 MG CERTIFIED MEDICINE AIDE ST CERTIFIED MEDICINE AIDE ST INFUSION J7050 ST ST NORMAL 6 CAT CAT SALINE MED CTR MED CTR SOLUTION CERTIFIED MEDICINE AIDE ST CERTIFIED MEDICINE A[place] [address] [place] [address] INFUSION 6 CAT CAT THERAPY/P MED CTR MED CTR ROPHYLAXI CERTIFIED MEDICINE AIDE ST CERTIFIED MEDICINE AIDE ST S /DX 1ST TO [address] [place] [address] INFUSION 6 CAT CAT THERAPY/P MED CTR MED CTR ROPHYLAXI CERTIFIED MEDICINE AIDE ST CERTIFIED MEDICINE AIDE ST S /DX 1ST TO [address] NORMAL 6 CAT CAT SALINE MED CTR MED CTR SOLUTION CERTIFIED MEDICINE AIDE ST CERTIFIED MEDICINE AIDE ST [address] 6 CAT CAT DAPTOMYCI MED CTR MED CTR N 1 MG CERTIFIED MEDICINE AIDE ST CERTIFIED MEDICINE AIDE ST INFUSION J7050 ST ST NORMAL 6 CAT CAT SALINE MED CTR MED CTR SOLUTION CERTIFIED MEDICINE AIDE ST CERTIFIED MEDICINE AIDE ST [address] 6 CAT CAT DAPTOMYCI MED CTR MED CTR N 1 MG CERTIFIED MEDICINE AIDE ST CERTIFIED MEDICINE AIDE ST INJECTION J0[address] ST ST 6 CAT CAT DAPTOMYCI MED CTR MED CTR N 1 MG CERTIFIED MEDICINE AIDE ST CERTIFIED MEDICINE AIDE ST INFUSION J7050 ST ST NORMAL 6 CAT CAT SALINE MED CTR MED CTR SOLUTION CERTIFIED MEDICINE AIDE ST CERTIFIED MEDICINE AIDE [place] [address] [place] [address] INFUSION 6 CAT CAT THERAPY/P MED CTR MED CTR ROPHYLAXI CERTIFIED MEDICINE AIDE ST CERTIFIED MEDICINE AIDE ST S /DX 1ST TO [address] 6 CAT CAT DAPTOMYCI MED CTR MED CTR N 1 MG CERTIFIED MEDICINE AIDE ST CERTIFIED MEDICINE AIDE ST INFUSION J7050 ST ST NORMAL 6 CAT CAT SALINE MED CTR MED CTR SOLUTION CERTIFIED MEDICINE AIDE ST CERTIFIED MEDICINE AIDE [address] [place] [address] INFUSION 6 CAT CAT THERAPY/P MED CTR MED CTR ROPHYLAXI CERTIFIED MEDICINE AIDE ST CERTIFIED MEDICINE AIDE ST S /DX 1ST [place] [address] [place] [address] INFUSION 6 CAT CAT THERAPY/P MED CTR MED CTR ROPHYLAXI CERTIFIED MEDICINE AIDE ST CERTIFIED MEDICINE AIDE ST S /DX 1ST TO [address] COUNT 6 CAT CAT COMPLETE MED CTR MED CTR AUTO&AUTO CERTIFIED MEDICINE AIDE ST CERTIFIED MEDICINE AIDE ST DIFRNTL WBC SEDIMENTA [address] TION RATE 6 CAT CAT RBC MED CTR MED CTR AUTOMATED CERTIFIED MEDICINE AIDE ST CERTIFIED MEDICINE AIDE ST BASIC [address] METABOLIC 6 CAT CAT PANEL MED CTR MED CTR CALCIUM CERTIFIED MEDICINE AIDE ST CERTIFIED MEDICINE AIDE ST TOTAL CREATINE [address] KINASE 6 CAT CAT TOTAL MED CTR MED CTR CERTIFIED MEDICINE AIDE ST CERTIFIED MEDICINE AIDE ST INFUSION J7050 ST ST NORMAL 6 CAT CAT SALINE MED CTR MED CTR SOLUTION CERTIFIED MEDICINE AIDE ST CERTIFIED MEDICINE AIDE ST [address] N VENOUS 6 CAT CAT BLOOD MED CTR MED CTR VENIPUNCT CERTIFIED MEDICINE AIDE ST CERTIFIED MEDICINE AIDE ST URE C-REACTIV [address] ST [address] E PROTEIN 6 CAT CAT MED CTR MED CTR CERTIFIED MEDICINE AIDE ST CERTIFIED MEDICINE AIDE ST INJECTION J0878 ST ST 6 CAT CAT DAPTOMYCI MED CTR MED CTR N 1 MG CERTIFIED MEDICINE AIDE ST CERTIFIED MEDICINE AIDE ST INJECTION J0878 ST ST 6 CAT CAT DAPTOMYCI MED CTR MED CTR N 1 MG CERTIFIED MEDICINE AIDE ST CERTIFIED MEDICINE AIDE ST INFUSION J7050 ST ST NORMAL 6 CAT CAT SALINE MED CTR MED CTR SOLUTION CERTIFIED MEDICINE AIDE ST CERTIFIED MEDICINE AIDE [address] [place] [address] INFUSION 6 CAT CAT THERAPY/P MED CTR MED CTR ROPHYLAXI CERTIFIED MEDICINE AIDE ST CERTIFIED MEDICINE AIDE ST S /DX 1ST TO [address] [place] [address] INFUSION 6 CAT CAT THERAPY/P MED CTR MED CTR ROPHYLAXI CERTIFIED MEDICINE AIDE ST CERTIFIED MEDICINE AIDE ST S /DX 1ST TO [address] NORMAL 6 CAT CAT SALINE MED CTR MED CTR SOLUTION CERTIFIED MEDICINE AIDE ST CERTIFIED MEDICINE AIDE ST [address] 6 CAT CAT DAPTOMYCI MED CTR MED CTR N 1 MG CERTIFIED MEDICINE AIDE ST CERTIFIED MEDICINE AIDE ST INJECTION J0878 ST ST 6 CAT CAT DAPTOMYCI MED CTR MED CTR N 1 MG CERTIFIED MEDICINE AIDE ST CERTIFIED MEDICINE AIDE ST INFUSION J7050 ST ST NORMAL 6 CAT CAT SALINE MED CTR MED CTR SOLUTION CERTIFIED MEDICINE AIDE ST CERTIFIED MEDICINE AIDE [address] [place] [address] INFUSION 6 CAT CAT THERAPY/P MED CTR MED CTR ROPHYLAXI CERTIFIED MEDICINE AIDE ST CERTIFIED MEDICINE AIDE ST S /DX 1ST TO [address] [place] [address] INFUSION 6 CAT CAT THERAPY/P MED CTR MED CTR ROPHYLAXI CERTIFIED MEDICINE AIDE ST CERTIFIED MEDICINE AIDE ST S /DX 1ST TO [address] NORMAL 6 CAT CAT SALINE MED CTR MED CTR SOLUTION CERTIFIED MEDICINE AIDE ST CERTIFIED MEDICINE AIDE ST [address] 6 CAT CAT DAPTOMYCI MED CTR MED CTR N 1 MG CERTIFIED MEDICINE AIDE ST CERTIFIED MEDICINE AIDE ST INJECTION J0[address] ST ST 6 CAT CAT DAPTOMYCI MED CTR MED CTR N 1 MG CERTIFIED MEDICINE AIDE ST CERTIFIED MEDICINE AIDE ST INFUSION J7050 ST ST NORMAL 6 CAT CAT SALINE MED CTR MED CTR SOLUTION CERTIFIED MEDICINE AIDE ST CERTIFIED MEDICINE AIDE [address] [place] [address] INFUSION 6 CAT CAT THERAPY/P MED CTR MED CTR ROPHYLAXI CERTIFIED MEDICINE AIDE ST CERTIFIED MEDICINE AIDE ST S /DX 1ST TO [address] [place] [address] INFUSION 6 CAT CAT THERAPY/P MED CTR MED CTR ROPHYLAXI CERTIFIED MEDICINE AIDE ST CERTIFIED MEDICINE AIDE ST S /DX 1ST TO [address] NORMAL 6 CAT CAT SALINE MED CTR MED CTR SOLUTION CERTIFIED MEDICINE AIDE ST CERTIFIED MEDICINE AIDE ST [address] 6 CAT CAT DAPTOMYCI MED CTR MED CTR N 1 MG CERTIFIED MEDICINE AIDE ST CERTIFIED MEDICINE AIDE ST SBSQ [address] CARE/DAY 25 PHYSICIAN MINUTES S H[facility] [address] [facility] DISCHARGE [address] [place] [address] MANAGEMEN PHYSICIAN T > 30 S MIN [facility] [id number] CARE/DAY 25 PHYSICIAN MINUTES S [facility] [address] CARE/DAY 35 PHYSICIAN MINUTES S [place] [address] RADI[facility] CENTRAL 6 MCKOY VENOUS ASSOCIATE ACCESS S OF [facility] DEV PLACEMENT ANES 46701 ANESTHESI JJ NON-INVAS 6 A GROUP [facility] PRACT[facility] IMAGING/R ADIATION THERAPY DOPPLER [address] [facility] ECHOCARD 6 CAT PULSE WAVE PHYSICIAN W/SPECTRA [place] PRP [address]13 RADIOLOGY [facility] CVC W/O 6 MCKOY SUBQ ASSOCIATE PORT/CARE DIRECTOR S [facility] AGE 7 YR/> ECHO [address] [facility] TRANSESOP 6 CAT HAG R-T 2D W/PRB PHYSICIAN IMG S ACQUISJ I&R DOP 36378 [facility] ECHOCARD 6 NILES COLOR [place] [address] RADIOLOGY [facility] ACCESS 6 MCKOY SITS VSL ASSOCIATE PATENCY S OF [facility] NDL ENTRY FLUORO [id number] ST ST SUP VENA 6 CAT CAT CAVA LOW [facility] CONTRST E EDGE E EDGE GUID INSERTION [id number] ST ST INFUSION 6 CAT CAT DEVC [facility] VENA CAVA E EDGE E EDGE PERQ ECHO [address] [facility] R-T 6 CAT CAT 2D W/WOM-MOD PHYSICIAN PHYSICIAN E COMPL S S SPEC&COLR D INITIAL 11820 [facility] INPATIENT 6 CAT CONSULT NEW/ESTAB PHYSICIAN PT 40 S MIN CULTURE 42706 [facility] BACTERIAL 6 [facility] INC [place] [address] [facility] INFUSION 6 [facility] THERAPY/P INC INC ROPHYLAXI S /DX 1ST TO 1 HR BLOOD 82100 [facility] COUNT 6 [facility] COMPLETE INC INC AUTO&AUTO DIFRNTL WBC URNLS DIP 11993 [facility] STICK/TAB INC INC LET REAGENT AUTO MICROSCOP Y COMPREHEN 93653 [facility] SIVE 6 [facility] [address] [facility] STREPTOCO 6 [facility] CCUS INC INC GROUP A CUL BACT 13181 [facility] XCPT 6 [facility] URINE INC INC BLOOD/STO OL AEROBIC ISOL SKIN TEST 11838 [facility] 5 CAT TURCIOS TUBERCULO SIS PHYSICIAN INTRADERM S [place] LEVEL V [address] [facility] [place] SURG 5 CAT HESS PATHOLOGY MED CTR GROSS&RUPINDER ROSCOPIC EXAM 80018 [facility] BIOPHYSIC 2 MATERNAL AND AL PROFILE MED W/O NON-STRES S TESTING [place] PREG 76925 [facility] UTERUS 2 MATERNAL AND W/DETAIL MED MAGUI 1ST GESTATION [place] PREG 83351 [facility] UTERUS 1 MATERNAL DON W/DETAIL ME MAGUI 1ST GESTATION Encounters Encounter Start End Date Code Location Performer Type Date [facility] - 7 7 [facility] - 6 6 [facility] EMERGENCY [id number] QUALIFIED POLICASTR DEPT 6 6 O RUPINDER VISIT EMERGENCY HIGH SPECIALI SEVERITY& THREAT FUN EMERGENCY [id number] GOOD 6 [facility] H[facility]URGE NT SEVERITY [facility] - 6 6 [facility] OUTPATIEN INC T EMERGENCY 03059 JEWELS MOJICAER LIVAN 6 6 PHYSICIAN DEPARTMEN S, [facility] T VISIT HIGH/URGE NT SEVERITY EMERGENCY [id number] [facility] 6 6 [facility] DEPARTMEN INC T VISIT LIMITED/M INOR PROB EMERGENCY [id number] [place] [facility] DEPT 6 6 EMERGENCY GRE VISIT HIGH PHYSICIAN SEVERITY& S THREAT [facility] ST - 6 6 CAT OUTPATIEN MED CTR [facility] - 6 6 CAT OUTPATIEN MED CTR [facility] - 6 6 CAT OUTPATIEN MED CTR [facility] - 6 6 CAT OUTPATIEN MED CTR [facility] - 6 6 CAT OUTPATIEN MED CTR [facility] - 6 6 CAT OUTPATIEN MED CTR [facility] - 6 6 CAT OUTPATIEN MED CTR [facility] - 6 6 CAT OUTPATIEN MED CTR [facility] - 6 6 CAT OUTPATIEN MED CTR T [facility] - 6 6 CAT OUTPATIEN MED CTR [facility] 23238 INFECTIOU [facility]OM[facility] 6 S DISEASE AGNIESZKA T VISIT [facility] - 6 6 CAT OUTPATIEN MED CTR [facility] - 6 6 CAT OUTPATIEN MED CTR T [facility] - 6 6 CAT OUTPATIEN MED CTR [facility] - 6 6 CAT OUTPATIEN MED CTR T [facility] - 6 6 CAT OUTPATIEN MED CTR [facility] - 6 6 CAT OUTPATIEN MED CTR T [facility] - 6 6 CAT OUTPATIEN MED CTR T [facility] - 6 6 CAT [facility]GE EMERGENCY [id number] JEWELS HUNTER 6 6 PHYSICIAN [facility] [employer] T VISIT HIGH/URGE NT SEVERITY HOSPITAL [facility] - 6 6 [facility] OUTPATIEN INC T EMERGENCY [id number] [place] 6 6 [facility] LOW/MODER SEVERITY EMERGENCY 96486 JEWELS GARCIA 6 6 PHYSICIAN YOHANA NAVARRETEC T VISIT HIGH/URGE NT SEVERITY HOSPITAL [facility] - 6 6 [facility] OUTPATIEN INC T EMERGENCY 02938 JEWELS GARCIA 6 6 YOHANA MOREC T VISIT MODERATE SEVERITY EMERGENCY 52848 [place] 6 6 [facility] LOW/MODER SEVERITY
--- OUTSIDE RECORDS SUMMARY | 2017-04-08 06:14 | External Medical Summary Rpt ---
Author Author LIB[employer] Vaughn, LIBAN Vaughn Organization [employer] Address Unknown Phone Unavailable
--- OUTSIDE RECORDS SUMMARY | 2017-04-08 06:14 | External Medical Summary Rpt ---
Demographics Home Phone Preferred Language Greenlandic Marital Status Unknown Evangelical Affiliation Unknown Race Unknown Ethnic Group Unknown Author Author , LIBAN LOUIE Address Unknown Phone [email or web address] Support Name Relationship Address Phone [place], Next Of Kin Unknown Unavailable ARTHUR Immunization Name Date Rout CVX Reac Dose Comm Prov Is Faci e tion ent ider Refu lity Give sed n HepA 08-2 Intr 104 999 Hist 1005 No 1005 /B 3-20 amus oric 00 00 (TWI 16 cula al NRIX r Info ) rmat ion - Sour ce Unsp ecif ied TST- 08-2 Intr 96 999 Hist NM No NM PPD 0-20 ader oric intr 15 mal al ader Info mal rmat ion - Sour ce Unsp ecif ied
--- OUTSIDE RECORDS SUMMARY | 2017-04-08 06:14 | External Medical Summary Rpt ---
Demographics Home Phone Preferred Language Surinamese Marital Status Unknown Evangelical Affiliation Unknown Race Unknown Ethnic Group Unknown Author Author , LIBAN LOUIE Address Unknown Phone [email or web address] Support Name Relationship Address Phone [place], Next [...] ied TST- 08-2 Intr 96 999 Hist ID No ID PPD 0-20 ader oric intr 15 mal al ader Info mal rmat ion - Sour ce Unsp ecif ied
--- OUTSIDE RECORDS SUMMARY | 2017-04-08 06:34 | External Medical Summary Rpt ---
Author Author , LIBAN Moore LIBAN Address Unknown Phone [email or web address] Exam Prep Platform Care Team Providers Care Cisco Consultant Name Role Phone [facility] Un[facility], [facility] TOBY, TOBY Unavailable Unavailable PRETTY JAM, PRETTY JAM Unavailable Unavailable [facility] Unavailable Unavailable [facility]ANS, [facility] FAITHTye MERAZ, VIANNEY MERAZ Unavailable Unavailable DANYELL, DANYELL Unavailable Unavailable DALE RUPINDER, DALE Unavailable Unavailable RUPINDER [facility], Unavailable Unavailable [facility] Unavailable Unavailable INC, [facility] HARTIG KAROLINA, HARTIG Unavailable Unavailable KAROLINA [facility]YNCH [facility], LYNCH Unavailable Unavailable AND HERNANDEZ LIVAN, HERNANDEZ LIVAN Unavailable Unavailable ANGELA MCKOY, ANGELA Unavailable Unavailable MCKOY LAMBERS DON, LAMBERS Unavailable Unavailable DON [facility], Unavailable [facility]available [facility], Unavailable [facility]available [facility], [facility] LOMELI AGNIESZKA, Unavailable Unavailable LOMELI JOH POLICASTRO RUPINDER, Unavailable Unavailable POLICA[facility]O RUPINDER [facility] Unavailable Unavailable [facility], [facility] Unavailable Unavailable [facility], [facility] JOSE TURCIOS, JOSE Unavailable Unavailable KAROLINA AARON, JJ Unavailable Unavailable AGNIESZKA HESS, Unavailable Unavailable MARIA A HEArnold PATEL GUR, PATEL Unavailable Unavailable YAMILA NIEVES, Unavailable Unavailable SARAHI JOSHUA, JOSHUA Unavailable Unavailable [facility] Unavailable [facility], [facility]available Unavailable [facility] Unavailable Unavailable SALES DEVELOPMENT CONSULTANT , [facility] SALES DEVELOPMENT CONSULTANT [facility] Unavailable Unavailable [facility] ZAID FORDE, ZAID Unavailable Unavailable [facility] Un[facility] Un[facility], [facility] Unavailable Unavailable ME, [facility] BILLY SCO, BILLY SCO Unavailable Unavailable VON HOENE AMA, VON Unavailable Unavailable HO[facility] AMA TANISHA EDENKIND Unavailable Unavailable MIRANDA Purpose Continuity of Care Document - 04-17-2011 through 2016 Problems Code Diagnosis DOS Provider Status N390 URINARY 07-06-2016 ST TRACT [facility] INFECTION HEALTHCARE SITE NOT EDGE SPECIFIED R5381 OTHER 07-06-2016 [facility] R5383 OTHER 07-06-2016 [facility] O031 DELAY/EXCES 04-23-2016 [facility] S [facility] FOLLOW PRACTICE INCMPL SPONT N939 ABNORMAL 04-22-2016 [facility] UTERINE & EMERGENCY VAGINAL SPECIALI BLEEDING UNSPECIFIED R102 PELVIC AND 04-22-2016 QUALIFIED PERINEAL EMERGENCY PAIN SPECIALI R7889 FINDING OTH 04-22-2016 QUALIFIED SPEC EMERGENCY SUBSTANCES SPECIALI NOT NORM FOUND BLOOD Z8614 PERSONAL HX 04-22-2016 [facility] RSIST STAPH INFECTION Z880 ALLERGY 04-22-2016 [facility] Z882 ALLERGY 04-22-2016 [facility] STATUS N898 OTHER 04-21-2016 [facility], NONINFLAMMA PLLC TORY DISORDERS VAGINA O036 DELAY/EXCES 04-21-2016 [facility] CMPL/UNS SPONT [id number] CARRIER/GERTRUDIS 04-21-2016 [facility] METHIC[facility] RSIST STAPH Z720 TOBACCO USE 04-21-2016 [facility] R799 ABNORMAL 04-19-2016 ST FINDING OF CAT BLOOD PHYSICIANS CHEMISTRY UNSPECIFIED M1288 OTHER 04-18-2016 [facility] ARTHROPATHI ES NEC OTHER SPEC SITE M609 MYOSITIS 04-18-2016 [facility] UNSPECIFIED [facility] 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 INSUFFICIEN CY B1920 UNS VIRAL 04-15-2016 [facility] WITHOUT PHYSICIANS HEPATIC COMA I330 ACUTE AND 04-15-2016 [facility] INFECTIVE PHYSICIANS ENDOCARDITI S M4650 OTHER 04-15-2016 [facility] SPONDYLOPAT PHYSICIANS HIES SITE UNSPECIFIED T76438 SPONDYLOSIS 04-15-2016 [facility] W/O ASSOC[facility] MYELOPATH/R [facility] ADICULOPATH Y LUMB RGN R7881 BACTEREMIA 10-16-2016 [facility] B1710 ACUTE 03-27-2016 ST HEPATITIS C CAT WITHOUT MED CTR SALES DEVELOPMENT CONSULTANT HEPATIC ST COMA I00437 OTHER LONG 02-29-2016 ST TERM CAT CURRENT MED CTR SALES DEVELOPMENT CONSULTANT DRUG ST THERAPY A499 BACTERIAL 02-21-2016 ST INFECTION CAT UNSPECIFIED PHYSICIANS 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 INSUFFICIEN CY I38 ENDOCARDITI 02-15-2016 ANESTHESIA S VALVE GROUP UNSPECIFIED PRACTICE Z452 ENCOUNTER 02-15-2016 RADIOLOGY ADJUSTMENT& ASSOCIATES [facility] VASCULAR ACCESS DEVICE Z331 02-11-2016 ST STATE CAT INCIDENTAL PHYSICIANS A4102 SEPSIS D/T 02-10-2016 ST METHICILLIN CAT RSIST HEALTHCARE STAPH EDGE I2690 SEPTIC 02-10-2016 ST PULMONARY CAT EMBO W/O HEALTHCARE ACUTE COR EDGE PULMONALE K21644 PRE-EXISTIN 02-10-2016 ST G ESSENTIAL CAT HTN COMP HEALTHCARE PREG FIRST EDGE TRI M35996 OTH 02-10-2016 ST MATERNAL CAT INF & HEALTHCARE PARASIT DZ EDGE COMP PREG 1ST TRI V25782 DRUG USE 02-10-2016 ST COMPLICATIN CAT G [...] EXAMINATION CAT FOR PHYSICIANS PULMONARY TUBERCULOSI S 96221 TWIN 07-14-2014 ST CAT UNSPECIFIED MED CTR TO EPISODE OF CARE 59176 OT CURRENT 08-09-2011 [facility] MAT CONDS MATERNAL CLASSIFIABL MED E ELSW ANTPRTM 35062 DECR 08-09-2011 [facility] MOVMNTS MATERNAL MGMT MOTH MED ANTPRTM COND/COMP 02311 08-09-2011 [facility] DISTRESS MATERNAL AFFECT MED MANAGEMENT MOTH ANTEPARTUM V239 UNSPECIFIED 08-09-2011 [facility] HIGH-RISK MATERNAL MED 93060 UNS 04-17-2011 [facility] ABNORM MGMT MATERNAL MOTH ME ANTPRTM COND/COMP A41.01 Sepsis due to Methicillin susceptible Staphylococ cus aureus A41.9 Sepsis, unspecified organism B17.10 Acute hepatitis C without hepatic coma E86.0 Dehydration F11.20 Opioid dependence, uncomplicat ed F19.90 Other psychoactiv e substance use, unspecified , uncomplicat ed F31.31 Bipolar disorder, current episode depressed, mild G89.29 Other chronic pain I26.90 Septic pulmonary embolism without acute cor pulmonale I33.0 Acute and subacute infective endocarditi s L02.91 CUTANEOUS ABSCESS, UNSPECIFIED L03.211 CELLULITIS OF FACE M54.5 Low back pain N39.0 Urinary tract infection, site not specified N83.209 UNSPECIFIED OVARIAN CYST, UNSPECIFIED SIDE R00.0 TACHYCARDIA , UNSPECIFIED R10.9 UNSPECIFIED ABDOMINAL PAIN R53.81 Other malaise R53.83 Other fatigue R55 Syncope and collapse S01.81XA Laceration without foreign body of other part of head, initial encounter Z23 Encounter for immunizatio n Z33.1 state, incidental Z34.90 ENCNTR FOR SUPRVSN OF NORMAL , UNSP, UNSP TRIMESTER Z72.0 Tobacco use Z86.59 Personal history of other mental and behavioral disorders Z86.79 PERSONAL HISTORY OF OTHER DISEASES OF [...] 20 IN 0 C. MG TA B FL 57 05 06 30 30 00 GR Ac RT 66 -0 -0 .0 00 AN ti AZ 40 3- 2- 00 02 T ve AP 50 20 20 26 CO IN 01 17 17 48 UN E [address] LIVINGSTON UG S, TA BL IN ET C. BU [...] 80 [address] BERNARD TA S, BL ET IN C. PA 52 [...] 77 UN 1 57 TY FU PENNY BERNARD TE S, 20 IN 0 C. MG TA B QU 16 12 01 30 30 00 GR Ac ET 72 -1 -1 .0 00 AN ti IA 90 2- 3- 00 02 T ve PI 14 20 20 23 CO NE 80 16 17 77 UN 1 57 TY FU PENNY BERNARD TE S, 20 IN 0 C. MG TA B Procedures Procedure DOS Code Location Performer Comment COMPREHEN 618[address] [facility] 7 CAT CAT METABOLIC PANEL [facility] [address] [facility] TRIIODOTH 7 [facility] [place] YRONINE T3 FREE [facility]ALTHCAR HEALTHCAR E EDGE E EDGE BLOOD [address] COUNT 7 [facility] [place] COMPLETE AUTOMATED [facility] [address] FREE 7 CAT [place] THYROXINE [facility] [address] [facility] THYROID 7 CAT [place] STIMULATI NG HEALTHCAR HEALTHCAR HORMONE E EDGE E EDGE TSH COLLECTIO 92491 [facility] N VENOUS 6 [facility] BLOOD [facility]OSP HOSP VENIPUNCT URE INJECTION J2250 [facility] 6 [facility] HCL PER 1 MG ANESTHESI 14403 [facility] A 6 [facility] INCOMPLET HOSP HOSP E/MISSED US PREG 15620 [facility] UTERUS 6 [facility] REAL TIME HOSP HOSP W/IMAGE DCMTN TRANSVAG SBSQ 65860 [facility] OBSERVATI 6 [facility] ON HOSP HOSP CARE/DAY 15 MINUTES GONADOTRO 82644 [facility] PIN 6 [facility] [place] [address] [facility] INCOMPLET 6 [facility] E HOSP HOSP ANY TRIMESTER SURGICAL BLOOD 62009 [facility] COUNT 6 [facility] COMPLETE [facility]OSP HOSP AUTOMATED INJECTION J2704 [facility] PROPOFOL 6 [facility] 10 MG HOSP HOSP INJECTION J3010 [facility] FENTANYL 6 [facility]OSP 0.1 MG ANESTHESI 37222 ANESTHESI DANYELL A VAGINAL 6 A GROUP PRACTICE PROCEDURE W/[place] [address] [facility] SURG 6 [facility] PATHOLOGY HOSP HOSP GROSS&RUPINDER ROSCOPIC EXAM INJECTION J2210 [facility] 6 [facility] HOSP ONOVINE MALEATE UP TO 0.2 MG INJECTION J2590 [facility] OXYTOCIN 6 [facility] UP TO 10 HOSP HOSP UNITS INJECTION J2405 [facility] 6 [facility] OND[facility]R [facility]P HOSP ON HCL PER 1 MG INJECTION J2765 [facility] 6 [facility] METOCLOPR HOSP HOSP AMIDE HCL UP TO 10 MG GONADOTRO 21308 [facility] PIN 6 [facility] CHORIONIC [facility] HOSP QUANTITAT [place] URINE 65653 [facility] 6 [facility] TEST HOSP HOSP VISUAL COLOR CMPRSN METHS BLOOD 52597 [facility] TYPING 6 [facility] SEROLOGIC HOSP HOSP RH (D) SMR PRIM 36709 [facility] SRC WET 6 [facility] MOUNT HOSP HOSP NFCT AGT IADNA 56930 [facility] CHLAMYDIA 6 [facility] HOSP HOSP TRACHOMAT IS AMPLIFIED PROBE TQ ANTIBODY 11167 [facility] SCREEN 6 [facility] RBC EACH HOSP HOSP SERUM TECHNIQUE BLOOD 65595 [facility] TYPING 6 [facility] SEROLOGIC HOSP HOSP ABO IADNA 08018 [facility] NEISSERIA 6 [facility] HOSP HOSP GONORRHOE AE AMPLIFIED PROBE TQ URNLS DIP 84783 [facility] 6 [facility] STICK/TAB HOSP HOSP LET RGNT AUTO W/O MICROSCOP Y CULTURE 31036 [facility] BACTERIAL 6 [facility] BLOOD HOSP HOSP AEROBIC W/ID ISOLATES BLOOD 36172 [facility] COUNT 6 [facility] COMPLETE HOSP HOSP AUTO&AUTO DIFRNTL WBC BASIC 94288 [facility] METABOLIC 6 [facility] PANEL HOSP HOSP CALCIUM IONIZED INITIAL 26582 [facility] OBSERVATI 6 [facility] ON HOSP HOSP CARE/DAY 30 [place] [address] [facility] LACTATE 6 [facility] HOSP HOSP COLLECTIO 58322 [facility] N VENOUS 6 [facility] [place] [address] [facility] INFUSION 6 [facility] HYDRATION HOSP HOSP INITIAL 31 MIN-[place] [address] [facility] INFUSION 6 [facility] HYDRATION HOSP HOSP EACH ADDITIONA L HOUR INITIAL 967[address] [facility] [place] INPATIENT 6 CAT AMA CONSULT NEW/ESTAB PHYSICIAN PT [address] [place] [address] RAD[facility] PRETTY [facility] GUIDANCE 6 NEEDLE ASSOCIATE PLACEMENT S [facility] BIOPSY RADIOLOGY PRETT[facility] MUSCLE 6 PERCUTANE ASSOCIATE OUS S [facility] NEEDLE SBSQ 53580 [facility] 6 CLINIC, CARE/DAY INC [address]ES [address] ZALKIND TTHRC R-T 6 CAT MIRANDA 2D W/WOM-MOD PHYSICIAN E COMPL S SPEC&COLR D INITIAL 42285 [facility] INPATIENT 6 CLINIC, CLINIC, CONSULT INC INC NEW/ESTAB PT 55 MIN MRI 17447 RADIOLOGY BILLY SCO SPINAL 6 CANAL ASSOCIATE LUMBAR S [facility] W/O & W/CONTR MATRL C-REACTIV [address] E PROTEIN 6 [facility] MED CTR MED CTR SALES DEVELOPMENT CONSULTANT ST SALES DEVELOPMENT CONSULTANT ST CULTURE [address] BACTERIAL 6 CAT CAT BLOOD MED CTR MED CTR AEROBIC SALES DEVELOPMENT CONSULTANT ST SALES DEVELOPMENT CONSULTANT ST W/ID ISOLATES HEPATIC [address] FUNCTION 6 CAT CAT PANEL MED CTR MED CTR SALES DEVELOPMENT CONSULTANT ST SALES DEVELOPMENT CONSULTANT ST [address]LO[address] COUNT 6 CAT CAT COMPLETE MED CTR MED CTR AUTOMATED SALES DEVELOPMENT CONSULTANT ST SALES DEVELOPMENT CONSULTANT ST SEDIMENTA [address] TION RATE 6 CAT CAT RBC MED CTR MED CTR AUTOMATED SALES DEVELOPMENT CONSULTANT ST SALES DEVELOPMENT CONSULTANT ST COLLECTIO [address] N VENOUS 6 CAT CAT BLOOD MED CTR MED CTR VENIPUNCT SALES DEVELOPMENT CONSULTANT ST SAL[place] [address] INFUSION 6 CAT CAT THERAPY/P MED CTR MED CTR ROPHYLAXI SALES DEVELOPMENT CONSULTANT ST SALES DEVELOPMENT CONSULTANT ST S /DX 1ST TO [address] IN[address] NORMAL 6 CAT CAT SALINE MED CTR MED CTR SOLUTION SALES DEVELOPMENT CONSULTANT ST SALES DEVELOPMENT CONSULTANT ST [address] IN[address] 6 CAT CAT DAPTOMYCI MED CTR MED CTR N 1 MG SALES DEVELOPMENT CONSULTANT ST SALES DEVELOPMENT CONSULTANT ST INJECTION J0878 ST ST 6 CAT CAT DAPTOMYCI MED CTR MED CTR N 1 MG SALES DEVELOPMENT CONSULTANT ST SALES DEVELOPMENT CONSULTANT ST INFUSION J7050 ST ST NORMAL 6 CAT CAT SALINE MED CTR MED CTR SOLUTION SALES DEVELOPMENT CONSULTANT ST SALES DEVELOPMENT CON[address]ULT[address] INFUSION 6 CAT CAT THERAPY/P MED CTR MED CTR ROPHYLAXI SALES DEVELOPMENT CONSULTANT ST SALES DEVELOPMENT CONSULTANT ST S /DX 1ST [place] [address] [place] [address] INFUSION 6 CAT CAT THERAPY/P MED CTR MED CTR ROPHYLAXI SALES DEVELOPMENT CONSULTANT ST SALES DEVELOPMENT CONSULTANT ST S /DX 1ST TO [address] IN[address] NORMAL 6 CAT CAT SALINE MED CTR MED CTR SOLUTION SALES DEVELOPMENT CONSULTANT ST SALES DEVELOPMENT CONSULTANT ST [address] 6 CAT CAT DAPTOMYCI MED CTR MED CTR N 1 MG SALES DEVELOPMENT CONSULTANT ST SALES DEVELOPMENT CONSULTANT ST INFUSION J7050 ST ST NORMAL 6 CAT CAT SALINE MED CTR MED CTR SOLUTION SALES DEVELOPMENT CONSULTANT ST SALES DEVELOPMENT CONSULTANT [address] INFUSION 6 CAT CAT THERAPY/P MED CTR MED CTR ROPHYLAXI SALES DEVELOPMENT CONSULTANT ST SALES DEVELOPMENT CONSULTANT ST S /DX 1ST TO [address] IN[address] 6 CAT CAT DAPTOMYCI MED CTR MED CTR N 1 MG SALES DEVELOPMENT CONSULTANT ST SALES DEVELOPMENT CONSULTANT ST COLLECTIO [address] N VENOUS 6 CAT CAT BLOOD MED CTR MED CTR VENIPUNCT SALES DEVELOPMENT CONSULTANT ST SALES [place] [address] INFUSION 6 CAT CAT THERAPY/P MED CTR MED CTR ROPHYLAXI SALES DEVELOPMENT CONSULTANT ST SALES DEVELOPMENT CONSULTANT ST S /DX 1ST TO [address] NORMAL 6 CAT CAT SALINE MED CTR MED CTR SOLUTION SALES DEVELOPMENT CONSULTANT ST SALES DEVELOPMENT CONSULTANT [address] TION RATE 6 CAT CAT RBC MED CTR MED CTR AUTOMATED SALES DEVELOPMENT CONSULTANT ST SALES DEVELOPMENT CONSULTANT ST BLOOD [address] COUNT 6 CAT CAT COMPLETE MED CTR MED CTR AUTO&AUTO SALES DEVELOPMENT CONSULTANT ST SALES DEVELOPMENT CONSULTANT ST DIFRNTL WBC C-REACTIV [address] E PROTEIN 6 CAT CAT MED CTR MED CTR SALES DEVELOPMENT CONSULTANT ST SALES DEVELOPMENT CONSULTANT ST COMPREHEN [address] SIVE 6 CAT CAT METABOLIC MED CTR MED CTR PANEL SALES DEVELOPMENT CONSULTANT ST SALES DEVELOPMENT CONSULTANT ST CREATINE [address] KINASE 6 CAT CAT TOTAL MED CTR MED CTR SALES DEVELOPMENT CONSULTANT ST SALES DEVELOPMENT CONSULTANT ST INJECTION J0878 ST ST 6 CAT CAT DAPTOMYCI MED CTR MED CTR N 1 MG SALES DEVELOPMENT CONSULTANT ST SALES DEVELOPMENT CONSULTANT ST INJECTION J0878 ST ST 6 CAT CAT DAPTOMYCI MED CTR MED CTR N 1 MG SALES DEVELOPMENT CONSULTANT ST SALES DEVELOPMENT CONSULTANT ST INFUSION J7050 ST ST NORMAL 6 CAT CAT SALINE MED CTR MED CTR SOLUTION SALES DEVELOPMENT CONSULTANT ST SALES DEVELOPMENT CONSULT[address] INFUSION 6 CAT CAT THERAPY/P MED CTR MED CTR ROPHYLAXI SALES DEVELOPMENT CONSULTANT ST SALES DEVELOPMENT CONSULTANT ST S /DX 1ST TO [address] INFUSION 6 CAT CAT THERAPY/P MED CTR MED CTR ROPHYLAXI SALES DEVELOPMENT CONSULTANT ST SALES DEVELOPMENT CONSULTANT ST S /DX 1ST TO [address] INFUSION 6 CAT CAT THERAPY/P MED CTR MED CTR ROPHYLAXI SALES DEVELOPMENT CONSULTANT ST SALES DEVELOPMENT CONSULTANT ST S /DX 1ST TO [address] NORMAL 6 CAT CAT SALINE MED CTR MED CTR SOLUTION SALES DEVELOPMENT CONSULTANT ST SALES DEVELOPMENT CONSULTANT ST [address] 6 CAT CAT DAPTOMYCI MED CTR MED CTR N 1 MG SALES DEVELOPMENT CONSULTANT ST SALES DEVELOPMENT CONSULTANT ST INJECTION J0878 [address] ST 6 CAT CAT DAPTOMYCI MED CTR MED CTR N 1 MG SALES DEVELOPMENT CONSULT[place] [address] INFUSION 6 CAT CAT THERAPY/P MED CTR MED CTR ROPHYLAXI SALES DEVELOPMENT CONSULTANT ST SALES DEVELOPMENT CONSULTANT ST S /DX 1ST TO [address] IN[address] NORMAL 6 CAT CAT SALINE MED CTR MED CTR SOLUTION SALES DEVELOPMENT CONSULTANT ST SALES DEVELOPMENT CONSULTANT ST [address] COUNT 6 CAT CAT COMPLETE MED CTR MED CTR AUTO&AUTO SALES DEVELOPMENT CONSULTANT ST SALES DEVELOPMENT CONSULTANT ST DIFRNTL WBC SEDIMENTA [address] TION RATE 6 CAT CAT RBC MED CTR MED CTR AUTOMATED SALES DEVELOPMENT CONSULTANT ST SALES DEVELOPMENT CONSULTANT ST C-REACTIV [address] E PROTEIN 6 CAT CAT MED CTR MED CTR SALES DEVELOPMENT CONSULTANT ST SALES DEVELOPMENT CONSULTANT ST BASIC [address] METABOLIC 6 CAT CAT PANEL MED CTR MED CTR CALCIUM SALES DEVELOPMENT CONSULTANT ST SALES DEVELOPMENT CONSULTANT ST TOTAL INFUSION J7050 ST ST NORMAL 6 CAT CAT SALINE MED CTR MED CTR SOLUTION SALES DEVELOPMENT CONSULTANT ST SALES DEVELOPMENT CONSULTANT [address] KINASE MB 6 CAT CAT FRACTION MED CTR MED CTR ONLY SALES DEVELOPMENT CONSULTANT ST SALES DEV[place] INFUSION 6 CAT CAT THERAPY/P MED CTR MED CTR ROPHYLAXI SALES DEVELOPMENT CONSULTANT ST SALES DEVELOPMENT CONSULTANT ST S /DX 1ST TO [address] 6 CAT CAT DAPTOMYCI MED CTR MED CTR N 1 MG SALES DEVELOPMENT CONSULTANT ST SALES DEVELOPMENT CONSULTANT ST INJECTION J0[address] 6 CAT CAT DAPTOMYCI MED CTR MED CTR N 1 MG SALES DEVELOPMENT CONSULTANT ST SALES DEVELOPMENT CONSULTANT ST INFUSION J7050 ST ST NORMAL 6 CAT CAT SALINE MED CTR MED CTR SOLUTION SALES DEVELOPMENT CONSULTANT ST SALES DEVELOPMENT CON[address]ULT[address] INFUSION 6 CAT CAT THERAPY/P MED CTR MED CTR ROPHYLAXI SALES DEVELOPMENT CONSULTANT ST SALES DEVELOPMENT CONSULTANT ST S /DX 1ST TO [address] INFUSION 6 CAT CAT THERAPY/P MED CTR MED CTR ROPHYLAXI SALES DEVELOPMENT CONSULTANT ST SALES DEVELOPMENT CONSULTANT ST S /DX 1ST TO [address] IN[address] NORMAL 6 CAT CAT SALINE MED CTR MED CTR SOLUTION SALES DEVELOPMENT CONSULTANT ST SALES DEVELOPMENT CONSULTANT ST [address] 6 CAT CAT DAPTOMYCI MED CTR MED CTR N 1 MG SALES DEVELOPMENT CONSULTANT ST SALES DEVELOPMENT CONSULTANT ST INJECTION J0[address] 6 CAT CAT DAPTOMYCI MED CTR MED CTR N 1 MG SALES DEVELOPMENT CONSULTANT ST SALES DEVELOPMENT CONSULTANT ST INFUSION J70[address] ST NORMAL 6 CAT CAT SALINE MED CTR MED CTR SOLUTION SALES DEVELOPMENT CONSULTANT ST SALES DEVELOPMENT CON[address]ULT[address] INFUSION 6 CAT CAT THERAPY/P MED CTR MED CTR ROPHYLAXI SALES DEVELOPMENT CONSULTANT ST SALES DEVELOPMENT CONSULTANT ST S /DX 1ST TO [address] NORMAL 6 CAT CAT SALINE MED CTR MED CTR SOLUTION SALES DEVELOPMENT CONSULTANT ST SALES DEVELOPMENT CONSULTANT ST [address] 6 CTA CAT DAPTOMYCI MED CTR MED CTR N 1 MG SALES DEVELOPMENT CONSULTANT ST SALES DEVELOPMENT CONSULTANT ST INJECTION J0[address] 6 CAT CAT DAPTOMYCI MED CTR MED CTR N 1 MG SALES DEVELOPMENT CONSULTANT ST SALES DEVELOPMENT CONSULTANT ST INFUSION J7050 ST ST NORMAL 6 CAT CAT SALINE MED CTR MED CTR SOLUTION SALES DEVELOPMENT CONSULTANT ST SALES DEVELOPMENT CONSULTANT [address] INFUSION 6 CAT CAT THERAPY/P MED CTR MED CTR ROPHYLAXI SALES DEVELOPMENT CONSULTANT ST SALES DEVELOPMENT CONSULTANT ST S /DX 1ST TO [address] IN[address] 6 CAT CAT DAPTOMYCI MED CTR MED CTR N 1 MG SALES DEVELOPMENT CONSULTANT [place] [address] INFUSION 6 CAT CAT THERAPY/P MED CTR MED CTR ROPHYLAXI SALES DEVELOPMENT CONSULTANT ST SALES DEVELOPMENT CONSULTANT ST S /DX 1ST TO [address] NORMAL 6 CAT CAT SALINE MED CTR MED CTR SOLUTION SALES DEVELOPMENT CONSULTANT ST SALES DEVELOPMENT CONSULTANT ST [address] NORMAL 6 CAT CAT SALINE MED CTR MED CTR SOLUTION SALES DEVELOPMENT CONSULTANT ST SALES DEVELOPMENT CONSULTANT ST [address] COUNT 6 CAT CAT COMPLETE MED CTR MED CTR AUTO&AUTO SALES DEVELOPMENT CONSULTANT ST SALES DEVELOPMENT CONSULTANT ST DIFRNTL WBC SEDIMENTA [address] TION RATE 6 CAT CAT RBC MED CTR MED CTR AUTOMATED SALES DEVELOPMENT CONSULTANT ST SALES DEVELOPMENT CONSULTANT ST BAS[address] METABOLIC 6 CAT CAT PANEL MED CTR MED CTR CALCIUM SALES DEVELOPMENT CONSULTANT ST SALES DEVELOPMENT CONSULTANT ST TOTAL C-REACTIV [address] E PROTEIN 6 CAT CAT MED CTR MED CTR SALES DEVELOPMENT CONSULT[place] [address] INFUSION 6 CAT CAT THERAPY/P MED CTR MED CTR ROPHYLAXI SALES DEVELOPMENT CONSULTANT ST SALES DEVELOPMENT CONSULTANT ST S /DX 1ST TO [address] IN[address] 6 CAT CAT DAPTOMYCI MED CTR MED CTR N 1 MG SALES DEVELOPMENT CONSULTANT ST SALES DEVELOPMENT CONSULTANT ST COLLECTIO [address] N VENOUS 6 CAT CAT BLOOD MED CTR MED CTR VENIPUNCT SALES DEVELOPMENT CONSULTANT ST SALES DEVELOPMENT CONSULTANT ST URE CREATINE [address] KINASE 6 CAT CAT TOTAL MED CTR MED CTR SALES DEVELOPMENT CONSULTANT ST SALES DEVELOPMENT CONSULTANT ST INJECTION J0878 ST ST 6 CAT CAT DAPTOMYCI MED CTR MED CTR N 1 MG SALES DEVELOPMENT CONSULTANT ST [place] [address] INFUSION 6 CAT CAT THERAPY/P MED CTR MED CTR ROPHYLAXI SALES DEVELOPMENT CONSULTANT ST SALES DEVELOPMENT CONSULTANT ST S /DX 1ST TO [address] NORMAL 6 CAT CAT SALINE MED CTR MED CTR SOLUTION SALES DEVELOPMENT CONSULTANT ST SALES DEVELOPMENT CONSULTANT ST [address] NORMAL 6 CAT CAT SALINE MED CTR MED CTR SOLUTION SALES DEVELOPMENT CONSULTANT ST SALES DEVELOPMENT CONSULTANT [address] INFUSION 6 CAT CAT THERAPY/P MED CTR MED CTR ROPHYLAXI SALES DEVELOPMENT CONSULTANT ST SALES DEVELOPMENT CONSULTANT ST S /DX 1ST TO [address] IN[address] 6 CAT CAT DAPTOMYCI MED CTR MED CTR N 1 MG SALES DEVELOPMENT CONSULTANT ST SALES DEVELOPMENT CONSULTANT ST INJECTION J0[address] ST 6 CAT CAT DAPTOMYCI MED CTR MED CTR N 1 MG SALES DEVELOPMENT CONSULTANT [place] [address] INFUSION 6 CAT CAT THERAPY/P MED CTR MED CTR ROPHYLAXI SALES DEVELOPMENT CONSULTANT ST SALES DEVELOPMENT CONSULTANT ST S /DX 1ST TO [address] IN[id number] NORMAL 6 CAT CAT SALINE MED CTR MED CTR SOLUTION SALES DEVELOPMENT CONSULTANT ST SALES DEVELOPMENT CON[address]ULT[address] [place] [id number] INFUSION 6 CAT CAT THERAPY/P MED CTR MED CTR ROPHYLAXI SALES DEVELOPMENT CONSULTANT ST SALES DEVELOPMENT CONSULTANT ST S /DX 1ST TO [id number] NORMAL 6 CAT CAT SALINE MED CTR MED CTR SOLUTION SALES DEVELOPMENT CONSULTANT ST SALES DEVELOPMENT CONSULTANT ST [address] IN[id number] 6 CAT CAT DAPTOMYCI MED CTR MED CTR N 1 MG SALES DEVELOPMENT CONSULTANT ST SALES DEVELOPMENT CONSULTANT ST INJECTION [id number] ST ST 6 CAT CAT DAPTOMYCI MED CTR MED CTR N 1 MG SALES DEVELOPMENT CONSULTANT ST SALES DEVELOPMENT CONSULTANT ST INFUSION [id number] ST ST NORMAL 6 CAT CAT SALINE MED CTR MED CTR SOLUTION SALES DEVELOPMENT CONSULTANT ST SALES DEVELOPMENT [id number] INFUSION 6 CAT CAT THERAPY/P MED CTR MED CTR ROPHYLAXI SALES DEVELOPMENT CONSULTANT ST SALES DEVELOPMENT CONSULTANT ST S /DX 1ST TO [address] [place] [address] INFUSION 6 CAT CAT THERAPY/P MED CTR MED CTR ROPHYLAXI SALES DEVELOPMENT CONSULTANT ST SALES DEVELOPMENT CONSULTANT ST S /DX 1ST TO [address] IN[id number] 6 [facility] D[facility] MED [facility] MED CTR N 1 MG SALES DEVELOPMENT CONSULTANT ST SALES DEVELOPMENT CONSULTANT ST INFUSION [id number] NORMAL 6 [facility] SOLUTION SALES DEVELOPMENT CONSULTANT ST SALES DEVELOPMENT CONSULTANT ST 250 CC SBSQ [id number] CARE/DAY 25 PHYSICIAN MINUTES S HOSPITAL [id number] [facility] 6 [facility] MANAGEMEN PHYSICIAN T > 30 S MIN SBSQ [address] CARE/DAY 25 PHYSICIAN MINUTES S SBSQ [address] CARE/DAY 35 PHYSICIAN MINUTES S FLUORO [address] [facility] [place] CENTRAL 6 MCKOY VENOUS ASSOCIATE ACCESS S [facility] DEV PLACEMENT ANES 79866 ANESTHESI JJ NON-INVAS 6 A GROUP AGNIESZKA [facility] IMAGING/R ADIATION THERAPY INSJ [facility] [address] [facility] [place] CVC W/O 6 MCKOY SUBQ ASSOCIATE PORT/LABOR CREW SUPERVISOR S [facility] AGE 7 YR/> DOPPLER [address] [facility] FA[facility] MARI[facility] ECHOCARD 6 CAT PULSE WAVE PHYSICIAN W/SPECTRA S L DISPLAY US VASC 89674 [facility] [place] ACCESS 6 MCKOY SITS VSL ASSOCIATE PATENCY S [facility] NDL ENTRY ECHO 69153 [facility] FA[facility] TRANSESOP 6 CAT HAG R-T 2D W/PRB PHYSICIAN IMG S ACQUISJ I&R DOP 05386 ST [facility] ECHOCARD 6 CAT COLOR FLOW PHYSICIAN VELOCITY S MAPPING FLUORO [id number] ST ST SUP VENA 6 CAT CAT CAVA LOW [facility] CONTRST E EDGE E EDGE GUID INSERTION [id number] ST ST INFUSION 6 CAT CAT DEVC [facility] VENA CAVA E EDGE E EDGE PERQ ECHO [address] [facility] R-T 6 CAT CAT 2D W/WOM-MOD PHYSICIAN PHYSICIAN E COMPL S S SPEC&COLR D INITIAL 56445 [facility] 6 CAT CONSULT NEW/ESTAB PHYSICIAN PT 40 S MIN CULTURE 89854 [facility] BACTERIAL 6 [facility] INC INC QUANTTATI VE COLONY COUNT URINE COMPREHEN 82793 [facility] SIVE 6 [facility] METABOLIC INC INC PANEL BLOOD 78655 [facility] COUNT 6 [facility] COMPLETE INC INC AUTO&AUTO DIFRNTL WBC URNLS DIP 05177 [facility] STICK/TAB INC [place] [address] [facility] INFUSION 6 [facility] THERAPY/P INC INC ROPHYLAXI S /DX 1ST TO 1 [place] [address] [facility] STREPTOCO 6 [facility] CCUS INC INC GROUP A CUL BACT 50033 [facility] XCPT 6 [facility] URINE INC INC BLOOD/STO OL AEROBIC ISOL SKIN TEST 12509 [facility] 5 CAT [place] TUBERCULO SIS PHYSICIAN INTRADERM [place] V [address] [facility] SURG 5 CAT [facility]OLOG[facility] MED CTR GROSS&RUPINDER ROSCOPIC EXAM 61483 [facility] BIOPHYSIC 2 MATERNAL AND AL PROFILE MED W/O NON-STRES [place] TESTING [place] PREG 01512 [facility] UTERUS 2 MATERNAL AND W/DETAIL MED MAGUI 1ST GESTATION US PREG 92831 [facility] UTERUS 1 MATERNAL DON W/DETAIL ME MAGUI 1ST GESTATION Encounters Encounter Start End Date Code Location Performer Type Date HOSPITAL ST - 7 7 [facility] OUTPATIEN [facility] 23704 [facility] 6 6 [facility] H[facility] T VISIT HIGH/URGE NT SEVERITY EMERGENCY 44106 QUALIFIED POLICASTR DEPT 6 6 O RUPINDER VISIT EMERGENCY HIGH SPECIALI SEVERITY& THREAT [facility] GOOD - 6 6 [facility]P T EMERGENCY 02399 JEWELS LICONA 6 6 PHYSICIAN DEPARTMEN S, [facility] T VISIT HIGH/URGE NT SEVERITY [facility] - 6 6 [facility]IEN INC T EMERGENCY 19340 [facility] 6 6 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 83755 INFECTIOU LOMELI OUTPATIEN 6 6 S DISEASE AGNIESZKA T VISIT [address] [place] [address] ST - 6 6 CAT OUTPATIEN MED CTR T [facility] ST - 6 6 CAT OUTPATIEN MED CTR T [facility] ST - 6 6 CAT OUTPATIEN MED CTR T [facility] ST - 6 6 CAT OUTPATIEN MED CTR T [facility] ST - 6 6 CAT OUTPATIEN MED CTR T [facility] ST - 6 6 CAT OUTPATIEN MED CTR T [facility] ST - 6 6 CAT OUTPATIEN MED CTR T [facility] ST - 6 6 CAT INPATIENT [facility] MAYO - 6 6 MEM HOS[facility] OUTPATIEN INC T EMERGENCY 10417 MAY[facility] 6 6 [facility] INC T VISIT LOW/MODER SEVERITY EMERGENCY 70995 JEWELS HUNTER 6 6 PHYSICIAN RUPINDER [facility] T VISIT HIGH/URGE NT SEVERITY EMERGENCY 62501 JEWELS GARCIA 6 6 PHYSICIAN [place]INA [facility] T VISIT HIGH/URGE NT SEVERITY EMERGENCY 47693 [facility] 6 6 [facility] INC T VISIT LOW/MODER SEVERITY EMERGENCY 36240 JEWELS GARCIA 6 6 PHYSICIAN KAROLINA [facility] T VISIT MODERATE SEVERITY HOSPITAL MAYO - 6 6 [facility] T
--- OUTSIDE RECORDS SUMMARY | 2017-04-08 06:34 | External Medical Summary Rpt ---
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 Name Role Phone [facility] Unavailable [facility], [facility] TOBY, TOBY Unavailable Unavailable PRETTY JAM, PRETTY JAM Unavailable Unavailable [facility] Unavailable Unavailable PHYSICIANS, [facility] FAITHTye MERAZ, VIANNEY MERAZ Unavailable Unavailable DANYELL, DANYELL Unavailable Unavailable DALE RUPINDER, DALE Unavailable Unavailable RUPINDER [facility], Unavailable Unavailable [facility] Unavailable Unavailable INC, [facility] HARTIG KAROLINA, HARTIG Unavailable Unavailable KAROLINA LYNCH [facility], LYNCH Unavailable Unavailable AND HERNANDEZ LIVAN, HERNANDEZ LIVNA Unavailable Unavailable ANGELA MCKOY, ANGELA Unavailable Unavailable MCKOY LAMBERS DON, LAMBERS Unavailable Unavailable DON [facility], Unavailable Unavailable [facility], Unavailable Unavailable PLL[facility], [facility] LOMELI AGNIESZKA, Unavailable Unavailable LOMELI JOH POLICASTRO RUPINDER, Unavailable Unavailable POLICA[facility] RUPINDER [facility] Unavailable Unavailable [facility], [facility] Unavailable Unavailable [facility], [facility] JOSE TURCIOS, JOSE Unavailable Unavailable KAROLINA AARON, JJ Unavailable Unavailable AGNIESZKA HESS, Unavailable Unavailable MARIA A HEArnold PATEL GUR, PATEL Unavailable Unavailable YAMILA NIEVES, Unavailable Unavailable SARAHI JOSHUA, JOSHUA Unavailable Unavailable [facility] Unavailable Unavailable [facility], Unavailable Unavailable [facility] Unavailable Unavailable WELDING PROCESS SPECIALIST , [facility] WELDING PROCESS SPECIALIST [facility] Unavailable Unavailable [facility], [facility] ZAID FORDE, ZAID Unavailable Unavailable [facility] Un[facility] Un[facility], [facility] Unavailable Unavailable ME, [facility] BLILY SCO, BILLY SCO Unavailable Unavailable VON [facility]ENE AMA, VON Unavailable Unavailable HO[facility] AMA TANISHA EDENKIND Unavailable Unavailable MIRANDA Purpose Continuity of Care Document - 04-17-2011 through 2016 Problems Code Diagnosis DOS Provider Status N390 URINARY 07-06-2016 ST TRACT CAT INFECTION HEALTHCARE SITE NOT EDGE SPECIFIED R5381 OTHER 07-06-2016 ST MALAISE [facility] R5383 OTHER 07-06-2016 ST FATIGUE [facility] O031 DELAY/EXCES 04-23-2016 [facility] S [facility] FOLLOW PRACTICE INCMPL SPONT N939 ABNORMAL 04-22-2016 QUALIFIED UTERINE & EMERGENCY VAGINAL SPECIALI BLEEDING UNSPECIFIED R102 PELVIC AND 04-22-2016 QUALIFIED PERINEAL EMERGENCY PAIN SPECIALI R7889 FINDING OTH 04-22-2016 QUALIFIED SPEC EMERGENCY SUBSTANCES SPECIALI NOT NORM FOUND BLOOD Z8614 PERSONAL HX 04-22-2016 [facility] RSIST STAPH INFECTION Z880 ALLERGY 04-22-2016 [facility] Z882 ALLERGY 04-22-2016 [facility] STATUS N898 OTHER 04-21-2016 [facility]CIF[facility], NONINFLAMMA PLLC TORY DISORDERS VAGINA O036 DELAY/EXCES 04-21-2016 [facility] FLW INC CMPL/UNS SPONT [id number] CARRIER/GERTRUDIS 04-21-2016 [facility] METHIC[facility]IN RSIST STAPH Z720 TOBACCO USE 04-21-2016 [facility] R799 ABNORMAL 04-19-2016 ST FINDING OF CAT BLOOD PHYSICIANS CHEMISTRY UNSPECIFIED M1288 OTHER 04-18-2016 [facility] ARTHROPATHI ES NEC OTHER SPEC SITE M609 MYOSITIS 04-18-2016 [facility] UNSPECIFIED [facility] 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 INSUFFICIEN CY B1920 UNS VIRAL 04-15-2016 [facility] WITHOUT PHYSICIANS HEPATIC COMA I330 ACUTE AND 04-15-2016 [facility] SUBACUTE [facility] INFECTIVE PHYSICIANS ENDOCARDITI S M4650 OTHER 04-15-2016 [facility] SPONDYLOPAT PHYSICIANS HIES SITE UNSPECIFIED N32145 SPONDYLOSIS 04-15-2016 [facility] W/O ASSOC[facility]ATES MYELOPATH/R [facility] ADICULOPATH Y LUMB RGN R7881 BACTEREMIA 10-16-2016 [facility] PH[facility] B1710 ACUTE 03-27-2016 ST HEPATITIS C CAT WITHOUT MED CTR WELDING PROCESS SPECIALIST HEPATIC ST COMA Q81284 OTHER LONG 02-29-2016 ST TERM CAT CURRENT MED CTR WELDING PROCESS SPECIALIST DRUG ST THERAPY A499 BACTERIAL 02-21-2016 ST INFECTION CAT UNSPECIFIED PHYSICIANS 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 INSUFFICIEN CY I38 ENDOCARDITI 02-15-2016 ANESTHESIA S VALVE GROUP UNSPECIFIED PRACTICE Z452 ENCOUNTER 02-15-2016 RADIOLOG[facility] ADJUSTMENT& ASSOCIATES [facility] VASCULAR ACCESS DEVICE Z331 02-11-2016 ST STATE CAT INCIDENTAL PHYSICIANS A4102 SEPSIS D/T 02-10-2016 ST METHICILLIN CAT RSIST HEALTHCARE STAPH EDGE I2690 SEPTIC 02-10-2016 ST PULMONARY CAT EMBO W/O HEALTHCARE ACUTE COR EDGE PULMONALE P09758 PRE-EXISTIN 02-10-2016 ST G ESSENTIAL CAT HTN COMP HEALTHCARE PREG FIRST EDGE TRI T26066 OTH 02-10-2016 ST MATERNAL CAT INF & HEALTHCARE PARASIT DZ EDGE COMP PREG 1ST TRI K69482 DRUG USE 02-10-2016 ST COMPLICATIN CAT G [...] EXAMINATION CAT FOR PHYSICIANS PULMONARY TUBERCULOSI S 81805 TWIN 07-14-2014 ST CAT UNSPECIFIED MED CTR TO EPISODE OF CARE 64418 OT CURRENT 08-09-2011 [facility] MAT CONDS MATERNAL CLASSIFIABL MED E ELSW ANTPRTM 39328 DECR 08-09-2011 [facility] MOVMNTS MATERNAL MGMT MOTH MED ANTPRTM COND/COMP 64130 08-09-2011 [facility] DISTRESS MATERNAL AFFECT MED MANAGEMENT MOTH ANTEPARTUM V239 UNSPECIFIED 08-09-2011 [facility] HIGH-RISK MATERNAL MED 59996 UNS 04-17-2011 [facility] ABNORM MGMT MATERNAL MOTH [...] 20 IN 0 C. MG TA B IN 57 05 06 30 30 00 GR [...] Procedure DOS Code Location Performer Comment COMPREHEN 75279 [facility] 7 CAT CAT METABOLIC PANEL [place] [address] [facility] TRIIODOTH 7 CAT [place] YRONINE T3 FREE HEALTHCAR HEALTHCAR E EDGE E EDGE BLOOD [address] COUNT 7 CAT [place] COMPLETE AUTOMATED [facility] [address] FREE 7 CAT [place] THYROXINE [facility] [address] [facility] THYROID 7 CAT [place] STIMULATI NG HEALTHCAR HEALTHCAR HORMONE E EDGE E EDGE TSH COLLECTIO 49224 [facility] N VENOUS 6 [facility] BLOOD [facility]OS[facility] HOSP VENIPUNCT URE INJECTION J2250 [facility] 6 [facility] HCL PER 1 MG ANESTHESI 31678 [facility] A 6 [facility] INCOMPLET [facility]OSP HOSP E/MISSED US PREG 43383 [facility] UTERUS 6 [facility] TIME [facility] HOSP W/IMAGE DCMTN TRANSVAG SBSQ 89075 [facility] OBSERVATI 6 [facility] ON [facility]OSP HOSP CARE/DAY 15 MINUTES GONADOTRO 09372 [facility] PIN 6 [facility] [address] [facility] INCOMPLET 6 [facility] E HOSP HOSP ANY TRIMESTER SURGICAL BLOOD 69565 [facility] COUNT 6 [facility] COMPLETE HOSP HOSP AUTOMATED INJECTION J2704 [facility] PROPOFOL 6 [facility] 10 MG HOSP HOSP INJECTION J3010 [facility] FENTANYL 6 [facility]P 0.1 MG ANESTHESI 38096 ANESTHESI DANYELL A VAGINAL 6 A GROUP PRACTICE PROCEDURE W/[place] [address] [facility] SURG 6 [facility] PATHOLOGY [facility] HOSP GROSS&RUPINDER ROSCOPIC EXAM INJECTION J2210 [facility] 6 [facility] HOSP ONOVINE MALEATE UP TO 0.2 MG INJECTION J2590 [facility] OXYTOCIN 6 [facility] UP TO 10 HOSP HOSP UNITS INJECTION J2405 [facility] 6 [facility] HOSP ON HCL PER 1 MG INJECTION J2765 [facility] 6 [facility] METOCLOPR [facility]OSP HOSP AMIDE HCL UP TO 10 MG GONADOTRO 68636 [facility] PIN 6 [facility] CHORIONIC HOSP HOSP QUANTITAT [place] URINE 90244 [facility] 6 [facility] TEST HOSP HOSP VISUAL COLOR CMPRSN METHS BLOOD 49272 [facility] TYPING 6 [facility] SEROLOGIC HOSP HOSP RH (D) SMR PRIM 44659 [facility] SRC WET 6 [facility] MOUNT HOSP HOSP NFCT AGT IADNA 45117 [facility] CHLAMYDIA 6 [facility] HOSP HOSP TRACHOMAT IS AMPLIFIED PROBE TQ ANTIBODY 10669 [facility] SCREEN 6 [facility] RBC EACH HOSP HOSP SERUM TECHNIQUE BLOOD 44210 [facility] TYPING 6 [facility] SEROLOGIC HOSP HOSP ABO IADNA 20609 [facility] NEISSERIA 6 [facility] HOSP HOSP GONORRHOE AE AMPLIFIED PROBE TQ URNLS DIP 37074 [facility] 6 [facility] STICK/TAB HOSP HOSP LET RGNT AUTO W/O MICROSCOP Y CULTURE 97704 [facility] BACTERIAL 6 [facility] BLOOD HOSP HOSP AEROBIC W/ID ISOLATES BLOOD 52902 [facility] COUNT 6 [facility] COMPLETE HOSP HOSP AUTO&AUTO DIFRNTL WBC BASIC 66441 [facility] METABOLIC 6 [facility] PANEL HOSP HOSP CALCIUM IONIZED INITIAL 84053 [facility] OBSERVATI 6 [facility] ON HOSP HOSP CARE/DAY 30 [place] [address] [facility] LACTATE 6 [facility] HOSP HOSP COLLECTIO 27863 [facility] N VENOUS 6 [facility] [place] [address] [facility] INFUSION 6 [facility] HYDRATION HOSP HOSP INITIAL 31 MIN-1 [place] [address] [facility] INFUSION 6 [facility] HYDRATION HOSP HOSP EACH ADDITIONA L HOUR INITIAL 68774 [facility] [place] INPATIENT 6 CAT AMA CONSULT NEW/ESTAB PHYSICIAN [place] [address] [place] [address] [facility]KE[facility] GUIDANCE 6 NEEDLE ASSOCIATE PLACEMENT S OF [facility] BIOPSY RADIOLOGY PRETTY MCKEON MUSCLE 6 PERCUTANE ASSOCIATE OUS S OF [facility] NEEDLE SBSQ 17175 [facility] 6 CLINIC, CARE/DAY INC [address]ES [address] ZALKIND TTHRC R-T 6 CAT MIRANDA 2D W/WOM-MOD PHYSICIAN E COMPL S SPEC&COLR D INITIAL 98080 [facility] INPATIENT 6 CLINIC, CLINIC, CONSULT INC INC NEW/ESTAB PT 55 MIN MRI 40120 RADIOLOG[facility] BILLY SCO SPINAL 6 CANAL ASSOCIATE LUMBAR S [facility] W/O & W/CONTR MATRL C-REACTIV [address] E PROTEIN 6 CAT CAT MED CTR MED CTR WELDING PROCESS SPECIALIST ST WELDING PROCESS SPECIALIST ST CULTURE [address] BACTERIAL 6 CAT CAT BLOOD MED CTR MED CTR AEROBIC WELDING PROCESS SPECIALIST ST WELDING PROCESS SPECIALIST ST W/ID ISOLATES HEPATIC [address] FUNCTION 6 CAT CAT PANEL MED CTR MED CTR WELDING PROCESS SPECIALIST ST WELDING PROCESS SPECIALIST ST BLOOD [address] COUNT 6 CAT CAT COMPLETE MED CTR MED CTR AUTOMATED WELDING PROCESS SPECIALIST ST WELDING PROCESS SPECIALIST ST SEDIMENTA [address] TION RATE 6 CAT CAT RBC MED CTR MED CTR AUTOMATED WELDING PROCESS SPECIALIST ST WELDING PROCESS SPECIALIST ST COLLECTIO [address] N VENOUS 6 CAT CAT BLOOD MED CTR MED CTR VENIPUNCT WELDING PROCESS SPECIALIST [place] [address] INFUSION 6 CAT CAT THERAPY/P MED CTR MED CTR ROPHYLAXI WELDING PROCESS SPECIALIST ST WELDING PROCESS SPECIALIST ST S /DX 1ST TO [address] NORMAL 6 CAT CAT SALINE MED CTR MED CTR SOLUTION WELDING PROCESS SPECIALIST ST WELDING PROCESS SPECIALIST ST [address] 6 CAT CAT DAPTOMYCI MED CTR MED CTR N 1 MG WELDING PROCESS SPECIALIST ST WELDING PROCESS SPECIALIST ST INJECTION J0878 ST ST 6 CAT CAT DAPTOMYCI MED CTR MED CTR N 1 MG WELDING PROCESS SPECIALIST ST WELDING PROCESS SPECIALIST ST INFUSION J7050 ST ST NORMAL 6 CAT CAT SALINE MED CTR MED CTR SOLUTION WELDING PROCESS SPECIALIST ST WELDING PROCESS SPECIALIST [address] [place] [address] INFUSION 6 CAT CAT THERAPY/P MED CTR MED CTR ROPHYLAXI WELDING PROCESS SPECIALIST ST WELDING PROCESS SPECIALIST ST S /DX 1ST TO [address] [place] [address] INFUSION 6 CAT CAT THERAPY/P MED CTR MED CTR ROPHYLAXI WELDING PROCESS SPECIALIST ST WELDING PROCESS SPECIALIST ST S /DX 1ST TO [address] NORMAL 6 CAT CAT SALINE MED CTR MED CTR SOLUTION WELDING PROCESS SPECIALIST ST WELDING PROCESS SPECIALIST ST [address] IN[address] 6 CAT CAT DAPTOMYCI MED CTR MED CTR N 1 MG WELDING PROCESS SPECIALIST ST WELDING PROCESS SPECIALIST ST INFUSION J7050 ST ST NORMAL 6 CAT CAT SALINE MED CTR MED CTR SOLUTION WELDING PROCESS SPECIALIST ST WELDING PROCESS SPECIALIST [address] [place] [address] INFUSION 6 CAT CAT THERAPY/P MED CTR MED CTR ROPHYLAXI WELDING PROCESS SPECIALIST ST WELDING PROCESS SPECIALIST ST S /DX 1ST TO [address] IN[address] 6 CAT CAT DAPTOMYCI MED CTR MED CTR N 1 MG WELDING PROCESS SPECIALIST ST WELDING PROCESS SPECIALIST ST COLLECTIO [address] N VENOUS 6 CAT CAT BLOOD MED CTR MED CTR VENIPUNCT WELDING PROCESS SPECIALIST [place] [address] INFUSION 6 CAT CAT THERAPY/P MED CTR MED CTR ROPHYLAXI WELDING PROCESS SPECIALIST ST WELDING PROCESS SPECIALIST ST S /DX 1ST TO [address] NORMAL 6 CAT CAT SALINE MED CTR MED CTR SOLUTION WELDING PROCESS SPECIALIST ST WELDING PROCESS SPECIALIST ST [address] TION RATE 6 CAT CAT RBC MED CTR MED CTR AUTOMATED WELDING PROCESS SPECIALIST ST WELDING PROCESS SPECIALIST ST BLOOD [address] COUNT 6 CAT CAT COMPLETE MED CTR MED CTR AUTO&AUTO WELDING PROCESS SPECIALIST ST WELDING PROCESS SPECIALIST ST DIFRNTL WBC C-REACTIV [address] E PROTEIN 6 CAT CAT MED CTR MED CTR WELDING PROCESS SPECIALIST ST WELDING PROCESS SPECIALIST ST COMPREHEN [address] SIVE 6 CAT CAT METABOLIC MED CTR MED CTR PANEL WELDING PROCESS SPECIALIST ST WELDING PROCESS SPECIALIST ST CREATINE [address] KINASE 6 CAT CAT TOTAL MED CTR MED CTR WELDING PROCESS SPECIALIST ST WELDING PROCESS SPECIALIST ST INJECTION J0878 ST ST 6 CAT CAT DAPTOMYCI MED CTR MED CTR N 1 MG WELDING PROCESS SPECIALIST ST WELDING PROCESS SPECIALIST ST INJECTION J0878 ST ST 6 CAT CAT DAPTOMYCI MED CTR MED CTR N 1 MG WELDING PROCESS SPECIALIST ST WELDING PROCESS SPECIALIST ST INFUSION J7050 ST ST NORMAL 6 CAT CAT SALINE MED CTR MED CTR SOLUTION WELDING PROCESS SPECIALIST ST WELDING PROCESS SPECIALIST [address] [place] [address] INFUSION 6 CAT CAT THERAPY/P MED CTR MED CTR ROPHYLAXI WELDING PROCESS SPECIALIST ST WELDING PROCESS SPECIALIST ST S /DX 1ST TO [address] [place] [address] INFUSION 6 CAT CAT THERAPY/P MED CTR MED CTR ROPHYLAXI WELDING PROCESS SPECIALIST ST WELDING PROCESS SPECIALIST ST S /DX 1ST TO [address] [place] [address] INFUSION 6 CAT CAT THERAPY/P MED CTR MED CTR ROPHYLAXI WELDING PROCESS SPECIALIST ST WELDING PROCESS SPECIALIST ST S /DX 1ST TO [address] NORMAL 6 CAT CAT SALINE MED CTR MED CTR SOLUTION WELDING PROCESS SPECIALIST ST WELDING PROCESS SPECIALIST ST [address] 6 CAT CAT DAPTOMYCI MED CTR MED CTR N 1 MG WELDING PROCESS SPECIALIST ST WELDING PROCESS SPECIALIST ST INJECTION J0[address] 6 CAT CAT DAPTOMYCI MED CTR MED CTR N 1 MG WELDING PROCESS SPECIALIST [place] [address] INFUSION 6 CAT CAT THERAPY/P MED CTR MED CTR ROPHYLAXI WELDING PROCESS SPECIALIST ST WELDING PROCESS SPECIALIST ST S /DX 1ST TO [address] IN[address] NORMAL 6 CAT CAT SALINE MED CTR MED CTR SOLUTION WELDING PROCESS SPECIALIST ST WELDING PROCESS SPECIALIST ST [address] COUNT 6 CAT CAT COMPLETE MED CTR MED CTR AUTO&AUTO WELDING PROCESS SPECIALIST ST WELDING PROCESS SPECIALIST ST DIFRNTL WBC SEDIMENTA [address] TION RATE 6 CAT CAT RBC MED CTR MED CTR AUTOMATED WELDING PROCESS SPECIALIST ST WELDING PROCESS SPECIALIST ST C-REACTIV [address] E PROTEIN 6 CAT CAT MED CTR MED CTR WELDING PROCESS SPECIALIST ST WELDING PROCESS SPECIALIST ST BASIC [address] METABOLIC 6 CAT CAT PANEL MED CTR MED CTR CALCIUM WELDING PROCESS SPECIALIST ST WELDING PROCESS SPECIALIST ST TOTAL INFUSION J7050 ST ST NORMAL 6 CAT CAT SALINE MED CTR MED CTR SOLUTION WELDING PROCESS SPECIALIST ST WELDING PROCESS SPECIALIST ST [address] KINASE MB 6 CAT CAT FRACTION MED CTR MED CTR ONLY WELDING PROCESS SPECIALIST [place] [address] INFUSION 6 CAT CAT THERAPY/P MED CTR MED CTR ROPHYLAXI WELDING PROCESS SPECIALIST ST WELDING PROCESS SPECIALIST ST S /DX 1ST TO [address] IN[address] 6 CAT CAT DAPTOMYCI MED CTR MED CTR N 1 MG WELDING PROCESS SPECIALIST ST WELDING PROCESS SPECIALIST ST INJECTION J0[address] ST ST 6 CAT CAT DAPTOMYCI MED CTR MED CTR N 1 MG WELDING PROCESS SPECIALIST ST WELDING PROCESS SPECIALIST ST INFUSION J7050 ST ST NORMAL 6 CAT CAT SALINE MED CTR MED CTR SOLUTION WELDING PROCESS SPECIALIST ST WELDING PROCESS SPECIALIST [address] [place] [address] INFUSION 6 CAT CAT THERAPY/P MED CTR MED CTR ROPHYLAXI WELDING PROCESS SPECIALIST ST WELDING PROCESS SPECIALIST ST S /DX 1ST TO [address] [place] [address] INFUSION 6 CAT CAT THERAPY/P MED CTR MED CTR ROPHYLAXI WELDING PROCESS SPECIALIST ST WELDING PROCESS SPECIALIST ST S /DX 1ST TO [address] NORMAL 6 CAT CAT SALINE MED CTR MED CTR SOLUTION WELDING PROCESS SPECIALIST ST WELDING PROCESS SPECIALIST ST [address] IN[address] 6 CAT CAT DAPTOMYCI MED CTR MED CTR N 1 MG WELDING PROCESS SPECIALIST ST WELDING PROCESS SPECIALIST ST INJECTION J0[address] ST 6 CAT CAT DAPTOMYCI MED CTR MED CTR N 1 MG WELDING PROCESS SPECIALIST ST WELDING PROCESS SPECIALIST ST INFUSION J7050 ST ST NORMAL 6 CAT CAT SALINE MED CTR MED CTR SOLUTION WELDING PROCESS SPECIALIST ST WELDING PROCESS SPECIALIST [address] [place] [address] INFUSION 6 CAT CAT THERAPY/P MED CTR MED CTR ROPHYLAXI WELDING PROCESS SPECIALIST ST WELDING PROCESS SPECIALIST ST S /DX 1ST TO [address] IN[address] NORMAL 6 CAT CAT SALINE MED CTR MED CTR SOLUTION WELDING PROCESS SPECIALIST ST WELDING PROCESS SPECIALIST ST [address] IN[address] 6 CAT CAT DAPTOMYCI MED CTR MED CTR N 1 MG WELDING PROCESS SPECIALIST ST WELDING PROCESS SPECIALIST ST INJECTION J0[address] ST 6 CAT CAT DAPTOMYCI MED CTR MED CTR N 1 MG WELDING PROCESS SPECIALIST ST WELDING PROCESS SPECIALIST ST INFUSION J7050 ST ST NORMAL 6 CAT CAT SALINE MED CTR MED CTR SOLUTION WELDING PROCESS SPECIALIST ST WELDING PROCESS SPECIALIST [address] [place] [address] INFUSION 6 CAT CAT THERAPY/P MED CTR MED CTR ROPHYLAXI WELDING PROCESS SPECIALIST ST WELDING PROCESS SPECIALIST ST S /DX 1ST TO [address] IN[address] 6 CAT CAT DAPTOMYCI MED CTR MED CTR N 1 MG WELDING PROCESS SPECIALIST [place] [address] INFUSION 6 CAT CTA THERAPY/P MED CTR MED CTR ROPHYLAXI WELDING PROCESS SPECIALIST ST WELDING PROCESS SPECIALIST ST S /DX 1ST TO [address] IN[address] NORMAL 6 CAT CAT SALINE MED CTR MED CTR SOLUTION WELDING PROCESS SPECIALIST ST WELDING PROCESS SPECIALIST ST [address] NORMAL 6 CAT CAT SALINE MED CTR MED CTR SOLUTION WELDING PROCESS SPECIALIST ST WELDING PROCESS SPECIALIST ST [address] COUNT 6 CAT CAT COMPLETE MED CTR MED CTR AUTO&AUTO WELDING PROCESS SPECIALIST ST WELDING PROCESS SPECIALIST ST DIFRNTL WBC SEDIMENTA [address] TION RATE 6 CAT CAT RBC MED CTR MED CTR AUTOMATED WELDING PROCESS SPECIALIST ST WELDING PROCESS SPECIALIST ST BASIC [address] METABOLIC 6 CAT CAT PANEL MED CTR MED CTR CALCIUM WELDING PROCESS SPECIALIST ST WELDING PROCESS SPECIALIST ST TOTAL C-REACTIV [address] ST [address] E PROTEIN 6 CAT CAT MED CTR MED CTR WELDING PROCESS SPECIALIST [place] [address] INFUSION 6 CAT CAT THERAPY/P MED CTR MED CTR ROPHYLAXI WELDING PROCESS SPECIALIST ST WELDING PROCESS SPECIALIST ST S /DX 1ST TO [address] IN[address] 6 CAT CAT DAPTOMYCI MED CTR MED CTR N 1 MG WELDING PROCESS SPECIALIST ST WELDING PROCESS SPECIALIST ST COLLECTIO [address] N VENOUS 6 CAT CAT BLOOD MED CTR MED CTR VENIPUNCT WELDING PROCESS SPECIALIST ST WELDING PROCESS SPECIALIST ST URE CREATINE [address] KINASE 6 CAT CAT TOTAL MED CTR MED CTR WELDING PROCESS SPECIALIST ST WELDING PROCESS SPECIALIST ST INJECTION J0878 ST ST 6 CAT CAT DAPTOMYCI MED CTR MED CTR N 1 MG WELDING PROCESS SPECIALIST [place] [address] INFUSION 6 CAT CAT THERAPY/P MED CTR MED CTR ROPHYLAXI WELDING PROCESS SPECIALIST ST WELDING PROCESS SPECIALIST ST S /DX 1ST TO [address] IN[address] NORMAL 6 CAT CAT SALINE MED CTR MED CTR SOLUTION WELDING PROCESS SPECIALIST ST WELDING PROCESS SPECIALIST ST [address] NORMAL 6 CAT CAT SALINE MED CTR MED CTR SOLUTION WELDING PROCESS SPECIALIST ST WELDING PROCESS SPECIALIST [address] [place] [address] INFUSION 6 CAT CAT THERAPY/P MED CTR MED CTR ROPHYLAXI WELDING PROCESS SPECIALIST ST WELDING PROCESS SPECIALIST ST S /DX 1ST TO [address] IN[address] 6 CAT CAT DAPTOMYCI MED CTR MED CTR N 1 MG WELDING PROCESS SPECIALIST ST WELDING PROCESS SPECIALIST ST INJECTION J0[address] ST 6 CAT CAT DAPTOMYCI MED CTR MED CTR N 1 MG WELDING PROCESS SPECIALIST [place] [address] INFUSION 6 CAT CAT THERAPY/P MED CTR MED CTR ROPHYLAXI WELDING PROCESS SPECIALIST ST WELDING PROCESS SPECIALIST ST S /DX 1ST TO [address] IN[address] NORMAL 6 CAT CAT SALINE MED CTR MED CTR SOLUTION WELDING PROCESS SPECIALIST ST WELDING PROCESS SPECIALIST [address] [place] [address] INFUSION 6 CAT CAT THERAPY/P MED CTR MED CTR ROPHYLAXI WELDING PROCESS SPECIALIST ST WELDING PROCESS SPECIALIST ST S /DX 1ST TO [address] IN[address] NORMAL 6 CAT CAT SALINE MED CTR MED CTR SOLUTION WELDING PROCESS SPECIALIST ST WELDING PROCESS SPECIALIST ST [address] IN[address] 6 CAT CAT DAPTOMYCI MED CTR MED CTR N 1 MG WELDING PROCESS SPECIALIST ST WELDING PROCESS SPECIALIST ST INJECTION J0[address] ST 6 CAT CAT DAPTOMYCI MED CTR MED CTR N 1 MG WELDING PROCESS SPECIALIST ST WELDING PROCESS SPECIALIST ST INFUSION J7050 ST ST NORMAL 6 CAT CAT SALINE MED CTR MED CTR SOLUTION WELDING PROCESS SPECIALIST ST WELDING PROCESS SPECIALIST [address] [place] [address] INFUSION 6 CAT CAT THERAPY/P MED CTR MED CTR ROPHYLAXI WELDING PROCESS SPECIALIST ST WELDING PROCESS SPECIALIST ST S /DX 1ST [place] [address] [place] [address] INFUSION 6 CAT CAT THERAPY/P MED CTR MED CTR ROPHYLAXI WELDING PROCESS SPECIALIST ST WELDING PROCESS SPECIALIST ST S /DX 1ST TO [address] IN[address] 6 CAT CAT DAPTOMYCI MED CTR MED CTR N 1 MG WELDING PROCESS SPECIALIST ST WELDING PROCESS SPECIALIST ST INFUSION J7050 ST ST NORMAL 6 CAT CAT SALINE MED CTR MED CTR SOLUTION WELDING PROCESS SPECIALIST ST WELDING PROCESS SPECIALIST ST 250 CC SBSQ [id number] CARE/DAY 25 PHYSICIAN MINUTES S HOSPITAL [address] [facility] 6 [facility] MANAGEMEN PHYSICIAN T > 30 S MIN SBSQ [address] CARE/DAY 25 PHYSICIAN MINUTES S SBSQ [address] CARE/DAY 35 PHYSICIAN MINUTES S FLUORO [address] [facility] [place] CENTRAL 6 MCKOY VENOUS ASSOCIATE ACCESS S [facility] DEV PLACEMENT ANES 92459 ANESTHESI JJ NON-INVAS 6 A GROUP AGNIESZKA [facility] PRACTICE IMAGING/R ADIATION THERAPY INSJ [facility] [address] [facility] [place] CVC W/O 6 MCKOY SUBQ ASSOCIATE PORT/STRIPPING CUTTER AND WINDER S OF [facility] AGE 7 YR/> DOPPLER [address] ST FAITH MARIYA ECHOCARD 6 CAT PULSE WAVE PHYSICIAN W/SPECTRA S L DISPLAY US VASC 67743 [facility] [place] ACCESS 6 MCKOY SITS VSL ASSOCIATE PATENCY S OF [facility] NDL ENTRY ECHO 355[address] ST FAITH MARIYA TRANSESOP 6 CAT HAG R-T 2D W/PRB PHYSICIAN IMG S ACQUISJ I&R DOP 526[address] [facility] ECHOCARD 6 CAT COLOR FLOW PHYSICIAN VELOCITY S MAPPING FLUORO [id number] ST ST SUP VENA 6 CAT CAT C[facility]OW [facility] CONTRST E EDGE E EDGE GUID INSERTION [id number] ST ST INFUSION 6 CAT CAT DEVC SU[facility] VENA CAVA E EDGE E EDGE PERQ ECHO [address] T[facility] R-T 6 CAT CAT 2D W/WOM-MOD PHYSICIAN PHYSICIAN E COMPL S S SPEC&COLR D INITIAL 14488 [facility] INPATIENT 6 CAT CONSULT NEW/ESTAB PHYSICIAN PT 40 S MIN CULTURE 89749 [facility] BACTERIAL 6 [facility] INC INC QUANTTATI VE COLONY COUNT URINE COMPREHEN 23452 [facility] SIVE 6 [facility] METABOLIC INC INC PANEL BLOOD 55786 [facility] COUNT 6 [facility] COMPLETE INC INC AUTO&AUTO DIFRNTL WBC URNLS DIP 53259 [facility] 6 MEM [facility] STICK/TAB INC [place] [address] [facility] THERAPY/P INC INC ROPHYLAXI S /DX 1ST TO 1 [place] [address] [facility] STREPTOCO 6 [facility] CCUS INC INC GROUP A CUL BACT 32301 [facility] XCPT 6 [facility] URINE INC INC BLOOD/STO OL AEROBIC ISOL SKIN TEST 05285 [facility] 5 CAT [place]AR[place]INA TUBERCULO SIS PHYSICIAN [place] [address] [facility] SURG 5 CAT [facility] PATHOLOGY MED CTR GROSS&RUPINDER ROSCOPIC EXAM 47018 [facility] BIOPHYSIC 2 MATERNAL AND AL PROFILE MED W/O NON-STRES S TESTING US PREG 51431 [facility] UTERUS 2 MATERNAL AND W/DETAIL MED MAGUI 1ST GESTATION US PREG 90380 [facility] UTERUS 1 MATERNAL DON W/DETAIL ME MAGUI 1ST GESTATION Encounters Encounter Start End Date Code Location Performer Type Date HOSPITAL ST - 7 7 CAT OUTPATIEN T [facility] 90888 GOOD 6 6 [facility] T VISIT HIGH/URGE NT SEVERITY EMERGENCY 42400 QUALIFIED POLICA[facility] DEPT 6 6 O RUPINDER VISIT EMERGENCY HIGH SPECIALI SEVERITY& THREAT [facility] GOOD - 6 6 [facility] OUTPATI HOSP T EMERGENCY 29657 JEWELS LICONA 6 6 PHYSICIAN DEPARTMEN S, [facility] T VISIT HIGH/URGE NT SEVERITY [facility] [place] - 6 6 [facility] OUTPATIEN INC T EMERGENCY 42728 [facility] 6 6 [facility] T VISIT LIMITED/M INOR PROB EMERGENCY 58633 [facility] DEPT 6 6 EMERGENCY GRE VISIT HIGH PHYSICIAN SEVERITY& S THREAT [facility] ST - 6 6 CAT OUTPATIEN MED CTR T WELDING PROCESS SPECIALIST [facility] ST - 6 6 CAT OUTPATIEN MED CTR T [facility] - 6 6 CAT OUTPATIEN MED CTR T [facility] - 6 6 CAT OUTPATIEN MED CTR T [facility] - 6 6 CAT OUTPATIEN MED CTR T [facility] - 6 6 CAT OUTPATIEN MED CTR T [facility] - 6 6 CAT OUTPATIEN MED CTR T [facility] - 6 6 CAT OUTPATIEN MED CTR T [facility] - 6 6 CAT OUTPATIEN MED CTR T [facility] ST - 6 6 CAT OUTPATIEN MED CTR T [facility] 95459 INFECTIOU LOMELI OUTPATIEN 6 6 S DISEASE AGNIESZKA T VISIT [address] [place] [address] ST - 6 6 CAT OUTPATIEN MED CTR T [facility] ST - 6 6 CAT OUTPATIEN MED CTR T [facility] - 6 6 CAT OUTPATIEN MED CTR T [facility] - 6 6 CAT OUTPATIEN MED CTR T [facility] - 6 6 CAT OUTPATIEN MED CTR T [facility] - 6 6 CAT OUTPATIEN MED CTR T [facility] - 6 6 CAT OUTPATIEN MED CTR T [facility] ST - [address] [facility] - 6 6 [facility] OUTPATIEN INC T EMERGENCY 52204 [facility] 6 6 [facility] INC T VISIT LOW/MODER SEVERITY EMERGENCY 02125 JEWELS HUNTER 6 [address] [facility] T VISIT HIGH/URGE NT SEVERITY EMERGENCY 55447 JEWELS GARCIA 6 [address] [facility] T VISIT HIGH/URGE NT SEVERITY EMERGENCY 23274 [facility] 6 6 [facility] INC T VISIT LOW/MODER SEVERITY EMERGENCY 68517 JEWELS GARCIA 6 [address] [facility] T VISIT MODERATE SEVERITY HOSPITAL [facility] - 6 6 [facility]
--- OUTSIDE RECORDS SUMMARY | 2017-04-08 06:36 | External Medical Summary Rpt ---
Author Author , LIBAN Organization LIBAN Address Unknown Phone [email or web address] Care Team Providers Care Testing Coordinator Name Role Phone [facility] Unavailable [facility], [facility] TOBY, TOBY Unavailable Unavailable PRETTY JAM, PRETTY JAM Unavailable Unavailable [facility] Unavailable Unavailable PHYSICIANS, [facility] VIANNEY MERAZ, VIANNEY MARIYA Unavailable Unavailable DANYELL, DANYELL Unavailable Unavailable DALE RUPINDER, DALE Unavailable Unavailable RUPINDER [facility], Unavailable Unavailable [facility] Unavailable Unavailable INC, [facility] HARTIG KAROLINA, HARTIG Unavailable Unavailable KAROLINA LYNCH AND, LYNCH Unavailable Unavailable AND HERNANDEZ LIVAN, HERNANDEZ LIVAN Unavailable Unavailable ANGELA MCKOY, ANGELA Unavailable Unavailable MCKOY LAMBERS DON, LAMBERS Unavailable Unavailable DON [facility], [facility], Unavailable Unavailable [facility], [facility], Unavailable [facility]available [facility], [facility] LOMELI JOH, Unavailable Unavailable LOMELI JOH POLICASTRO RUPINDER, Unavailable Unavailable POLICASTRO RUPINDER [facility] Unavailable Unavailable [facility], [facility] Unavailable Unavailable [facility], [facility] RENIVÁN TURCIOS, RENIVÁN Unavailable Unavailable KAROLINA AARON, JJ Unavailable Unavailable AGNIESZKA HESS, Unavailable Unavailable MARIA A HEArnold PATEL GUR, PATEL Unavailable Unavailable GUR SARAHI NIEVES, Unavailable Unavailable SARAHI JOSHUA, JOSHUA Unavailable Unavailable [facility] Unavailable Unavailable [facility], [facility], Unavailable Unavailable [facility] Unavailable Unavailable SANDER OPERATOR , [facility] SANDER OPERATOR [facility] Unavailable Unavailable PHYSICIANS, [facility] [...] EDGE SPECIFIED R5381 OTHER 07-06-2016 [facility] MALAISE [facility] R5383 OTHER 07-06-2016 ST FATIGUE [facility] O031 DELAY/EXCES 04-23-2016 ANESTHESIA S [facility] FOLLOW PRACTICE INCMPL SPONT N939 ABNORMAL 04-22-2016 QUALIFIED UTERINE & EMERGENCY VAGINAL SPECIALI BLEEDING UNSPECIFIED R102 PELVIC AND 04-22-2016 QUALIFIED PERINEAL EMERGENCY PAIN SPECIALI R7889 FINDING OTH 04-22-2016 QUALIFIED SPEC EMERGENCY SUBSTANCES SPECIALI NOT NORM FOUND BLOOD Z8614 PERSONAL HX 04-22-2016 [facility] RSIST STAPH INFECTION Z880 ALLERGY 04-22-2016 [facility] Z882 ALLERGY 04-22-2016 [facility] S STATUS N898 OTHER 04-21-2016 [facility] SPECIFIED [facility], NONINFLAMMA PLLC TORY DISORDERS VAGINA O036 DELAY/EXCES 04-21-2016 [facility] FLW INC CMPL/UNS SPONT [id number] CARRIER/GERTRUDIS 04-21-2016 [facility] METHICILLIN RSIST STAPH Z720 TOBACCO USE 04-21-2016 [facility] R799 ABNORMAL 04-19-2016 ST FINDING OF CAT BLOOD PHYSICIANS CHEMISTRY UNSPECIFIED M1288 OTHER 04-18-2016 [facility] ARTHROPATHI ES NEC OTHER SPEC SITE M609 MYOSITIS 04-18-2016 RAD[facility] UNSPECIFIED ASSOCIATES OF NOT 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 INSUFFICIEN CY B1920 UNS VIRAL 04-15-2016 [facility]ENCY WITHOUT PHYSICIANS HEPATIC COMA I330 ACUTE AND 04-15-2016 [facility] SUBACUTE [facility] INFECTIVE PHYSICIANS ENDOCARDITI S M4650 OTHER 04-15-2016 [facility] SPONDYLOPAT PHYSICIANS HIES SITE UNSPECIFIED J56574 SPONDYLOSIS 04-15-2016 [facility] W/O ASSOCIATES MYELOPATH/R OF [facility] ADICULOPATH Y LUMB RGN R7881 BACTEREMIA 04-15-2016 [facility] PHYSICIANS B1710 ACUTE 03-27-2016 HEPATITIS C CAT WITHOUT MED CTR SANDER OPERATOR HEPATIC ST COMA L69478 OTHER LONG 02-29-2016 ST TERM CAT CURRENT MED CTR SANDER OPERATOR DRUG ST THERAPY A499 BACTERIAL 02-21-2016 ST INFECTION CAT UNSPECIFIED PHYSICIANS 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 INSUFFICIEN CY I38 ENDOCARDITI 02-15-2016 ANESTHESIA S VALVE GROUP UNSPECIFIED PRACTICE Z452 ENCOUNTER 02-15-2016 RADIOLOGY ADJUSTMENT& ASSOCIATES [facility] VASCULAR ACCESS DEVICE Z331 02-11-2016 [facility] CAT INCIDENTAL PHYSICIANS A4102 SEPSIS D/T 02-10-2016 ST METHICILLIN CAT RSIST HEALTHCARE STAPH EDGE I2690 SEPTIC 02-10-2016 ST PULMONARY CAT EMBO W/O HEALTHCARE ACUTE COR EDGE PULMONALE V69896 PRE-EXISTIN 02-10-2016 ST G ESSENTIAL CAT HTN COMP HEALTHCARE PREG FIRST EDGE TRI Q89856 OTH 02-10-2016 ST MATERNAL CAT INF & HEALTHCARE PARASIT DZ EDGE COMP PREG 1ST TRI A45291 DRUG USE 02-10-2016 ST COMPLICATIN CAT G [...] EXAMINATION CAT FOR PHYSICIANS PULMONARY TUBERCULOSI S 82351 TWIN 07-14-2014 ST [facility] UNSPECIFIED MED CTR TO EPISODE OF CARE 42958 OT CURRENT 08-09-2011 [facility] MAT CONDS MATERNAL CLASSIFIABL MED E ELSW ANTPRTM 60147 DECR 08-09-2011 [facility] MOVMNTS MATERNAL MGMT MOTH MED ANTPRTM COND/COMP 87830 08-09-2011 [facility] DISTRESS MATERNAL AFFECT MED MANAGEMENT MOTH ANTEPARTUM V239 UNSPECIFIED 08-09-2011 [facility] HIGH-RISK MATERNAL MED 04970 UNS 04-17-2011 [facility] ABNORM MGMT MATERNAL MOTH [...] 20 IN 0 C. MG TA B PA 57 05 06 30 30 00 GR [...] NS IN E C. QU 16 01 30 30 00 GR Ac ET [...] 17 77 UN 1 57 TY NAN BERNARD TE S, 20 IN 0 C. MG TA B Procedures Procedure [place] [address] FREE 7 CAT CAT THYROXINE HEALTH[place] [address] THYROID 7 CAT CAT STIMULATI NG HEALTHCAR HEALTHCAR [place] [address] TRIIODOTH 7 CAT CAT YRONINE T3 FREE HEALTHCAR HEALTHCAR E EDGE E EDGE BLOOD [address] COUNT 7 CAT CAT COMPLETE AUTOMATED HEALTHCAR HEALTHCAR E EDGE E EDGE COMPREHEN [address] SIVE 7 CAT CAT METABOLIC PANEL HEALTH[place] [address] [facility] SURG 6 [facility] PATHOLOGY [facility] HOSP GROSS&RUPINDER ROSCOPIC EXAM INJECTION J2250 [facility] HCL PER 1 MG BLOOD 42582 [facility] COUNT 6 [facility] COMPLETE [facility]OSP HOSP AUTOMATED INJECTION J2704 [facility] PROPOFOL 6 [facility] 10 MG HOSP HOSP INJECTION J3010 [facility] FENTANYL 6 [facility]OSP 0.1 MG INJECTION J2210 [facility] HOSP ONOVINE MALEATE UP TO 0.2 MG INJECTION J2590 [facility] OXYTOCIN 6 [facility] [place] [address] [facility] INCOMPLET 6 [facility] E HOSP HOSP ANY TRIMESTER SURGICAL GONADOTRO 97253 [facility] PIN 6 [facility] CHORIONIC [facility]P HOSP QUANTITAT BRENNON SBSQ 12778 [facility] OBSERVATI 6 [facility] ON [facility]OSP HOSP CARE/DAY 15 MINUTES US PREG 71922 [facility] UTERUS 6 [facility] REAL TIME HOSP HOSP W/IMAGE DCMTN TRANSVAG INJECTION J2405 [facility] 6 [facility] ONDANSETR [facility] HOSP ON HCL PER 1 MG INJECTION J2765 [facility] 6 [facility] METOCLOPR [facility]OSP HOSP AMIDE HCL UP TO 10 MG COLLECTIO 45271 [facility] N VENOUS 6 [facility] BLOOD HOSP HOSP VENIPUNCT URE ANESTHESI 71151 [facility] A 6 [facility] INCOMPLET HOSP HOSP E/MISSED ANESTHESI 32714 ANESTHESI DANYELL A VAGINAL 6 A GROUP PRACTICE PROCEDURE W/[place] [address] [facility] INFUSION 6 [facility] HYDRATION [facility]OSP HOSP INITIAL 31 MIN-1 [place] [address] [facility] INFUSION 6 [facility]P EACH ADDITIONA L HOUR COLLECTIO 37713 [facility] N VENOUS 6 [facility] [place] [address] [facility] LACTATE 6 [facility] HOSP HOSP SMR PRIM 18381 [facility] SRC WET 6 [facility] M[facility]OS[facility] HOSP NFCT AGT IADNA 33130 [facility] CHLAMYDIA 6 [facility] HOSP HOSP TRACHOMAT IS AMPLIFIED PROBE TQ BLOOD 26848 [facility] TYPING 6 [facility] SEROLOGIC HOSP HOSP RH (D) GONADOTRO 44580 [facility] PIN 6 [facility] CHORIONIC HOSP HOSP QUANTITAT BREN[place] BLOOD 99693 [facility] COUNT 6 [facility] COMPLETE HOSP HOSP AUTO&AUTO DIFRNTL WBC INITIAL 56449 [facility] OBSERVATI 6 [facility] ON [facility]OSP HOSP CARE/DAY 30 MINUTES CULTURE 99263 [facility] BACTERIAL 6 [facility] BLOOD HOSP HOSP AEROBIC W/ID ISOLATES URNLS DIP 03136 [facility] 6 [facility] STICK/TAB HOSP HOSP LET RGNT AUTO W/O MICROSCOP Y URINE 19251 [facility] 6 [facility] TEST HOSP HOSP VISUAL COLOR CMPRSN METHS ANTIBODY 63062 [facility] SCREEN 6 [facility] RBC EACH HOSP HOSP SERUM TECHNIQUE BLOOD 16069 [facility] TYPING 6 [facility] SEROLOGIC HOSP HOSP ABO IADNA 47708 [facility] NEISSERIA 6 [facility] HOSP HOSP GONORRHOE AE AMPLIFIED PROBE TQ BASIC 66201 [facility] METABOLIC 6 [facility] PANEL HOSP HOSP CALCIUM IONIZED INITIAL 42612 [facility] INPATIENT 6 CAT AM CONSULT NEW/ESTAB PHYSIC[place] [address] [place] [address] RADIOLOGY PRETTY LINDA GUIDANCE 6 NEEDLE ASSOCIATE PLACEMENT S OF [facility] SBSQ 86565 [facility] 6 CLINIC, CARE/DAY INC 15 MINUTES BIOPSY 20196 RADIOLOGY PRETTY JAM MUSCLE 6 PERCUTANE ASSOCIATE OUS S OF [facility] NEEDLE ECHO [address]056 ST ZALKIND TTHRC R-T 6 CAT MIRANDA 2D W/WOM-MOD PHYSICIAN E COMPL S SPEC&COLR D INITIAL 52484 [facility] INPATIENT 6 CLINIC, CLINIC, CONSULT INC INC NEW/ESTAB PT 55 MIN MRI 38155 RADIOLOGY BILLY SCO SPINAL 6 CANAL ASSOCIATE LUMBAR S OF [facility] W/O & W/CONTR MATRL SEDIMENTA [address] TION RATE 6 CAT [place] RBC MED CTR MED CTR AUTOMATED SANDER OPERATOR ST SANDER OPERATOR ST CULTURE [address] BACTERIAL 6 CAT [place] BLOOD MED CTR MED CTR AEROBIC SANDER OPERATOR ST SANDER OPERATOR ST W/ID ISOLATES BLOOD [address] COUNT 6 CAT [place] COMPLETE MED CTR MED CTR AUTOMATED SANDER OPERATOR ST SANDER OPERATOR ST COLLECTIO [address] N VENOUS 6 CAT CAT BLOOD MED CTR MED CTR VENIPUNCT SANDER OPERATOR ST SANDER OPERATOR ST URE C-REACTIV [address] PROTEIN 6 CAT CAT MED CTR MED CTR SANDER OPERATOR ST SANDER OPERATOR ST HEPATIC [address] FUNCTION 6 CAT CAT PANEL MED CTR MED CTR SANDER [place] [address] INFUSION 6 CAT CAT THERAPY/P MED CTR MED CTR ROPHYLAXI SANDER OPERATOR ST SANDER OPERATOR ST S /DX 1ST TO [address] IN[address] 6 CAT CAT DAPTOMYCI MED CTR MED CTR N [address] SANDER OPERATOR ST INFUSION J7050 ST ST NORMAL 6 CAT CAT SALINE MED CTR MED CTR SOLUTION SANDER OPERATOR ST SANDER OPERATOR ST [address] NORMAL 6 CAT CAT SALINE MED CTR MED CTR SOLUTION SANDER OPERATOR ST SANDER OPERATOR [address] 6 CAT CAT DAPTOMYCI MED CTR MED CTR N [address] [place] [address] INFUSION 6 CAT CAT THERAPY/P MED CTR MED CTR ROPHYLAXI SANDER OPERATOR ST SANDER OPERATOR ST S /DX 1ST TO [address] [place] [address] INFUSION 6 CAT CAT THERAPY/P MED CTR MED CTR ROPHYLAXI SANDER OPERATOR ST SANDER OPERATOR ST S /DX 1ST TO [address] IN[address] 6 CAT CAT DAPTOMYCI MED CTR MED CTR N [address] SANDER OPERATOR ST INFUSION J7050 ST ST NORMAL 6 CAT CAT SALINE MED CTR MED CTR SOLUTION SANDER OPERATOR ST SANDER OPERATOR ST [address] NORMAL 6 CAT CAT SALINE MED CTR MED CTR SOLUTION SANDER OPERATOR ST SANDER OPERATOR ST [address] IN[address] 6 CAT CAT DAPTOMYCI MED CTR MED CTR N [address] [place] [address] INFUSION 6 CAT CAT THERAPY/P MED CTR MED CTR ROPHYLAXI SANDER OPERATOR ST SANDER OPERATOR ST S /DX 1ST TO [address] INFUSION 6 CAT CAT THERAPY/P MED CTR MED CTR ROPHYLAXI SANDER OPERATOR ST SANDER OPERATOR ST S /DX 1ST TO [address] N VENOUS 6 CAT CAT BLOOD MED CTR MED CTR VENIPUNCT SANDER OPERATOR ST SANDER OPERATOR ST URE INJECTION J0878 ST ST 6 CAT CAT DAPTOMYCI MED CTR MED CTR N [address] SANDER OPER[address]LO[address] COUNT 6 CAT CAT COMPLETE MED CTR MED CTR AUTO&AUTO SANDER OPERATOR ST SANDER OPERATOR ST DIFRNTL WBC SEDIMENTA [address] TION RATE 6 CAT CAT RBC MED CTR MED CTR AUTOMATED SANDER OPERATOR ST SANDER OPERATOR ST INFUSION J7050 ST ST NORMAL 6 CAT CAT SALINE MED CTR MED CTR SOLUTION SANDER OPERATOR ST SANDER OPERATOR ST [address] KINASE 6 CAT CAT TOTAL MED CTR MED CTR SANDER OPERATOR ST SANDER OPERATOR ST COMPREHEN [address] SIVE 6 CAT CAT METABOLIC MED CTR MED CTR PANEL SANDER OPERATOR ST SANDER OPERATOR ST C-REACTIV [address] E PROTEIN 6 CAT CAT MED CTR MED CTR SANDER OPERATOR ST SANDER OPERATOR ST INFUSION J7050 ST ST NORMAL 6 CAT CAT SALINE MED CTR MED CTR SOLUTION SANDER OPERATOR ST SANDER OPER[address] 6 CAT CAT DAPTOMYCI MED CTR MED CTR N [address] [place] [address] INFUSION 6 CAT CAT THERAPY/P MED CTR MED CTR ROPHYLAXI SANDER OPERATOR ST SANDER OPERATOR ST S /DX 1ST [place] [address] [place] [address] INFUSION 6 CAT CAT THERAPY/P MED CTR MED CTR ROPHYLAXI SANDER OPERATOR ST SANDER OPERATOR ST S /DX 1ST [place] [address] [place] [address] INFUSION 6 CAT CAT THERAPY/P MED CTR MED CTR ROPHYLAXI SANDER OPERATOR ST SANDER OPERATOR ST S /DX 1ST TO [address] IN[address] 6 CAT CAT DAPTOMYCI MED CTR MED CTR N [address] SANDER OPERATOR ST INFUSION J70[address] ST NORMAL 6 CAT CAT SALINE MED CTR MED CTR SOLUTION SANDER OPERATOR ST SANDER OPERATOR ST [address] NORMAL 6 CAT CAT SALINE MED CTR MED CTR SOLUTION SANDER OPERATOR ST SANDER OPER[address] 6 CAT CAT DAPTOMYCI MED CTR MED CTR N [address] [place] [address] INFUSION 6 CAT CAT THERAPY/P MED CTR MED CTR ROPHYLAXI SANDER OPERATOR ST SANDER OPERATOR ST S /DX 1ST TO [address] KINASE MB 6 CAT CAT FRACTION MED CTR MED CTR ONLY SANDER OPERATOR ST SANDER OPERATOR ST INJECTION J0878 ST ST 6 CAT CAT DAPTOMYCI MED CTR MED CTR N [address] SANDER OPERATOR ST BLOOD [address] COUNT 6 CAT CAT COMPLETE MED CTR MED CTR AUTO&AUTO SANDER OPERATOR ST [place] [address] INFUSION 6 CAT CAT THERAPY/P MED CTR MED CTR ROPHYLAXI SANDER OPERATOR ST SANDER OPERATOR ST S /DX 1ST TO [address] NORMAL 6 CAT CAT SALINE MED CTR MED CTR SOLUTION SANDER OPERATOR ST SANDER OPERATOR ST [address] METABOLIC 6 CAT CAT PANEL MED CTR MED CTR CALCIUM SANDER OPERATOR ST SANDER OPERATOR ST TOTAL SEDIMENTA [address] TION RATE 6 CAT CAT RBC MED CTR MED CTR AUTOMATED SANDER OPERATOR ST SANDER OPERATOR ST C-REACTIV [address] E PROTEIN 6 CAT CAT MED CTR MED CTR SANDER OPERATOR ST SANDER OPERATOR ST INFUSION J7050 ST ST NORMAL 6 CAT CAT SALINE MED CTR MED CTR SOLUTION SANDER OPERATOR ST SANDER OPERATOR [address] [place] [address] INFUSION 6 CAT CAT THERAPY/P MED CTR MED CTR ROPHYLAXI SANDER OPERATOR ST SANDER OPERATOR ST S /DX 1ST TO [address] IN[address] 6 CAT CAT DAPTOMYCI MED CTR MED CTR N [address] SANDER OPERATOR ST INJECTION J0[address] 6 CAT CAT DAPTOMYCI MED CTR MED CTR N [address] [place] [address] INFUSION 6 CAT CAT THERAPY/P MED CTR MED CTR ROPHYLAXI SANDER OPERATOR ST SANDER OPERATOR ST S /DX 1ST TO [address] NORMAL 6 CAT CAT SALINE MED CTR MED CTR SOLUTION SANDER OPERATOR ST SANDER OPERATOR ST [address] NORMAL 6 CAT CAT SALINE MED CTR MED CTR SOLUTION SANDER OPERATOR ST SANDER OPERATOR [address] [place] [address] INFUSION 6 CAT CAT THERAPY/P MED CTR MED CTR ROPHYLAXI SANDER OPERATOR ST SANDER OPERATOR ST S /DX 1ST TO [address] IN[address] 6 CAT CAT DAPTOMYCI MED CTR MED CTR N [address] SANDER OPERATOR ST INJECTION J0[address] 6 CAT CAT DAPTOMYCI MED CTR MED CTR N [address] SANDER OPERATOR ST INFUSION J[address] ST NORMAL 6 CAT CAT SALINE MED CTR MED CTR SOLUTION SANDER OPERATOR ST SANDER OPER[address] NORMAL 6 CAT CAT SALINE MED CTR MED CTR SOLUTION SANDER OPERATOR ST SANDER OPER[address] 6 CAT CAT DAPTOMYCI MED CTR MED CTR N [address] [place] [address] INFUSION 6 CAT CAT THERAPY/P MED CTR MED CTR ROPHYLAXI SANDER OPERATOR ST SANDER OPERATOR ST S /DX 1ST TO [address] IN[address] 6 CAT CAT DAPTOMYCI MED CTR MED CTR N [address] [place] [address] INFUSION 6 CAT CAT THERAPY/P MED CTR MED CTR ROPHYLAXI SANDER OPERATOR ST SANDER OPERATOR ST S /DX 1ST TO [address] IN[address] NORMAL 6 CAT CAT SALINE MED CTR MED CTR SOLUTION SANDER OPERATOR ST SANDER OPERATOR ST [address] NORMAL 6 CAT CAT SALINE MED CTR MED CTR SOLUTION SANDER OPERATOR ST SANDER OPERATOR ST [address] TION RATE 6 CAT CAT RBC MED CTR MED CTR AUTOMATED SANDER OPERATOR ST SANDER OPERATOR ST CREATINE [address] KINASE 6 CAT CAT TOTAL MED CTR MED CTR SANDER OPERATOR ST SANDER OPERATOR ST BASIC [address] METABOLIC 6 CAT CAT PANEL MED CTR MED CTR CALCIUM SANDER OPERATOR [place] [address] INFUSION 6 CAT CAT THERAPY/P MED CTR MED CTR ROPHYLAXI SANDER OPERATOR ST SANDER OPERATOR ST S /DX 1ST TO [address] N VENOUS 6 CAT CAT BLOOD MED CTR MED CTR VENIPUNCT SANDER OPERATOR ST SANDER OPERATOR ST URE INJECTION J0878 ST ST 6 CAT CAT DAPTOMYCI MED CTR MED CTR N [address] SANDER OPERATOR ST BLOOD [address] COUNT 6 CAT CAT COMPLETE MED CTR MED CTR AUTO&AUTO SANDER OPERATOR ST SANDER OPERATOR ST DIFRNTL WBC C-REACTIV [address] E PROTEIN 6 CAT CAT MED CTR MED CTR SANDER OPERATOR ST SANDER OPERATOR ST INJECTION J0[address] ST 6 CAT CAT DAPTOMYCI MED CTR MED CTR N [address] [place] [address] INFUSION 6 CAT CAT THERAPY/P MED CTR MED CTR ROPHYLAXI SANDER OPERATOR ST SANDER OPERATOR ST S /DX 1ST TO [address] NORMAL 6 CAT CAT SALINE MED CTR MED CTR SOLUTION SANDER OPERATOR ST SANDER OPERATOR ST [address] NORMAL 6 CAT CAT SALINE MED CTR MED CTR SOLUTION SANDER OPERATOR ST SANDER OPERATOR [address] [place] [address] INFUSION 6 CAT CAT THERAPY/P MED CTR MED CTR ROPHYLAXI SANDER OPERATOR ST SANDER OPERATOR ST S /DX 1ST TO [address] IN[address] 6 CAT CAT DAPTOMYCI MED CTR MED CTR N [address] [place] [address] INFUSION 6 CAT CAT THERAPY/P MED CTR MED CTR ROPHYLAXI SANDER OPERATOR ST SANDER OPERATOR ST S /DX 1ST TO [address] IN[address] 6 CAT CAT DAPTOMYCI MED CTR MED CTR N [address] SANDER OPERATOR ST INFUSION J70[address] ST NORMAL 6 CAT CAT SALINE MED CTR MED CTR SOLUTION SANDER OPERATOR ST SANDER OPERATOR ST [address] NORMAL 6 CAT CAT SALINE MED CTR MED CTR SOLUTION SANDER OPERATOR ST SANDER OPERATOR [address] [place] [address] INFUSION 6 CAT CAT THERAPY/P MED CTR MED CTR ROPHYLAXI SANDER OPERATOR ST SANDER OPERATOR ST S /DX 1ST TO [address] IN[address] 6 CAT CAT DAPTOMYCI MED CTR MED CTR N [address] [place] [address] INFUSION 6 CAT CAT THERAPY/P MED CTR MED CTR ROPHYLAXI SANDER OPERATOR ST SANDER OPERATOR ST S /DX 1ST TO [address] IN[address] 6 CAT CAT DAPTOMYCI MED CTR MED CTR N [address] SANDER OPERATOR ST INFUSION J70[address] ST NORMAL 6 CAT CAT SALINE MED CTR MED CTR SOLUTION SANDER OPERATOR ST SANDER OPERATOR ST [address] NORMAL 6 CAT CAT SALINE MED CTR MED CTR SOLUTION SANDER OPERATOR ST SANDER OPERATOR ST [address] IN[address] 6 CAT CAT DAPTOMYCI MED CTR MED CTR N [address] [place] [address] INFUSION 6 CAT CAT THERAPY/P MED CTR MED CTR ROPHYLAXI SANDER OPERATOR ST SANDER OPERATOR ST S /DX 1ST TO 1 HR [facility] [address] CARE/DAY 25 PHYSICIAN MINUTES S HOSPITAL [address] [facility] DISCHARGE [address] [place] [address] MANAGEMEN PHYSICIAN T > 30 S MIN [facility] [address] CARE/DAY 25 PHYSICIAN MINUTES S [facility] [address] CARE/DAY 35 PHYSICIAN MINUTES S DOPPLER [address] [facility] FAITH MARIYA ECHOCARD 6 CAT PULSE WAVE PHYSICIAN W/SPECTRA S L DISPLAY INSJ [facility] 46791 RADIOLOGY [place] CVC W/O 6 MCKOY SUBQ ASSOCIATE PORT/FIN[employer] SERVICES INTERNSHIP S OF [facility] AGE 7 YR/> ANES 59928 ANESTHESI JJ NON-INVAS 6 A [facility] PRACT[facility] IMAGING/R ADIATION THERAPY ECHO [address]2715 ST FAITH MARIYA TRANSESOP 6 CAT HAG R-T 2D W/PRB PHYSICIAN IMG S ACQUISJ I&R DOP 37385 ST FAITH MARIYA ECHOCARD 6 CAT COLOR FLOW PHYSICIAN VELOCITY [place] 11198 RADIOLOGY [place] ACCESS 6 MCKOY SITS VSL ASSOCIATE PATENCY S OF [facility] NDL ENTRY FLUORO 22870 RADIOLOGY [place] CENTRAL 6 MCKOY VENOUS ASSOCIATE ACCESS S OF [facility] DEV PLACEMENT FLUORO [id number] ST ST SUP VENA 6 CAT [place] CAVA LOW [facility] CONTRST E EDGE E EDGE GUID INSERTION [id number] ST ST INFUSION 6 CAT CAT DEVC SUPERIOR HEALTHCAR HEALTHCAR VENA CAVA E EDGE E EDGE PERQ ECHO [address] TTHRC R-T 6 CAT [place] 2D W/WOM-MOD PHYSICIAN PHYSICIAN E COMPL S S SPEC&COLR D INITIAL 82165 [facility] INPATIENT 6 CAT CONSULT NEW/ESTAB PHYSICIAN PT 40 S MIN CULTURE 52113 [facility] BACTERIAL 6 [facility] [place] [address] [facility] INFUSION 6 [facility] THERAPY/P INC INC ROPHYLAXI S /DX 1ST TO 1 HR BLOOD 14072 [facility] COUNT 6 [facility] COMPLETE INC INC AUTO&AUTO DIFRNTL WBC URNLS DIP 72008 [facility] 6 [facility] STICK/TAB INC INC LET REAGENT AUTO MICROSCOP Y COMPREHEN 97174 [facility] SIVE 6 [facility] [place] [address] [facility] STREPTOCO 6 [facility] CCUS INC INC GROUP A CUL BACT 83346 [facility] XCPT [facility] URINE INC INC BLOOD/STO OL AEROBIC ISOL SKIN TEST 33635 [facility] 5 CAT TURCIOS TUBERCULO SIS PHYSICIAN INTRADERM S [place]EL V [address] [facility] SURG 5 CAT HESS PATHOLOGY MED CTR GROSS&RUPINDER ROSCOPIC EXAM 83117 [facility] BIOPHYSIC 2 MATERNAL AND AL PROFILE MED W/O NON-STRES S TESTING [place] PREG 08137 [facility] UTERUS 2 MATERNAL AND W/DETAIL MED MAGUI 1ST GESTATION US PREG 55029 [facility] UTERUS 1 MATERNAL DON W/DETAIL ME MAGUI 1ST GESTATION Encounters Encounter Start End Date Code Location Performer Type Date [facility] - 7 7 CAT OUTPATIEN T [facility] 14393 [facility] HIGH/URGE NT SEVERITY EMERGENCY 93253 [facility] DE[facility] 6 6 O RUPINDER VISIT EMERGENCY HIGH SPECIALI SEVERITY& THREAT [facility] GOOD - 6 6 [facility] T EMERGENCY 84772 JEWELS HERNANDEZ LIVAN 6 6 PHYSICIAN DEPARTMEN S, PLLC T VISIT HIGH/URGE NT SEVERITY EMERGENCY 74120 [facility] 6 6 [facility] DEPARTMEN INC T VISIT LIMITED/M INOR [facility] - 6 6 [facility] T EMERGENCY 84949 [facility] DEPT 6 6 EMERGENCY GRE VISIT HIGH PHYSICIAN SEVERITY& S THREAT [facility] ST - 6 6 CAT OUTPATIEN MED CTR T [facility] - 6 6 CAT OUTPATIEN MED CTR T [facility] - 6 6 CAT OUTPATIEN MED CTR T [facility] - 6 6 CAT OUTPATIEN MED CTR T [facility] - 6 6 CAT OUTPATIEN MED CTR T [facility] - 6 6 CAT OUTPATIEN MED CTR T [facility] - 6 6 CAT OUTPATIEN MED CTR T [facility] - 6 6 CAT OUTPATIEN MED CTR T [facility] - 6 6 CAT OUTPATIEN MED CTR T [facility] - 6 6 CAT OUTPATIEN MED CTR T [facility] [address] [facility] S DISEASE AGNIESZKA T VISIT 15 [facility] [facility] - 6 6 [facility] OUTPATIEN [facility] T [facility] - 6 6 CAT OUT[facility]IEN [facility] T [facility] - 6 6 CAT OUTPATI[facility] - 6 6 CAT OUTPATIEN [facility] - 6 6 CAT OUTPATIEN [facility] - 6 6 CAT OUTPATIEN [facility] - 6 6 CAT OUTPATIEN [facility] - 6 6 [facility] EMERGENCY [id number] [facility] 6 [facility] DEPART[facility] T VISIT LOW/MODER SEVERITY EMERGENCY [id number] JEWELS HUNTER 6 6 PHYSICIAN YOHANA PIPERC T VISIT HIGH/URGE NT SEVERITY [facility]OSP[facility] - 6 6 [facility] T EMERGENCY [id number] JEWELS GARCIA 6 6 PHYSICIAN [facility] [employer] T VISIT HIGH/URGE NT SEVERITY EMERGENCY [id number] JEWELS GARCIA 6 6 PHYSICIAN [facility] [employer] T VISIT MODERATE SEVERITY [facility] T EMERGENCY [id number] [facility] 6 6 [facility] DEPART[facility] INC T VISIT LOW/MODER SEVERITY
--- OUTSIDE RECORDS SUMMARY | 2017-04-08 06:36 | External Medical Summary Rpt ---
Author Author , LIBAN Organization LIBAN Address Unknown Phone [email or web address] Care Team Providers Care Area Field Person Name Role Phone [facility] Unavailable Unavailable [facility], [facility] TOBY, TOBY Unavailable Unavailable PRETTY JAM, PRETTY JAM Unavailable Unavailable [facility] Unavailable Unavailable PHYSICIANS, [facility] VIANNEY MERAZ, VIANNEY MARIYA Unavailable Unavailable DANYELL, DANYELL Unavailable Unavailable DALE RUPINDER, DALE Unavailable Unavailable [facility], Unavailable Unavailable [facility] Unavailable Unavailable INC, [facility] HARTIG KAROLINA, HARTIG Unavailable Unavailable KAROLINA [facility]YN[facility], LYNCH Unavailable Unavailable AND HERNANDEZ LIVAN, HERNANDEZ LIVAN Unavailable Unavailable ANGELA MCKOY, ANGELA Unavailable Unavailable MCKOY LAMBERS DON, LAMBERS Unavailable Unavailable DON [facility], [facility], Unavailable Unavailable [facility], [facility], Unavailable Unavailable PLL[facility], [facility] LOMELI JOH, Unavailable Unavailable LOMELI JOH POLICASTRO RUPINDER, Unavailable Unavailable POLICA[facility] RUPINDER [facility] Unavailable Unavailable [facility], [facility] Unavailable Unavailable [facility], [facility] RENIVÁN TURCIOS, RENIVÁN Unavailable Unavailable KAROLINA AARON, JJ Unavailable Unavailable AGNIESZKA HESS, Unavailable Unavailable MARIA A HEArnold PATEL GUR, PATEL Unavailable Unavailable GUR SARAHI NIEVES, Unavailable Unavailable SARAHI JOSHUA, JOSHUA Unavailable Unavailable [facility] Unavailable Unavailable [facility], [facility], Unavailable Unavailable [facility] Unavailable Unavailable PUBLIC HEALTH DIRECTOR , [facility]ALTH DIRECTOR [facility] Unavailable Unavailable PHYSICIANS, [facility] [...] SPECIFIED R5381 OTHER 07-06-2016 [facility] R5383 OTHER 07-06-2016 [facility] FATIGUE [facility] O031 DELAY/EXCES 04-23-2016 [facility] FOLLOW PRACTICE INCMPL SPONT N939 ABNORMAL 04-22-2016 [facility] UTERINE & EMERGENCY VAGINAL SPECIALI BLEEDING UNSPECIFIED R102 PELVIC AND 04-22-2016 QUALIFIED PERINEAL EMERGENCY PAIN SPECIALI R7889 FINDING OTH 04-22-2016 QUALIFIED SPEC EMERGENCY SUBSTANCES SPECIALI NOT NORM FOUND BLOOD Z8614 PERSONAL HX 04-22-2016 [facility] INFECTION Z880 ALLERGY 04-22-2016 [facility] Z882 ALLERGY 04-22-2016 [facility] STATUS N898 OTHER 04-21-2016 [facility], NONINFLAMMA PLLC TORY DISORDERS VAGINA O036 DELAY/EXCES 04-21-2016 [facility] FLW INC CMPL/UNS SPONT [id number] CARRIER/GERTRUDIS 04-21-2016 [facility] RSIST STAPH Z720 TOBACCO USE 04-21-2016 [facility] R799 ABNORMAL 04-19-2016 ST FINDING OF CAT BLOOD PHYSICIANS CHEMISTRY UNSPECIFIED M1288 OTHER 04-18-2016 [facility] ARTHROPATHI ES NEC OTHER SPEC SITE M609 MYOSITIS 04-18-2016 RAD[facility] UNSPECIFIED ASSOCIATES OF NOT 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 INSUFFICIEN CY B1920 UNS VIRAL 04-15-2016 [facility] HE[facility] C [facility]GENCY WITHOUT PHYSICIANS HEPATIC COMA I330 ACUTE AND 04-15-2016 [facility] SUBACUTE [facility] INFECTIVE PHYSICIANS ENDOCARDITI S M4650 OTHER 04-15-2016 [facility] SPONDYLOPAT PHYSICIANS HIES SITE UNSPECIFIED C53105 SPONDYLOSIS 04-15-2016 [facility] W/O ASSOCIATES MYELOPATH/R OF [facility] ADICULOPATH Y LUMB RGN R7881 BACTEREMIA 04-15-2016 [facility] PHYSICIANS B1710 ACUTE 03-27-2016 HEPATITIS C CAT WITHOUT MED CTR PUBLIC HEALTH DIRECTOR HEPATIC ST COMA Q07721 OTHER LONG 02-29-2016 ST TERM CAT CURRENT MED CTR PUBLIC HEALTH DIRECTOR DRUG ST THERAPY A499 BACTERIAL 02-21-2016 ST INFECTION CAT UNSPECIFIED PHYSICIANS 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 INSUFFICIEN CY I38 ENDOCARDITI 02-15-2016 ANESTHESIA S VALVE GROUP UNSPECIFIED PRACTICE Z452 ENCOUNTER 02-15-2016 RADIOLOGY ADJUSTMENT& ASSOCIATES [facility] VASCULAR ACCESS DEVICE Z331 02-11-2016 [facility] CAT INCIDENTAL PHYSICIANS A4102 SEPSIS D/T 02-10-2016 ST M[facility]ICILL[facility] CAT RSIST HEALTHCARE STAPH EDGE I2690 SEPTIC 02-10-2016 ST PULMONARY CAT EMBO W/O HEALTHCARE ACUTE COR EDGE PULMONALE M89440 PRE-EXISTIN 02-10-2016 ST G ESSENTIAL CAT HTN COMP HEALTHCARE PREG FIRST EDGE TRI F66907 OTH 02-10-2016 ST MATERNAL CAT INF & HEALTHCARE PARASIT DZ EDGE COMP PREG 1ST TRI [id number] DRUG USE 02-10-2016 ST COMPLICATIN CAT G [...] EXAMINATION CAT FOR PHYSICIANS PULMONARY TUBERCULOSI S 38323 TWIN 07-14-2014 ST CAT UNSPECIFIED MED CTR TO EPISODE OF CARE 96520 OT CURRENT 08-09-2011 [facility] MAT CONDS MATERNAL CLASSIFIABL MED E ELSW ANTPRTM 59323 DECR 08-09-2011 [facility] MOVMNTS MATERNAL MGMT MOTH MED ANTPRTM COND/COMP 92756 08-09-2011 [facility] DISTRESS MATERNAL AFFECT MED MANAGEMENT MOTH ANTEPARTUM V239 UNSPECIFIED 08-09-2011 [facility] HIGH-RISK MATERNAL MED 66128 UNS 04-17-2011 [facility] ABNORM MGMT MATERNAL MOTH [...] [place] [address] FREE 7 CAT CAT THYROXINE HEALTH[place] [address] THYROID 7 CAT CAT STIMULATI NG HEALTHCAR HEALTHCAR [place] [address] TRIIODOTH 7 CAT CAT YRONINE T3 FREE HEALTHCAR HEALTHCAR E EDGE E EDGE BLOOD [address] COUNT 7 CAT CAT COMPLETE AUTOMATED HEALTHCAR HEALTHCAR E EDGE E EDGE COMPREHEN [address] SIVE 7 CAT CAT METABOLIC PANEL [place] [address] [facility] SURG 6 [facility] H[facility]P GROSS&RUPINDER ROSCOPIC EXAM INJECTION J2250 [facility] 6 [facility] HCL PER 1 MG BLOOD 57575 [facility] COUNT 6 [facility] COMPLETE [facility] HOSP AUTOMATED INJECTION J2704 [facility] PROPOFOL 6 [facility] 10 MG HOSP HOSP INJECTION J3010 [facility] FENTANYL 6 [facility] HOSP 0.1 MG INJECTION J2210 [facility] 6 [facility] HOSP ONOVINE MALEATE UP TO 0.2 MG INJECTION J2590 [facility] OXYTOCIN 6 [facility] UP [place] [address] [facility] INCOMPLET 6 [facility] E [facility]OS[facility] HOSP ANY TRIMESTER SURGICAL GONADOTRO 02832 [facility] PIN 6 [facility]IC [facility] HOSP QUANTITAT BRENNON SBSQ 93860 [facility] OBSERVATI 6 [facility] ON [facility]OSP HOSP CARE/DAY 15 MINUTES US PREG 36951 [facility] UTERUS 6 [facility] REAL TIME HOSP HOSP W/IMAGE DCMTN TRANSVAG INJECTION J2405 [facility] 6 [facility]R [facility] HOSP ON HCL PER 1 MG INJECTION J2765 [facility] 6 [facility] METOCLOPR [facility]P HOSP AMIDE HCL UP TO 10 MG COLLECTIO 90407 [facility] N VENOUS 6 [facility] BLOOD HOSP HOSP VENIPUNCT URE ANESTHESI 59393 [facility] A 6 [facility] INCOMPLET [facility] HOSP E/MISSED ANESTHESI 77252 ANESTHESI DANYELL A VAGINAL 6 A GROUP PRACTICE PROCEDURE [place] [address] [facility] INFUSION 6 [facility] HY[facility]ATION [facility] HOSP INITIAL 31 MIN-1 [place] [address] [facility] INFUSION 6 [facility]OSP EACH ADDITIONA L HOUR COLLECTIO 42169 [facility] N VENOUS 6 [facility] BLOOD [place] [address] [facility] LACTATE 6 [facility] HOSP HOSP SMR PRIM 49128 [facility] SRC WET 6 [facility] MOUNT HOSP HOSP NFCT AGT IADNA 55833 [facility] CHLAMYDIA 6 [facility] HOSP HOSP TRACHOMAT IS AMPLIFIED PROBE TQ BLOOD 90251 [facility] TYPING 6 [facility] SEROLOGIC HOSP HOSP RH (D) GONADOTRO 84796 [facility] PIN 6 [facility] CHORIONIC HOSP HOSP QUANTITAT BRENNON BLOOD 79474 [facility] COUNT 6 [facility] COMPLETE HOSP HOSP AUTO&AUTO DIFRNTL WBC INITIAL 69488 [facility] OBSERVATI 6 [facility] ON [facility] HOSP CARE/DAY 30 MINUTES CULTURE 12517 [facility] BACTERIAL 6 [facility] BLOOD HOSP HOSP AEROBIC W/ID ISOLATES URNLS DIP 11841 [facility] 6 [facility] STICK/TAB HOSP HOSP LET RGNT AUTO W/O MICROSCOP Y URINE 01669 [facility] 6 [facility] TEST HOSP HOSP VISUAL COLOR CMPRSN METHS ANTIBODY 71734 [facility] SCREEN 6 [facility] RBC EACH HOSP HOSP SERUM TECHNIQUE BLOOD 58557 [facility] TYPING 6 [facility] SEROLOGIC HOSP HOSP ABO IADNA 80056 [facility] NEISSERIA 6 [facility] HOSP HOSP GONORRHOE AE AMPLIFIED PROBE TQ BASIC 62929 [facility] METABOLIC 6 [facility] PANEL HOSP HOSP CALCIUM IONIZED INITIAL 90282 [facility] INPATIENT 6 CAT AM CONSULT NEW/ESTAB PHYSICIAN [place] [address] [place] [address] RADIOLOGY PRETTY LINDA GUIDANCE 6 NEEDLE ASSOCIATE PLACEMENT S OF [facility] SBSQ 01353 [facility] 6 CLINIC, CARE/DAY INC 15 MINUTES BIOPSY 20196 RADIOLOGY PRETTY JAM MUSCLE 6 PERCUTANE ASSOCIATE OUS S OF [facility] NEEDLE ECHO [address] ST ZALKIND TTHRC R-T 6 CAT MIRANDA 2D W/WOM-MOD PHYSICIAN E COMPL S SPEC&COLR D INITIAL 20185 [facility] INPATIENT 6 CLINIC, CLINIC, CONSULT INC INC NEW/ESTAB PT 55 MIN MRI 12297 RADIOLOG[facility] BILLY SCO SPINAL 6 CANAL ASSOCIATE LUMBAR S OF [facility] W/O & W/CONTR MATRL SEDIMENTA [address] TION RATE 6 [facility] [place] RBC MED CTR MED CTR AUTOMATED PUBLIC [facility] DIRECTOR ST PUBLIC [facility] DIRECTOR ST CULTURE [address] BACTERIAL 6 [facility] [place] BLOOD MED CTR MED CTR AEROBIC [facility] DIRECTOR ST [facility] DIRECTOR ST W/ID ISOLATES BLOOD [address] COUNT 6 [facility] [place] COMPLETE MED CTR MED CTR AUTOMATED [facility] DIRECTOR ST [facility] DIRECTOR ST COLLECTIO [address] N VENOUS 6 CAT CAT BLOOD MED CTR MED CTR VENIPUNCT PUBLIC [facility] DIRECTOR ST [facility] DIRECTOR ST URE C-REACTIV [address] E PROTEIN 6 CAT CAT MED CTR MED CTR [facility] DIRECTOR ST [facility] ST HEPATIC [address] FUNCTION 6 CAT ACT PANEL MED CTR MED CTR [facility] [place] [address] INFUSION 6 CAT CAT THERAPY/P MED CTR MED CTR ROPHYLAXI PUBLIC [facility] DIRECTOR ST [facility] DIRECTOR ST S /DX 1ST TO [address] IN[address] 6 CAT CAT DAPTOMYCI MED CTR MED CTR N [address] [facility] DIRECTOR ST INFUSION J7050 [address] ST NORMAL 6 CAT CAT SALINE MED CTR MED CTR SOLUTION [facility] DIRECTOR ST [facility] DIRECTOR ST [address] NORMAL 6 CAT CAT SALINE MED CTR MED CTR SOLUTION [facility] DIRECTOR ST [facility] DIRECT[facility] ST [address] IN[address] 6 CAT CAT DAPTOMYCI MED CTR MED CTR N 1 MG [facility] [place] [address] INFUSION 6 CAT CAT THERAPY/P MED CTR MED CTR ROPHYLAXI PUBLIC [facility] DIRECTOR ST [facility] DIRECTOR ST S /DX 1ST TO [address] [place] [address] INFUSION 6 CAT CAT THERAPY/P MED CTR MED CTR ROPHYLAXI PUBLIC [facility] DIRECTOR ST [facility] DIRECTOR ST S /DX 1ST TO [address] IN[address] 6 CAT CAT DAPTOMYCI MED CTR MED CTR N 1 [address] DIRECTOR ST INFUSION J7050 ST ST NORMAL 6 CAT CAT SALINE MED CTR MED CTR SOLUTION [facility] DIRECTOR ST [facility] DIRECT[facility] ST [address] NORMAL 6 CAT CAT SALINE MED CTR MED CTR SOLUTION [facility] DIRECTOR ST [facility] DIRECT[facility] ST [address] IN[address] 6 CAT CAT DAPTOMYCI MED CTR MED CTR N 1 MG [facility] [place] [address] INFUSION 6 CAT CAT THERAPY/P MED CTR MED CTR ROPHYLAXI PUBLIC [facility] DIRECTOR ST [facility] DIRECTOR ST S /DX 1ST TO [address] [place] [address] INFUSION 6 CAT CAT THERAPY/P MED CTR MED CTR ROPHYLAXI PUBLIC [facility] DIRECTOR ST [facility] DIRECTOR ST S /DX 1ST TO [address] N VENOUS 6 CAT CAT BLOOD MED CTR MED CTR VENIPUNCT PUBLIC [facility] DIRECTOR ST [facility] DIRECTOR ST URE INJECTION J0878 ST ST 6 CAT CAT DAPTOMYCI MED CTR MED CTR N 1 MG [facility] ST BLOOD [address] COUNT 6 CAT [facility] COMPLETE MED CTR MED CTR AUTO&AUTO [facility] DIRECTOR ST [facility] DIRECTOR ST DIFRNTL WBC SEDIMENTA [address] TION RATE 6 CAT CAT RBC MED CTR MED CTR AUTOMATED [facility] DIRECTOR ST [facility] DIRECTOR ST INFUSION J7050 ST ST NORMAL 6 CAT CAT SALINE MED CTR MED CTR SOLUTION [facility] DIRECTOR ST [facility] DIRECT[facility] ST [address] KINASE 6 CAT CAT TOTAL MED CTR MED CTR [facility] DIRECT[facility] DIRECTOR ST COMPREHEN [address] SIVE 6 CAT CAT METABOLIC MED CTR MED CTR PANEL [facility] ST C-REACTIV [address] E PROTEIN 6 CAT CAT MED CTR MED CTR [facility] DIRECTOR ST [facility] DIRECTOR ST INFUSION J7050 ST ST NORMAL 6 CAT CAT SALINE MED CTR MED CTR SOLUTION [facility] DIRECTOR [facility] DIRECT[facility] ST [address] IN[address] 6 CAT CAT DAPTOMYCI MED CTR MED CTR N 1 MG [facility] [address] [place] [address] INFUSION 6 CAT CAT THERAPY/P MED CTR MED CTR ROPHYLAXI [facility] DIRECTOR ST [facility] DIRECTOR ST S /DX 1ST TO [address] [place] [address] INFUSION 6 CAT CAT THERAPY/P MED CTR MED CTR ROPHYLAXI PUBLIC [facility] DIRECTOR ST [facility] DIRECTOR ST S /DX 1ST TO [address] [place] [address] INFUSION 6 CAT CAT THERAPY/P MED CTR MED CTR ROPHYLAXI PUBLIC [facility] DIRECTOR ST [facility] DIRECTOR ST S /DX 1ST TO [address] IN[address] 6 CAT CAT DAPTOMYCI MED CTR MED CTR N 1 MG [address] ST INFUSION J7050 ST ST NORMAL 6 CAT CAT SALINE MED CTR MED CTR SOLUTION [facility] DIRECTOR ST [facility] ST [address] NORMAL 6 CAT CAT SALINE MED CTR MED CTR SOLUTION [facility] DIRECTOR [facility] ST [address] IN[address] 6 CAT CAT DAPTOMYCI MED CTR MED CTR N 1 MG [facility] [address] [place] [address] INFUSION 6 CAT CAT THERAPY/P MED CTR MED CTR ROPHYLAXI PUBLIC [facility] DIRECTOR ST [facility] DIRECT[facility] ST S /DX 1ST TO [address] KINASE MB 6 CAT CAT FRACTION MED CTR MED CTR ONLY [facility] DIRECTOR ST [facility] DIRECTOR ST INJECTION J[address] [facility] 6 CAT CAT DAPTOMYCI MED CTR MED CTR N 1 MG [facility] [facility] [address] COUNT 6 CAT CAT COMPLETE MED CTR MED CTR AUTO&AUTO [facility] DIRECTOR [facility] [place] [address] INFUSION 6 CAT CAT THERAPY/P MED CTR MED CTR ROPHYLAXI [facility] DIRECTOR ST [facility] DIRECT[facility] ST S /DX 1ST TO [address] IN[address] NORMAL 6 CAT CAT SALINE MED CTR MED CTR SOLUTION [facility] ST [address] METABOLIC 6 CAT CAT PANEL MED CTR MED CTR CALCIUM [facility] DIRECT[facility] ST [facility] [address] TOTAL SEDIMENTA [address] TION RATE 6 CAT CAT RBC MED CTR MED CTR AUTOMATED [facility] ST C-REACTIV [address] E PROTEIN 6 CAT CAT MED CTR MED CTR [facility] ST INFUSION J[address] ST NORMAL 6 CAT CAT SALINE MED CTR MED CTR SOLUTION [facility] DIRECTOR ST [facility] [address] [place] [address] INFUSION 6 CAT CAT THERAPY/P MED CTR MED CTR ROPHYLAXI [facility] DIRECTOR ST [facility] DIRECTOR ST S /DX 1ST TO [address] IN[address] 6 CAT CAT DAPTOMYCI MED CTR MED CTR N [address] ST INJECTION J0[address] 6 CAT CAT DAPTOMYCI MED CTR MED CTR N 1 MG [facility] [place] [address] INFUSION 6 CAT CAT THERAPY/P MED CTR MED CTR ROPHYLAXI [facility] DIRECTOR ST [facility] DIRECT[facility] ST S /DX 1ST TO [address] IN[address] NORMAL 6 CAT CAT SALINE MED CTR MED CTR SOLUTION [facility] ST [address] NORMAL 6 CAT CAT SALINE MED CTR MED CTR SOLUTION [facility] DIRECTOR [facility] [address] [place] [address] INFUSION 6 CAT CAT THERAPY/P MED CTR MED CTR ROPHYLAXI [facility] DIRECTOR ST [facility] DIRECT[facility] ST S /DX 1ST TO [address] IN[address] 6 CAT CAT DAPTOMYCI MED CTR MED CTR N 1 MG [address] [facility] [address] ST INJECTION J0[address] 6 CAT CAT DAPTOMYCI MED CTR MED CTR N 1 MG [facility] ST INFUSION [address] ST NORMAL 6 CAT CAT SALINE MED CTR MED CTR SOLUTION [facility] [address] NORMAL 6 CAT CAT SALINE MED CTR MED CTR SOLUTION [facility] [address] IN[address] 6 CAT CAT DAPTOMYCI MED CTR MED CTR N 1 [address] [facility] [address] [place] [address] INFUSION 6 CAT CAT THERAPY/P MED CTR MED CTR ROPHYLAXI [facility] DIRECTOR ST [facility] DIRECTOR ST S /DX 1ST TO [address] IN[address] 6 CAT CAT DAPTOMYCI MED CTR MED CTR N 1 [address] [facility] [address] [address] [place] [address] INFUSION 6 CAT CAT THERAPY/P MED CTR MED CTR ROPHYLAXI [facility] DIRECTOR ST [facility] DIRECT[facility] ST S /DX 1ST TO [address] IN[address] NORMAL 6 CAT CAT SALINE MED CTR MED CTR SOLUTION [facility] ST [address] NORMAL 6 CAT CAT SALINE MED CTR MED CTR SOLUTION [facility] [address] TION RATE 6 CAT CAT RBC MED CTR MED CTR AUTOMATED [facility] DIRECTOR ST [facility] DIRECT[facility] ST CREATINE [address] KINASE 6 CAT CAT TOTAL MED CTR MED CTR [facility] DIRECT[facility] ST BASIC [address] METABOLIC 6 CAT CAT PANEL MED CTR MED CTR CALCIUM [facility] [place] [address] INFUSION 6 CAT CAT THERAPY/P MED CTR MED CTR ROPHYLAXI PUBLIC [facility] DIRECTOR ST [facility] DIRECT[facility] ST S /DX 1ST TO [address] N VENOUS 6 CAT CAT BLOOD MED CTR MED CTR VENIPUNCT PUBLIC [facility] DIRECTOR ST [facility] DIRECTOR ST URE INJECTION J0878 ST ST 6 CAT CAT DAPTOMYCI MED CTR MED CTR N [address] ST BLOOD [address] COUNT 6 CAT CAT COMPLETE MED CTR MED CTR AUTO&AUTO [facility] DIRECTOR ST [facility] ST DIFRNTL WBC C-REACTIV [address] E PROTEIN 6 CAT CAT MED CTR MED CTR [facility] ST INJECTION J[address] [facility] 6 CAT CAT DAPTOMYCI MED CTR MED CTR N 1 [address] [facility] [address] [place] [address] INFUSION 6 CAT CAT THERAPY/P MED CTR MED CTR ROPHYLAXI PUBLIC [facility] DIRECTOR ST [facility] DIRECTOR ST S /DX 1ST TO [address] IN[address] NORMAL 6 CAT CAT SALINE MED CTR MED CTR SOLUTION [facility] DIRECTOR [facility] DIRECT[facility] ST [address] NORMAL 6 CAT CAT SALINE MED CTR MED CTR SOLUTION [facility] DIRECTOR [facility] [address] [place] [address] INFUSION 6 CAT CAT THERAPY/P MED CTR MED CTR ROPHYLAXI PUBLIC [facility] DIRECTOR ST [facility] DIRECTOR ST S /DX 1ST TO [address] IN[address] 6 CAT CAT DAPTOMYCI MED CTR MED CTR N 1 [address] [facility] [address] [address] [place] [address] INFUSION 6 CAT CAT THERAPY/P MED CTR MED CTR ROPHYLAXI PUBLIC [facility] DIRECTOR ST [facility] DIRECT[facility] ST S /DX 1ST TO [address] IN[address] 6 CAT CAT DAPTOMYCI MED CTR MED CTR N 1 [address] ST INFUSION J70[address] ST NORMAL 6 CAT CAT SALINE MED CTR MED CTR SOLUTION [facility] DIRECT[facility] ST [facility] [address] NORMAL 6 CAT CAT SALINE MED CTR MED CTR SOLUTION [facility] DIRECTOR [facility] [address] [place] [address] INFUSION 6 CAT CAT THERAPY/P MED CTR MED CTR ROPHYLAXI PUBLIC [facility] DIRECTOR ST [facility] DIRECTOR ST S /DX 1ST TO [address] IN[address] 6 CAT CAT DAPTOMYCI MED CTR MED CTR N [address] [facility] [address] [place] [address] INFUSION 6 CAT CAT THERAPY/P MED CTR MED CTR ROPHYLAXI PUBLIC [facility] DIRECTOR ST [facility] DIRECTOR ST S /DX 1ST TO [address] IN[address] 6 CAT CAT DAPTOMYCI MED CTR MED CTR N 1 [address] [facility] [address] ST INFUSION J[address] ST NORMAL 6 CAT CAT SALINE MED CTR MED CTR SOLUTION [facility] DIRECT[facility] [address] NORMAL 6 CAT CAT SALINE MED CTR MED CTR SOLUTION [facility] DIRECTOR [facility] ST [address] IN[address] 6 CAT CAT DAPTOMYCI MED CTR MED CTR N 1 [address] [facility] [place] [address] INFUSION 6 CAT CAT THERAPY/P MED CTR MED CTR ROPHYLAXI [facility] DIRECTOR ST [facility] DIRECTOR ST S /DX 1ST TO 1 HR [facility] [address] CARE/DAY 25 PHYSICIAN MINUTES S HOSPITAL [address] [facility] DISCHARGE [address] [place] [address] MANAGEMEN PHYSICIAN T > 30 S MIN [facility] [address] CARE/DAY 25 PHYSICIAN MINUTES S [facility] [address] CARE/DAY 35 PHYSICIAN MINUTES S DOPPLER [address] [facility] FA[facility] MARIYA ECHOCARD 6 CAT PULSE WAVE PHYSICIAN W/SPECTRA S L DISPLAY INSJ [facility] [address] RAD[facility] [place] CVC W/O 6 MCKOY SUBQ ASSOCIATE PORT/POULTRY TRIMMER S OF [facility] AGE 7 YR/> ANES 63434 ANESTHESI JJ NON-INVAS 6 A GROUP [facility] BRENNON PRACTICE IMAGING/R ADIATION THERAPY ECHO [address] [facility] FA[facility] MARIYA TRANSESOP 6 CAT HAG R-T 2D W/PRB PHYSICIAN IMG S ACQUISJ I&R DOP [address]7570 ST [facility] MARI[facility] ECHOCARD 6 CAT COLOR FLOW PHYSICIAN V[place] [address] RADIOLOGY [place] ACCESS 6 MCKOY SITS VSL ASSOCIATE PATENCY S OF [facility] NDL ENTRY FLUORO 01407 RAD[facility] [place] CENTRAL 6 MCKOY VENOUS ASSOCIATE ACCESS S OF [facility] DEV PLACEMENT FLUORO [id number] ST ST SUP VENA 6 CAT [place] CAVA LOW [facility] CONTRST E EDGE E EDGE GUID INSERTION [id number] ST ST INFUSION 6 CAT CAT DEVC SUPERIOR HEALTHCAR HEALTHCAR VENA CAVA E EDGE E EDGE PERQ ECHO [address] TTHRC R-T 6 CAT [place] 2D W/WOM-MOD PHYSICIAN PHYSICIAN E COMPL S S SPEC&COLR D INITIAL 19693 [facility] INPATIENT 6 CAT CONSULT NEW/ESTAB PHYSICIAN PT 40 S MIN CULTURE 35082 [facility] BACTERIAL 6 [facility] INC [place] [address] [facility] INFUSION 6 [facility] THERAPY/P INC INC ROPHYLAXI S /DX 1ST TO 1 HR BLOOD 30150 [facility] COUNT 6 [facility] COMPLETE INC INC AUTO&AUTO DIFRNTL WBC URNLS DIP 32113 [facility] 6 [facility] STICK/TAB INC INC LET REAGENT AUTO MICROSCOP Y COMPREHEN 94347 [facility] SIVE 6 [facility] [place] [address] [facility] STREPTOCO 6 [facility] CCUS INC INC GROUP A CUL BACT 53828 [facility] XCPT 6 [facility] URINE INC INC BLOOD/STO OL AEROBIC ISOL SKIN TEST 71835 [facility] 5 CAT TURCIOS TUBERCULO SIS PHYSICIAN [place] V [address] [facility] SURG 5 CAT HESS PATHOLOGY MED CTR GROSS&RUPINDER ROSCOPIC EXAM 37372 [facility] BIOPHYSIC 2 MATERNAL AND AL PROFILE MED W/O NON-STRES S TESTING US PREG 49059 [facility] UTERUS 2 MATERNAL AND W/DETAIL MED MAGUI 1ST GESTATION US PREG 33136 [facility] LAMBERS UTERUS 1 MATERNAL DON W/DETAIL ME MAGUI 1ST GESTATION Encounters Encounter Start End Date Code Location Performer Type Date [facility] ST - 7 7 CAT OUTPATIEN T [facility] 43601 [facility] HIGH/URGE NT SEVERITY EMERGENCY 79247 QUALIFIED POLICASTR DEPT 6 6 O RUPINDER VISIT EMERGENCY HIGH SPECIALI SEVERITY& THREAT [facility] GOOD - 6 6 [facility] [id number] JEWELS HERNANDEZ LIVAN 6 6 PHYSICIAN DEPARTMEN S, PLLC T VISIT HIGH/URGE NT SEVERITY EMERGENCY 73765 [facility] 6 6 [facility] DEPARTMEN INC T VISIT LIMITED/M INOR [facility] MAY[facility] - 6 6 [facility] OUTPATIEN INC T EMERGENCY [id number] [facility] DEPT 6 6 EMERGENCY GRE VISIT HIGH PHYSICIAN SEVERITY& S THREAT [facility] ST - 6 6 [facility] OUTPATIEN [facility] T [facility] ST - 6 6 [facility] OUT[facility] T [facility] - 6 6 [facility] OUTPATIEN [facility] - 6 6 CAT OUTPATIEN [facility] - 6 6 CAT OUTPATIEN MED [facility] - 6 6 CAT OUTPATIEN MED [facility] - 6 6 CAT OUTPATIEN MED [facility] - 6 6 CAT OUTPATIEN MED [facility] - 6 6 CAT OUTPATIEN [facility] - 6 6 CAT OUTPATIEN MED CTR [facility] [id number] [facility] 6 S DISEASE AGNIESZKA T VISIT [facility] - 6 6 CAT OUTPATIEN [facility] - 6 6 CAT OUTPAT[facility]EN [facility] - 6 6 CAT OUTPATIEN [facility] - 6 6 CAT OUTPATIEN [facility] - 6 6 CAT OUTPATIEN [facility] - 6 6 CAT OUTPATIEN [facility] - 6 6 [facility] - 6 6 [facility] EM[facility]GENC[facility] 10710 [facility] 6 6 [facility] DEPARTMEN INC T VISIT LOW/MODER SEVERITY EMERGENCY [id number] JEWELS HUNTER 6 6 PHYSICIAN YOHANA PIPERC T VISIT HIGH/URGE NT SEVERITY HOSPITAL [facility] - 6 6 [facility] OUTPATIEN INC T EMERGENCY 06810 JEWELS GARCIA 6 6 PHYSICIAN [facility] T VISIT HIGH/URGE NT SEVERITY EMERGENCY 32662 JEWELS GARCIA 6 6 PHYSICIAN [facility] T VISIT MODERATE SEVERITY [facility] - 6 6 [facility] OUTPATIEN INC T EMERGENCY 31795 [place] 6 6 [facility] DEPARTMEN INC T VISIT LOW/MODER SEVERITY
--- OUTSIDE RECORDS SUMMARY | 2017-04-08 06:37 | External Medical Summary Rpt ---
Demographics Home Phone Preferred Language Citizen Of [place] Marital Status Unknown Yazidism Affiliation Unknown Race Unknown Ethnic Group Unknown Author Author , LIBAN LOUIE Address Unknown Phone [email or web address] Support Name Relationship Address Phone [place], Next [...] ied TST- 08-2 Intr 96 [phone] Hist [place] PPD 0-20 ader oric intr 15 mal al ader Info mal rmat ion - Sour ce Unsp ecif ied
--- OUTSIDE RECORDS SUMMARY | 2017-04-08 06:37 | External Medical Summary Rpt ---
Demographics Home Phone Preferred Language Filipino Marital Status Unknown Episcopal Affiliation Unknown Race Unknown Ethnic Group Unknown Author Author , LIBAN LOUIE Address Unknown Phone [email or web address] Support Name Relationship Address Phone [place], Next [...] ied TST- 08-2 Intr 96 [phone] Hist [place] PPD 0-20 ader oric intr 15 mal al ader Info mal rmat ion - Sour ce Unsp ecif ied
== END 2017-03-13 11:10 | disposition home or self-care (01) | DRG 603 ==
LOC: ER 01:35 → 2ND 03:20
PROVIDERS: Emergency Medicine
DX: L03.211 Cellulitis of face (principal); B95.62 Methicillin resistant Staphylococcus aureus infection as the cause of diseases classified elsewhere; Z72.0 Tobacco use; Z87.898 Personal history of other specified conditions
CPT/HCPCS: J3370